=== PATIENT | male | born 1945 | race Caucasian/White ===

== ENCOUNTER → 2023-11-20 14:56 | Day surgery (SDC) | payer MEDICARE, SELFPAY ==
[2023-11-20] VITALS (15 sets, daily range): BP systolic 78–168; BP diastolic 46–81; BMI 20.7
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
[2023-11-20] MEDS: GlucaGen 1 MG IV (08:04)
[2023-11-20 08:34] LABS: % Basophils 0.2 % (0-2); % Immature Granulocytes 0.5 % (0-0.5); % Lymphocytes 7.3 % (20.5-51.1); % Monocytes 4.7 % (1.7-9.3); % Neutrophils 87.3 % (42.2-75.2); Absolute Immature Granulocytes 0.1 10^3/uL (0-0.05); Absolute Lymphocytes 1.2 10^3/uL (1.2-3.4); Absolute Monocytes 0.8 10^3/uL (0.1-0.6); Absolute Neutrophils 14.8 10^3/uL (1.4-6.5); Hematocrit 35.6 % (39.0-52.0); Hemoglobin 11.7 g/dL (13.0-18.0); Mean Corp Hgb Conc. 32.9 g/dL (33.0-37.0); Mean Corpuscular Hgb 29.5 pg (27.0-31.0); Mean Corpuscular Volume 89.7 fL (80.0-94.0); Mean Platelet Volume 11.1 fL (7.4-10.4); Nucleated Red Blood Cells % 0 % (-); Platelet Count 248 10^3/uL (130-400); Red Blood Cell Count 3.97 10^6/uL (4.70-6.10); Red Cell Dist. Width 14.7 % (11.5-14.5); White Blood Cell Count 16.9 10^3/uL (4.8-10.8)
[2023-11-20 08:45] LABS: ALT (SGPT) 16 U/L (0-50); AST (SGOT) 19 U/L (17-59); Albumin 4.4 g/dl (3.5-5.0); Alkaline Phosphatase 126 U/L (38-126); Blood Urea Nitrogen 25 mg/dl (9-20); Calcium 9.4 mg/dl (8.4-10.2); Carbon Dioxide 26 mmol/L (22-30); Chloride 106 mmol/L (98-107); Estimated Creatinine Clearance 30 ml/min; Glucose 117 mg/dl (70-99); Potassium 3.8 mmol/L (3.5-5.1); Sodium 143 mmol/L (135-145); Total Bilirubin 0.4 mg/dl (0.2-1.3); Total Protein 7.5 g/dl (6.3-8.2); eGFR 47.36
--- NOTE | 2023-11-20 09:02 | CON.GI ---
Addendum entered and electronically signed by Pablo Do MD 11/20/23 09:45:
I saw and examined the patient.
The [employer] or PA's note was reviewed and I agree with the note.
Comment: 78 yo male ate steak on Monday that did not pass. He has poor dentition. No prior food impaction. Hx traumatic brain injury and seizure d/oEG
REC:
EGD to remove food impaction
Original Note:
Consultation
-
Date/Time Consultation Requested: 11/20/23 0840
Date/Time Consultation Performed: 11/20/23 0900
Requesting Provider: KELLY Delgado
Performing Provider: Dr. Do/YVROSE Suarez
Reason for Consultation: food impaction
Medical History
Chief Complaint / HPI
Chief Complaint: food impaction
History of Present Illness:
78-year-old male with past medical history of traumatic brain injury, ataxia, hypertension, seizures with craniotomy and right-sided head plate presents to the emergency room with food bolus that occurred on Monday and present to the emergency
room this morning. Asked to evaluate for the same. The patient states that he was eating 2 pieces of steak on Monday which she states was rare. He states that the first piece went down without difficulty. However the second piece became lodged
in his esophagus. He has been unable to tolerate secretions ever since. He states that the size of the piece of steak was about the size of his thumb. He has no teeth. The patient denies any history of dysphagia or food impactions prior to this.
The patient takes aspirin but has been unable to take any of his medications since that time. The patient denies any fevers, chills, nausea, melena, hematochezia, odynophagia, early satiety or unintentional weight loss. The patient is currently
spitting secretions into a basin. He denies any abdominal pain. He denies any respiratory distress.
Past Medical History
Past Medical History: Other (Traumatic brain injury, ataxia, hypertension, seizures)
Past Surgical History: Other (Craniotomy with head plate, right hip fracture 2018, right femur fracture,)
Social History
Tobacco: Non-Smoker
Alcohol: None
Drug: None
Personal:
Living: With Family
Family History
Family History: Other (No family history gastrointestinal malignancy or inflammatory bowel disease)
Allergies / Home Medications
Allergy/AdvReac Type Severity Reaction Status Date / Time
No Known Allergies Allergy Verified 10/29/22 15:56
Medication Instructions Recorded
cholecalciferol (vitamin D3) 50 50 mcg PO DAILY Supplement 10/29/22
mcg (2,000 unit) capsule (Vitamin
D3)
levetiracetam 1,000 mg tablet 1,000 mg PO QPM Seizures 10/29/22
levetiracetam 1,000 mg tablet 500 mg PO DAILY Seizures 10/29/22
phenobarbital 32.4 mg tablet 68.8 mg PO DAILY Seizures 10/29/22
acetaminophen 500 mg tablet 1,000 mg PO Q6HPRN PRN fever, mild 11/01/22
to mod pain #100 tabs
aspirin 81 mg chewable tablet 81 mg PO DAILY #100 tabs 11/01/22
Review of Systems
-
All other systems: A 12 pt ROS was Negative except as stated above in HPI
Vital Signs
Temp Pulse Resp BP Pulse Ox
99.2 F 99 28 138/81 93
11/20/23 07:37 11/20/23 08:30 11/20/23 08:30 11/20/23 08:00 11/20/23 08:30
Physical Exam
Exam
General: Other (Patient sitting upright spitting clear secretions into basin)
HEENT: Anicteric
Respiratory: Clear
Cardiac: Regular Rhythm
GI: Soft, Non Tender, Non Distended and Normal Bowel Sounds
Skin: Warm and Dry
Neuro: AO x 3
Results
WBC 16.9 10^3/uL (4.8-10.8) H 11/20/23 08:06
Hgb 11.7 g/dL (13.0-18.0) L 11/20/23 08:06
Hct 35.6 % (39.0-52.0) L 11/20/23 08:06
MCV 89.7 fL (80.0-94.0) 11/20/23 08:06
Plt Count 248 10^3/uL (130-400) 11/20/23 08:06
Absolute Neuts (auto) 14.8 10^3/uL (1.4-6.5) H 11/20/23 08:06
Sodium 143 mmol/L (135-145) 11/20/23 08:06
Potassium 3.8 mmol/L (3.5-5.1) 11/20/23 08:06
Chloride 106 mmol/L (98-107) 11/20/23 08:06
Carbon Dioxide 26 mmol/L (22-30) 11/20/23 08:06
BUN 25 mg/dl (9-20) H 11/20/23 08:06
Creatinine 1.5 mg/dL (0.7-1.3) H 11/20/23 08:06
Calcium 9.4 mg/dl (8.4-10.2) 11/20/23 08:06
Total Bilirubin 0.4 mg/dl (0.2-1.3) 11/20/23 08:06
AST 19 U/L (17-59) 11/20/23 08:06
ALT 16 U/L (0-50) 11/20/23 08:06
Alkaline Phosphatase 126 U/L (38-126) 11/20/23 08:06
Diagnostic Image Results:
None
Prior GI Procedures:
EGD: None
Colonoscopy: Patient states he had colonoscopy approximately 1 year ago in [place]. He states he has a history of polyps.
Assessment / Plan
-
78-year-old male with past medical history of traumatic brain injury, ataxia, hypertension, seizures with craniotomy and right-sided head plate presents to the emergency room with food bolus that occurred on Monday and present to the emergency
room this morning. Patient with food bolus associated with eating steak on Monday. Spitting up secretions at this time unable to tolerate. Glucagon did not pass food bolus.
Impression:
Food bolus
Plan:
-EGD today
-Discussed with patient probable need for intubation giving the fact that it is a food bolus as well as spitting up secretions patient aware.
-Further recommendations post EGD.
-
-
Thank you for consultation and allowing me to participate in the patient's care. Please call the stone driller helper GI physician during the after hours with any questions or concerns.
[2023-11-20] MEDS: KEPPRA 1000 MG IV (09:17)
--- NOTE | 2023-11-20 09:43 | CM ---
Addendum entered by Ilda Dinero RN 11/20/23 14:36:
JODIE updated GI lab that patient will need an ambulance ride home as cannot burr picker.
Original Note:
JODIE spoke with patient's who confirmed the phone number as [phone] (cell) Patient's stated that she is unable to pick him up from the hospital. She further stated her children are unwilling to assist with transportation. Patient
will be available to supervise patient once he is returned home. JODIE updated ED PA and advised that patient will need assistance with transportation home.
== END | disposition home or self-care (01) ==
LOC: EMR 07:32 → SDS 14:56
PROVIDERS: Physician Assistant; EMERGENCY PHYSICIAN Emergency Medicine
DX: T18.128A Food in esophagus causing other injury, initial encounter (principal); W44.F3XA Food entering into or through a natural orifice, initial encounter; Q39.9 Congenital malformation of esophagus, unspecified; K22.89 Other specified disease of esophagus; K20.80 Other esophagitis without bleeding
CPT/HCPCS: 43247; 43239; 88305; 80053; 85025; 96374; 96375; 99285; J1610

== ENCOUNTER 2023-11-23 18:27 | Inpatient (IN) | payer MEDICARE, SELFPAY ==
[2023-11-23] VITALS (7 sets, daily range): BP systolic 113–147; BP diastolic 58–70; BMI 20.8; BMI 19.9
[2023-11-23 14:56] LABS: % Basophils 0.4 % (0-2); % Eosinophils 1.6 % (0-6); % Immature Granulocytes 0.3 % (0-0.5); % Monocytes 6.5 % (1.7-9.3); % Neutrophils 79.2 % (42.2-75.2); Absolute Eosinophils 0.2 10^3/uL (0-0.7); Absolute Lymphocytes 1.2 10^3/uL (1.2-3.4); Absolute Monocytes 0.7 10^3/uL (0.1-0.6); Absolute Neutrophils 7.9 10^3/uL (1.4-6.5); Hematocrit 31.6 % (39.0-52.0); Hemoglobin 10.4 g/dL (13.0-18.0); Mean Corp Hgb Conc. 32.9 g/dL (33.0-37.0); Mean Corpuscular Hgb 29.9 pg (27.0-31.0); Mean Corpuscular Volume 90.8 fL (80.0-94.0); Mean Platelet Volume 10.9 fL (7.4-10.4); Nucleated Red Blood Cells % 0 % (-); Platelet Count 221 10^3/uL (130-400); Red Blood Cell Count 3.48 10^6/uL (4.70-6.10); Red Cell Dist. Width 14.6 % (11.5-14.5)
[2023-11-23 15:04] LABS: ALT (SGPT) 14 U/L (0-50); AST (SGOT) 16 U/L (17-59); Albumin 3.8 g/dl (3.5-5.0); Alkaline Phosphatase 113 U/L (38-126); Blood Urea Nitrogen 13 mg/dl (9-20); Calcium 8.4 mg/dl (8.4-10.2); Carbon Dioxide 22 mmol/L (22-30); Chloride 108 mmol/L (98-107); Estimated Creatinine Clearance 38 ml/min; Glucose 114 mg/dl (70-99); Potassium 4.3 mmol/L (3.5-5.1); Sodium 136 mmol/L (135-145); Total Bilirubin 0.3 mg/dl (0.2-1.3); Total Protein 6.6 g/dl (6.3-8.2); eGFR > 60.00
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
--- NOTE | 2023-11-23 16:33 | CM ---
Alert awake confused patient who lives with his Suzette and grandson Walt who lives in a 2 story home with 2 step to enter and bed and bathroom on first floor. He is assisted in all activities of daily living.Spoke with Walt he requested
[facility] SNF. Will need auth.
[facility] /[facility] SNF history
Pharmacy [facility]
PCP DR Kellogg
PLAN To SNF after located and auth
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
[2023-11-23] MEDS: LUMINAL 64.7999999999999972 MG PO (20:49)
[2023-11-23] MEDS: COLACE 100 MG PO (20:49)
[2023-11-23] MEDS: KEPPRA 500 MG PO (20:50)
[2023-11-23] MEDS: HEPARIN 5000 UNITS SC (20:50)
[2023-11-24 03:42] LABS: Urine Albumin Trace (Neg - Trace); Urine Bilirubin Negative (Negative); Urine Character Slightly Cloudy (Clear); Urine Color Yellow; Urine Glucose Negative (Negative); Urine Ketone Negative (Negative); Urine Leukocyte Trace (Negative); Urine Nitrite Negative (Negative); Urine Occult Blood Negative (Negative); Urine Urobilinogen Negative (Neg - 1+); Urine pH 6.5 (5.0-9.0)
[2023-11-24 05:15] LABS: Urine Bacteria Many (Negative); Urine Red Blood Cell 0-2 /HPF (0-2); Urine Squamous Cell >30 /LPF (Few); Urine White Cell 26-30 /HPF (0-5)
[2023-11-24 07:30] VITALS: BP 129/67
[2023-11-24] MEDS: KEPPRA 500 MG PO ×2 (07:37→20:36)
[2023-11-24] MEDS: COLACE 100 MG PO ×2 (07:37→20:30)
[2023-11-24] MEDS: HEPARIN 5000 UNITS SC ×2 (07:38→20:30)
[2023-11-24 09:23] VITALS: BP 116/59; PULSE 79; O2SAT 95
[2023-11-24 09:39] LABS: % Basophils 0.5 % (0-2); % Eosinophils 2.7 % (0-6); % Immature Granulocytes 0.5 % (0-0.5); % Lymphocytes 29.9 % (20.5-51.1); % Monocytes 8.1 % (1.7-9.3); % Neutrophils 58.3 % (42.2-75.2); Absolute Eosinophils 0.2 10^3/uL (0-0.7); Absolute Lymphocytes 2.2 10^3/uL (1.2-3.4); Absolute Monocytes 0.6 10^3/uL (0.1-0.6); Absolute Neutrophils 4.3 10^3/uL (1.4-6.5); Hematocrit 32.6 % (39.0-52.0); Hemoglobin 10.3 g/dL (13.0-18.0); Mean Corp Hgb Conc. 31.6 g/dL (33.0-37.0); Mean Corpuscular Hgb 29.5 pg (27.0-31.0); Mean Corpuscular Volume 93.4 fL (80.0-94.0); Mean Platelet Volume 11.2 fL (7.4-10.4); Nucleated Red Blood Cells % 0 % (-); Platelet Count 222 10^3/uL (130-400); Red Blood Cell Count 3.49 10^6/uL (4.70-6.10); Red Cell Dist. Width 14.7 % (11.5-14.5); White Blood Cell Count 7.4 10^3/uL (4.8-10.8)
[2023-11-24 10:21] LABS: ALT (SGPT) 12 U/L (0-50); AST (SGOT) 14 U/L (17-59); Albumin 3.6 g/dl (3.5-5.0); Alkaline Phosphatase 116 U/L (38-126); Blood Urea Nitrogen 15 mg/dl (9-20); Calcium 8.4 mg/dl (8.4-10.2); Carbon Dioxide 25 mmol/L (22-30); Chloride 106 mmol/L (98-107); Creatine Phosphokinase 37 U/L (55-170); Estimated Creatinine Clearance 36 ml/min; Glucose 79 mg/dl (70-99); Magnesium 1.9 mg/dl (1.6-2.3); Potassium 3.9 mmol/L (3.5-5.1); Sodium 138 mmol/L (135-145); Total Bilirubin 0.5 mg/dl (0.2-1.3); Total Protein 6.3 g/dl (6.3-8.2); eGFR > 60.00
[2023-11-24 10:43] LABS: TSH 0.75 uIU/ml (0.47-4.68)
[2023-11-24 11:02] LABS: Vitamin B12 894 pg/ml (239-931)
--- NOTE | 2023-11-24 14:45 | PTCARENOTE ---
Patient transferred in to room 425. AAOx3, forgetful. Bed alarm placed for patient safety. Patient oriented to room and call bel system. Will monitor.
--- NOTE | 2023-11-24 14:54 | CM ---
Patient seen bedside, reports he wants to go home and does not want to go to SNF. Patient reports he lives with his and grandson. Patient reports he has had [facility] in the past and would like to return home with services. CM will continue to
follow for discharge planning needs.
Plan; return home with [facility] vs SNF
[2023-11-24 15:04] VITALS: BP 133/65
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
[2023-11-24 16:18] LABS: Urine Albumin Negative (Neg - Trace); Urine Bilirubin Negative (Negative); Urine Character Slightly Cloudy (Clear); Urine Color Yellow; Urine Glucose Negative (Negative); Urine Ketone Negative (Negative); Urine Leukocyte 2+ (Negative); Urine Nitrite Negative (Negative); Urine Occult Blood Negative (Negative); Urine Urobilinogen Negative (Neg - 1+); Urine pH 6.5 (5.0-9.0)
[2023-11-24 16:26] LABS: Urine Red Blood Cell 0-2 /HPF (0-2)
[2023-11-24 16:27] LABS: Urine Bacteria Many (Negative); Urine White Cell 21-25 /HPF (0-5)
--- NOTE | 2023-11-24 17:30 | W.PN.UPDATE ---
Update Note
Progress Note Update
Full consult dictated. 78 yo male with complaints of left hip pain after sustaining a fall. History of multiple falls in the past. History of right hip hemiarthroplasty and left THR. Radiographs revealed a fracture in the intertrochanteric region
of the left hip with fixation of the stem intact distal to the fracture. PE: Reveals tenderness with ROM of the left hip. Well healed incision. Calf soft. NVI distally. Radiographs and CT scan reviewed. Recommend 50% WB on left lower
extremity. Followup in the office in 4 weeks for repeat radiographs. Will attempt to have this heal without surgical intervention. Please call if further ortho issues.
[2023-11-24] MEDS: LUMINAL 64.7999999999999972 MG PO (18:10)
[2023-11-24 23:00] VITALS: BP 134/64
[2023-11-25 07:00] VITALS: BP 132/56
[2023-11-25 07:33] LABS: Hematocrit 28.4 % (39.0-52.0); Hemoglobin 9.5 g/dL (13.0-18.0); Mean Corp Hgb Conc. 33.5 g/dL (33.0-37.0); Mean Corpuscular Hgb 29.5 pg (27.0-31.0); Mean Corpuscular Volume 88.2 fL (80.0-94.0); Mean Platelet Volume 11.1 fL (7.4-10.4); Platelet Count 209 10^3/uL (130-400); Red Blood Cell Count 3.22 10^6/uL (4.70-6.10); Red Cell Dist. Width 14.6 % (11.5-14.5); White Blood Cell Count 7.9 10^3/uL (4.8-10.8)
[2023-11-25 08:04] LABS: Blood Urea Nitrogen 21 mg/dl (9-20); Calcium 8.3 mg/dl (8.4-10.2); Carbon Dioxide 25 mmol/L (22-30); Chloride 106 mmol/L (98-107); Estimated Creatinine Clearance 34 ml/min; Glucose 82 mg/dl (70-99); Potassium 3.7 mmol/L (3.5-5.1); Sodium 136 mmol/L (135-145); eGFR 56.23
[2023-11-25] MEDS: COLACE 100 MG PO ×2 (08:21→20:02)
[2023-11-25] MEDS: HEPARIN 5000 UNITS SC ×2 (08:22→20:03)
[2023-11-25] MEDS: KEPPRA 500 MG PO ×2 (08:22→20:12)
--- NOTE | 2023-11-25 10:49 | CM ---
Spoke with patients sppuse, would like referrals to [facility] and [facility].
Patient will need insurance auth.
Plan: skilled rehab once bed available and auth obtained.
[2023-11-25 10:50] VITALS: BP 113/60; PULSE 82
[2023-11-25 11:36] VITALS: BP 113/60
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
--- NOTE | 2023-11-25 12:18 | PTCARENOTE ---
Assumed care of pt from previous nurse. Pt on/off pleasant and agitated due to TBI, able to be redirected. Pt call gupta is within reach, pt does not ring shelly., bed alarm in place. will cont to monitor.
[2023-11-25 15:00] VITALS: BP 135/71
[2023-11-25] MEDS: LUMINAL 64.7999999999999972 MG PO (17:18)
[2023-11-25 23:32] VITALS: BP 120/53
[2023-11-26 07:00] VITALS: BP 105/64
[2023-11-26 07:51] LABS: Hemoglobin 10.1 g/dL (13.0-18.0); Mean Corp Hgb Conc. 32.6 g/dL (33.0-37.0); Mean Corpuscular Hgb 29.3 pg (27.0-31.0); Mean Corpuscular Volume 89.9 fL (80.0-94.0); Mean Platelet Volume 11.3 fL (7.4-10.4); Platelet Count 221 10^3/uL (130-400); Red Blood Cell Count 3.45 10^6/uL (4.70-6.10); Red Cell Dist. Width 14.9 % (11.5-14.5); White Blood Cell Count 8.7 10^3/uL (4.8-10.8)
[2023-11-26 08:34] LABS: Blood Urea Nitrogen 21 mg/dl (9-20); Calcium 8.7 mg/dl (8.4-10.2); Carbon Dioxide 25 mmol/L (22-30); Chloride 104 mmol/L (98-107); Estimated Creatinine Clearance 36 ml/min; Glucose 88 mg/dl (70-99); Potassium 4.1 mmol/L (3.5-5.1); Sodium 137 mmol/L (135-145); eGFR > 60.00
[2023-11-26] MEDS: HEPARIN 5000 UNITS SC ×2 (09:18→20:46)
[2023-11-26] MEDS: KEPPRA 500 MG PO ×2 (09:18→20:53)
[2023-11-26] MEDS: COLACE 100 MG PO ×2 (09:18→20:53)
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
[2023-11-26 11:10] VITALS: BP 114/52; BP 83/55; BP 96/43; PULSE 81; PULSE 90
[2023-11-26 15:00] VITALS: BP 141/69
[2023-11-26 17:05] VITALS: BP 141/69
[2023-11-26] MEDS: LUMINAL 64.7999999999999972 MG PO (17:58)
[2023-11-26 23:00] VITALS: BP 115/52
[2023-11-27 08:30] VITALS: BP 119/58
[2023-11-27 09:35] LABS: Hematocrit 30.5 % (39.0-52.0); Mean Corp Hgb Conc. 32.8 g/dL (33.0-37.0); Mean Corpuscular Hgb 29.8 pg (27.0-31.0); Mean Corpuscular Volume 90.8 fL (80.0-94.0); Mean Platelet Volume 10.9 fL (7.4-10.4); Platelet Count 243 10^3/uL (130-400); Red Blood Cell Count 3.36 10^6/uL (4.70-6.10); Red Cell Dist. Width 15.1 % (11.5-14.5); White Blood Cell Count 8.9 10^3/uL (4.8-10.8)
[2023-11-27 10:10] LABS: Blood Urea Nitrogen 26 mg/dl (9-20); Calcium 9.1 mg/dl (8.4-10.2); Carbon Dioxide 27 mmol/L (22-30); Chloride 105 mmol/L (98-107); Estimated Creatinine Clearance 34 ml/min; Glucose 90 mg/dl (70-99); Sodium 138 mmol/L (135-145); eGFR 56.23
[2023-11-27] MEDS: KEPPRA 500 MG PO ×2 (10:34→20:14)
[2023-11-27] MEDS: COLACE 100 MG PO ×2 (10:34→20:13)
[2023-11-27] MEDS: HEPARIN 5000 UNITS SC ×2 (10:34→20:13)
[2023-11-27 11:46] VITALS: BP 115/62; PULSE 86; O2SAT 100
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
--- NOTE | 2023-11-27 15:56 | CM ---
Patient seen at bedside with physician. Patient indicated that she would like patient to go to SNF at [facility]. CM left for admissions at [facility]. CM will continue to follow for discharge planning needs.
Plan; [facility] when bed available; tentatively tomorrow.
[2023-11-27 16:12] VITALS: BP 119/56
[2023-11-27] MEDS: LUMINAL 64.7999999999999972 MG PO (17:25)
[2023-11-27 23:00] VITALS: BP 138/60
[2023-11-28 07:15] VITALS: BP 113/65
[2023-11-28] MEDS: KEPPRA 500 MG PO ×2 (09:52→20:10)
[2023-11-28] MEDS: COLACE 100 MG PO ×2 (09:52→20:10)
[2023-11-28] MEDS: HEPARIN 5000 UNITS SC ×2 (09:52→20:11)
[2023-11-28 15:00] VITALS: BP 138/62
--- NOTE | 2023-11-28 16:59 | CM ---
Auth submitted to [employer] and awaiting response. Patient accepted for [facility] when auth received.
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
[2023-11-28] MEDS: LUMINAL 64.7999999999999972 MG PO (17:14)
[2023-11-28 22:51] VITALS: BP 118/54
--- NOTE | 2023-11-29 03:38 | DOWNTIME ---
There was a [employer] Downtime on 11/29/2023 from 0100 to 11/29/2023 at 0322. Downtime documentation of patient's care, including medication administrations, has been reconciled in the electronic record per guidelines. Refer to the
patient's paper chart under the miscellaneous tab to see printed paper medication records and downtime forms.
[2023-11-29 07:02] LABS: Hematocrit 30.7 % (39.0-52.0); Mean Corp Hgb Conc. 32.6 g/dL (33.0-37.0); Mean Corpuscular Hgb 29.5 pg (27.0-31.0); Mean Corpuscular Volume 90.6 fL (80.0-94.0); Mean Platelet Volume 10.9 fL (7.4-10.4); Platelet Count 260 10^3/uL (130-400); Red Blood Cell Count 3.39 10^6/uL (4.70-6.10); Red Cell Dist. Width 15.2 % (11.5-14.5); White Blood Cell Count 8.7 10^3/uL (4.8-10.8)
[2023-11-29 07:40] LABS: Blood Urea Nitrogen 35 mg/dl (9-20); Calcium 9.2 mg/dl (8.4-10.2); Carbon Dioxide 26 mmol/L (22-30); Chloride 102 mmol/L (98-107); Estimated Creatinine Clearance 31 ml/min; Glucose 90 mg/dl (70-99); Magnesium 2.2 mg/dl (1.6-2.3); Potassium 4.5 mmol/L (3.5-5.1); Sodium 137 mmol/L (135-145); eGFR 51.45
[2023-11-29] MEDS: COLACE 100 MG PO (08:01)
[2023-11-29] MEDS: KEPPRA 500 MG PO (08:01)
[2023-11-29] MEDS: HEPARIN 5000 UNITS SC (08:02)
[2023-11-29 08:12] VITALS: BP 114/57
--- NOTE | 2023-11-29 09:44 | CM ---
Patient accepted by [facility] and auth approved. CM called to patient , she indicated that she would like Adrian to sign form. Patient with questions about transfer, CM will update physician and requested update if possible. Auth number is
[id number] 11/28-12/10 next review date [phone]. CM updated Angela at [facility] Please call report to [phone]/fax [phone]. CM will complete the transportation forms and review IMM with patient. CM will continue to follow for discharge
planning needs.
Plan;SNF/ [facility] today.
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
[2023-11-29] MEDS: FLUZONE HIGH-DOSE QUAD 2023-24 0.699999999999999956 ML IM (13:51)
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
== END 2023-11-29 16:00 | DRG 561 ==
LOC: 4 WEST ACU 18:27
PROVIDERS: Hospitalist; Physician Assistant; ADMITTING PHYSICIAN Internal Medicine; ATTENDING PHYSICIAN Internal Medicine; CONSULT PHYSICIAN Orthopaedic Surgery; EMERGENCY PHYSICIAN Emergency Medicine; FAMILY PHYSICIAN Physician Assistant
DX: M97.02XA Periprosthetic fracture around internal prosthetic left hip joint, initial encounter (principal); F17.210 Nicotine dependence, cigarettes, uncomplicated; I71.40 Abdominal aortic aneurysm, without rupture, unspecified
CPT/HCPCS: 73502; 73700; 76770; 80048; 80053; 81003; 81015; 82550; 82607; 83735; 84443; 85025; 85027; 87070; 87086; 90662; 97110; 97116; 97167; 97530; 97535; 99285; G0008

== ENCOUNTER → 2023-12-12 10:53 | Outpatient (REF) | payer MEDICARE, SELFPAY ==
[2023-12-12 12:05] LABS: % Basophils 0.4 % (0-2); % Eosinophils 0.8 % (0-6); % Immature Granulocytes 0.4 % (0-0.5); % Lymphocytes 21.8 % (20.5-51.1); % Monocytes 8.4 % (1.7-9.3); % Neutrophils 68.2 % (42.2-75.2); Absolute Eosinophils 0.1 10^3/uL (0-0.7); Absolute Lymphocytes 1.7 10^3/uL (1.2-3.4); Absolute Monocytes 0.7 10^3/uL (0.1-0.6); Absolute Neutrophils 5.4 10^3/uL (1.4-6.5); Hemoglobin 9.1 g/dL (13.0-18.0); Mean Corp Hgb Conc. 31.4 g/dL (33.0-37.0); Mean Corpuscular Hgb 28.9 pg (27.0-31.0); Mean Corpuscular Volume 92.1 fL (80.0-94.0); Mean Platelet Volume 11.2 fL (7.4-10.4); Nucleated Red Blood Cells % 0 % (-); Platelet Count 216 10^3/uL (130-400); Red Blood Cell Count 3.15 10^6/uL (4.70-6.10)
[2023-12-12 12:20] LABS: Blood Urea Nitrogen 38 mg/dl (9-20); Calcium 8.3 mg/dl (8.4-10.2); Carbon Dioxide 22 mmol/L (22-30); Chloride 108 mmol/L (98-107); Glucose 86 mg/dl (70-99); Potassium 3.9 mmol/L (3.5-5.1); Sodium 136 mmol/L (135-145); eGFR 47.36
== END ==
LOC: OLABP 10:53
PROVIDERS: ATTENDING PHYSICIAN Family Medicine
DX: G40.909 Epilepsy, unspecified, not intractable, without status epilepticus (principal); D64.9 Anemia, unspecified; I10 Essential (primary) hypertension; I71.40 Abdominal aortic aneurysm, without rupture, unspecified
CPT/HCPCS: 36415; 80048; 85025

== ENCOUNTER 2024-05-03 19:09 | Inpatient (IN) | payer MEDICARE, SELFPAY ==
[2024-05-03] VITALS (8 sets, daily range): BP systolic 98–148; BP diastolic 49–81; BMI 22.1; BMI 20.9
[2024-05-03 17:29] LABS: % Basophils 0.2 % (0-2); % Eosinophils 0.3 % (0-6); % Immature Granulocytes 0.4 % (0-0.5); % Lymphocytes 4.3 % (20.5-51.1); % Monocytes 5.1 % (1.7-9.3); % Neutrophils 89.7 % (42.2-75.2); Absolute Immature Granulocytes 0.1 10^3/uL (0-0.05); Absolute Lymphocytes 0.6 10^3/uL (1.2-3.4); Absolute Monocytes 0.7 10^3/uL (0.1-0.6); Absolute Neutrophils 11.8 10^3/uL (1.4-6.5); Hematocrit 33.7 % (39.0-52.0); Hemoglobin 11.2 g/dL (13.0-18.0); Mean Corp Hgb Conc. 33.2 g/dL (33.0-37.0); Mean Corpuscular Hgb 30.9 pg (27.0-31.0); Mean Corpuscular Volume 93.1 fL (80.0-94.0); Mean Platelet Volume 10.2 fL (7.4-10.4); Nucleated Red Blood Cells % 0 % (-); Platelet Count 193 10^3/uL (130-400); Red Blood Cell Count 3.62 10^6/uL (4.70-6.10); Red Cell Dist. Width 12.9 % (11.5-14.5); White Blood Cell Count 13.1 10^3/uL (4.8-10.8)
--- NOTE | 2024-05-03 17:45 | ED.GENMED ---
History of Present Illness
General
Chief Complaint: Fall
Source: patient
Exam Limitations: none
Time Seen by Provider: 05/03/24 15:27
Nursing documentation reviewed up to this point in time: agreed with
History of Present Illness
History of Present Illness:
Patient is a 78-year-old male presenting to the emergency department via EMS that fell after he claims he had a mechanical fall while walking backwards with his walker claims and he mainly hit his right hip but did not hit his head adamantly denies
any neck pain or any additional symptoms other than right-sided hip discomfort. Had bilateral hip replacement in the past. Patient is not on blood thinners. Patient does live at a private residence with an elderly spouse
Past History
Past History
ED Past Medical History: HTN, Seizures, Other (Ataxia, Traumatic brain injury, Left hip dislocation), Other (phenytoin toxicity 2017, 2019) and Other (right humeral fracture, vitamin D deficiency)
ED Past Surgical History: Orthopedic (Left hip replacement, right partial hip replacement, right femur fracture) and Other (brain surgery, craniotomy with right-sided head plate)
Social History
Tobacco: Smoker
Alcohol: None
Drug: None
Personal:
Living: with family
Employment: Not employed
Family History
Family History: Other (reviewed and Noncontributory)
Review of Systems
Review of Systems
Allergies reviewed?: Yes
All Other Systems: ROS reviewed and negative except as documented in HPI and ROS
Phy Exam
Physical Exam
Physical Exam:
GENERAL: Alert , in no apparent distress
EYE: pupils equal and reactive
NECK: Supple, no significant adenopathy.
ENT: o/p clr, mmm.
CARDIAC: Regular rate and rhythm .
LUNGS: Clear breath sounds bilaterally, no acute respiratory distress, no wheezes/rales/rhonchi
ABDOMEN: Soft, without focal tenderness, no r/g, no cvat
NEUROLOGICAL: Alert and oriented, no focal neuro deficits
SKIN: Warm and dry, skin intact.
MUSCULOSKELETAL: No overlying skin changes to the right hip there is tenderness palpation to the right lateral hip region. Able to range at the hip patient preferably keeping his right leg at knee flexion and hip flexion. No signs of trauma to the
head or neck. Small cut to the right elbow but superficial no edema, well perfused.
PSYCH: Normal and appropriate interaction.
Course
Orders/Labs/Results
Orders:
Orders
05/03/24 Dinner
Regular
At Your Request: Full Participation
05/03/24 15:30
Hip, Right 2-3 Views [CR Hip - RT w/wo Pel 2-3 Vw*] Urgent
Comment:
Reason For Exam: right hip pain after fall
Include a pelvis x-ray?: Yes
05/03/24 16:31
CT Pelvis W/o Iv Contrast Urgent
Comment:
Reason For Exam: right hip pain afterfall, cannot walk
Pt Eval And Treat Urgent
Activity Level: Ambulate
05/03/24 17:00
CT Head W/o Iv Contrast Urgent
Comment:
Reason For Exam: fall
05/03/24 17:20
CBC/With Diff [Complete Blood Count/With Diff] Urgent
CMP [Comprehensive Metabolic Panel] Urgent
05/03/24 18:07
Admit/Transfer Patient As Directed
Co-Sign Provider:
Level of Care: Inpatient admission
Assign to:: Telemetry
Physician / Group: conchita
Diagnosis: fall
Reason for Telemetry: Arrhythmia
Date to Stop Telemetry: 05/06/24
Time to Stop Telemetry: 11:00
Reason for Hospitalization: fall
Expected length of stay greater than two midnights?: Yes
ELOS- Estimated Length of Stay in days: 2
I certify the patient meets the requirements for IP care: Yes
PRN Pain Medication Management As Directed
May give lesser potent ordered pain med per pt: Yes
preference::
Protocol:: Medication orders for pain may be administered in a
manner that supports deferring to patient preference
when the pt is:
- Requesting an ordered lesser potent pain medication.
Least to most potent pain medications are defined
as: acetaminophen < NSAID < tramadol < opioids
(morphine, oxycodone, hydromorphone).
- Requesting a lesser dose of the same medication IF
ORDERED.
- Requesting a less intrusive route of administration
if both routes are prescribed by the provider (PO <
IV).
05/03/24 18:08
Code Status As Directed
Resuscitation Status: Full Code
05/03/24 18:10
CR Chest Portable - 1 View Urgent
Comment:
Reason For Exam: cough,
Reason Study Needs to be Portable: Unable to Transport
05/03/24 18:12
COVID-19 Antigen Urgent
Source: Nasal Swab
Urinalysis Reflex To Culture Urgent
Date Specimen was Collected: 05/03/24
Time Specimen was Collected: 18:11
Urine Microscopic Reflex Cult Urgent
Urine Culture Urgent
JOVANNA Source: U
Specimen Description:
Date Specimen was Collected: 05/03/24
Time Specimen was Collected: 18:11
0.9% Sodium Chloride 500 ml [Nss] 500 ml IV BOLUS
05/03/24 18:31
Lactate Level [Lactic Acid] Urgent
05/03/24 19:01
EKG [Electrocardiogram (*1)] Routine
Reason for Study: Bradycardia / Tachycardia
05/03/24 19:36
0.9% Sodium Chloride 1000 ml [Nss] 1,000 ml IV 80 mls/hr
Acetaminophen [Tylenol] 650 mg PO Q4HPRN PRN
05/03/24 19:36
Activity As Directed
Activity Level: As Tolerated
Pneumatic Compression Sleeves As Directed
Type: Knee high
Vital Signs As Directed
Frequency: Per unit guidelines
Ot Eval And Treat Routine
DX Deep Vein Thrombosis Video Routine
05/04/24 06:53
Complete Blood Count/With Diff IN AM
Comprehensive Metabolic Panel IN AM
05/04/24 08:00
Nicotine [Nicoderm Transdermal] 14 mg TRANSDERM DAILY
05/06/24 11:00
DC Protocol for Telemetry ONCE
Abnormal Lab Results
05/03/24 05/03/24
17:20 18:12
WBC 13.1 H 10^3/uL
(4.8-10.8)
RBC 3.62 L 10^6/uL
(4.70-6.10)
Hgb 11.2 L g/dL
(13.0-18.0)
Hct 33.7 L %
(39.0-52.0)
Abs Immat Gran (auto) 0.1 H 10^3/uL
(0-0.05)
Absolute Neuts (auto) 11.8 H 10^3/uL
(1.4-6.5)
Absolute Lymphs (auto) 0.6 L 10^3/uL
(1.2-3.4)
Absolute Monos (auto) 0.7 H 10^3/uL
(0.1-0.6)
Neutrophils % 89.7 H %
(42.2-75.2)
Lymphocytes % 4.3 L %
(20.5-51.1)
BUN 29 H mg/dl
(9-20)
Glucose 156 H mg/dl
(70-99)
Ur Occult Blood Reflex Trace A
(Negative)
Urine Nitrite (Reflex) Positive A
(Negative)
Leukocyte Esterase Rfl 2+ A
(Negative)
Urine WBC (Reflex) 16-20 A /HPF
(0-5)
Urine Bacteria (Reflex) Moderate A
(Negative)
05/03/24 17:20
05/03/24 17:20
Vital Signs
Initial and Last Documented VS:
Initial Vital Signs
Temp Pulse Resp BP Pulse Ox
97.8 F 107 20 148/65 93
05/03/24 13:50 05/03/24 13:50 05/03/24 13:50 05/03/24 13:50 05/03/24 13:50
Last Documented Vital Signs
Temp Pulse Resp BP Pulse Ox
97.8 F 95 20 116/53 93
05/05/24 15:03 05/05/24 15:03 05/05/24 15:03 05/05/24 15:03 05/05/24 15:03
MDM/Problems Addressed
MDM/Problems Addressed:
78-year-old male presenting to the emergency department today with concerns of right-sided hip discomfort after ground-level fall after walking backwards with a walker hit his right hip directly denies any head trauma and neck injury no numbness or
weakness. Small scrape to the right elbow which was wrapped here. Otherwise x-ray here without signs of acute fracture patient does not replaced hip. PT was salted and assessed the patient who was unable to ambulate without significant
assistance. It appears unsafe to discharge the patient home in this condition concerning he lives with an elderly . Additional CT scan ordered to look for occult pubic fracture but otherwise will need admission for potential placement. Basic
labs sent as well.
*Critical Care Note
Total Time (30-74mins, 75-104mins- exclusive of procedures): Not Applicable
ED Attending Note
-
Portions of this chart may have been created with voice recognition software.� Occasional wrong word or��sound alike� substitutions may have occurred due to the inherent limitations of voice recognition software.
Discharge Plan
Departure
Patient Disposition: Admit
Date of Disposition: 05/03/24
Time of Disposition: 17:51
Admit to: Med/Surg
Admit to doctor: Marti
Presentation/result/management discussed w/ accepting MD/DO: Hospitalist
Patient with high blood pressure during this ER visit?: No
Condition: Good
Covid-19: Not Applicable
Discharge Problem:
Acute pain of right hip, Ambulatory dysfunction
Interventions
Interventions:
*Risk Screen - Suicide Last Done: 05/03/24 23:02
*General Assessment Last Done: 05/03/24 13:50
*Neglect/Abuse Screening Last Done: 05/03/24 13:50
ED- Fall Risk Assessment Last Done: 05/03/24 13:58
*ED COVID-19 Vaccine History Last Done: 05/03/24 23:02
*Nursing Disposition Last Done: 05/03/24 19:45
ED-Musculoskeletal Assessment Last Done: 05/03/24 13:58
ED- Neurological Assessment Last Done: 05/03/24 13:58
ED-Skin Assessment Last Done: 05/03/24 13:58
Discharge Date and Time
Discharge Date/Time: 05/03/24 19:46
[2024-05-03 17:49] LABS: ALT (SGPT) 18 U/L (0-50); AST (SGOT) 25 U/L (17-59); Alkaline Phosphatase 91 U/L (38-126); Blood Urea Nitrogen 29 mg/dl (9-20); Calcium 8.8 mg/dl (8.4-10.2); Carbon Dioxide 26 mmol/L (22-30); Chloride 104 mmol/L (98-107); Estimated Creatinine Clearance 38 ml/min; Glucose 156 mg/dl (70-99); Potassium 4.6 mmol/L (3.5-5.1); Sodium 141 mmol/L (135-145); Total Bilirubin 0.5 mg/dl (0.2-1.3); Total Protein 6.7 g/dl (6.3-8.2); eGFR 56.23
--- NOTE | 2024-05-03 18:04 | PHANOTE ---
Med Rec Note:
Pt stated he did not know his medications, stated his takes care of them for him. Tried to call pt's @ 1800, no answer. Home med list compiled from Dr Benitez and [facility]W. Left unconfirmed due to Dr Benitez showing last fills for medications in
December.
--- NOTE | 2024-05-03 18:13 | HPS.HSE ---
Family Physician
-
Family Physician: NOT KNOW UNKNOWN - PT DOES
Chief Complaint
-
fall
History of Present Illness
78-year-old male past medical history of left periprosthetic femur fracture, ambulatory dysfunction, abdominal aortic aneurysm, CKD 2A, traumatic brain injury status post plate placement, seizure history, presenting with fall after walking backwards
with his walker. He claims he hit his right hip did not hit his head denies head or neck pain. He denies any dizziness.
He states he has been having intermittent diarrhea for the past 6-month but started having diarrhea since yesterday. He denies any nausea vomiting or abdominal pain. He also developed a cough since yesterday. He denies any shortness of breath or
chest pain. He denies any urinary symptoms. He denies any fevers or chills.
He smokes a pack of cigarettes a day. He denies alcohol use.
Medical History
Past Medical History
Past Medical History: Reports Other (left periprosthetic femur fracture, ambulatory dysfunction, abdominal aortic aneurysm, CKD 2A, traumatic brain injury status post plate placement, seizure history,)
Past Surgical History: Reports Other ( Orthopedic (Left hip replacement, right partial hip replacement, right femur fracture) and Other (brain surgery, craniotomy with right-sided head plate))
Social History
Tobacco: Smoker
Alcohol: None
Drug: None
Family History
Family History: Not pertinent
Allergies / Home Medications
Allergies reflects when Allergies were last updated in [facility].
Home Medications with original date entered in [facility]
Allergy/Medication List:
Allergies
Allergy/AdvReac Type Severity Reaction Status Date / Time
No Known Allergies Allergy Verified 10/29/22 15:56
Home Medications
phenobarbital 32.4 mg tablet 64.8 mg PO QPM Seizures 10/29/22
levetiracetam 500 mg tablet (Keppra) 500 mg PO QPM Seizures 11/20/23
levetiracetam 500 mg tablet 1,000 mg PO DAILY 05/03/24
Review of Systems
-
History Source: Patient
A 12 point ROS was completed and negative except as noted: Yes
Constitutional: Reports No Symptoms
EENT: Reports No Symptoms
Respiratory: Reports See HPI
Cardiac: Reports No Symptoms
Abdomen/GI: Reports See HPI
: Reports No Symptoms
Musculoskeletal: Reports No Symptoms
Skin: Reports No Symptoms
Neurological: Reports No Symptoms
Endocrine: Reports No Symptoms
Hematologic/Lymphatic: Reports No Symptoms
Psych: Reports No Symptoms
Physical Exam
Vital Signs
Vital Signs
Temp Pulse Resp BP Pulse Ox
97.8 F 103 28 144/76 93
05/03/24 13:50 05/03/24 15:15 05/03/24 15:15 05/03/24 15:00 05/03/24 15:15
Physical Exam
General: Well Developed, Well Nourished and No Apparent Distress
HEENT: NormoCephalic, Moist mucous membranes and Atraumatic
Respiratory: Clear
Cardiac: S1/S2 and Regular Rhythm; No Murmur or Rub
GI: Soft, Non Tender, Non Distended and Normal Bowel Sounds; No Organomegaly
Rectal: Deferred by Provider
Musculoskeletal: No Clubbing, No Cyanosis and No Edema
Skin: No Rash
Neuro: Nonfocal/grossly intact
Laboratory Results
-
05/03/24 17:20
05/03/24 17:20
Laboratory Results
Total Bilirubin 0.5 mg/dl (0.2-1.3) 05/03/24 17:20
AST 25 U/L (17-59) 05/03/24 17:20
ALT 18 U/L (0-50) 05/03/24 17:20
Alkaline Phosphatase 91 U/L (38-126) 05/03/24 17:20
Data Reviewed
-
Lab Data: Labs Reviewed by me
Old Records: Reviewed
Impression/Plan
-
IMPRESSION:
PLAN:
# Fall/right hip pain secondary to possible hypovolemia from acute gastroenteritis versus pneumonia
# Chronic ambulatory dysfunction
-Blood pressure is 90 systolic, heart rate in the 110s, diarrhea smell apparent on examination
-Check stool culture, C. difficile, norovirus
-Check urinalysis
-Check lactic
-IV fluids
-Check chest x-ray
-Check COVID
-Hip x-ray no acute abnormality
-CT head/pelvis pending to assess for occult fracture
-PT/OT
History of bilateral hip replacements
Abdominal aortic aneurysm
CKD 2
-Renal function at baseline
History of traumatic brain injury with plate placement
History of seizures
-Continue Keppra, phenobarbital
Smoker
-Nicotine patch
Full code
DVT prophylaxis�SCDs
Regular diet
[2024-05-03 18:26] LABS: Urine Albumin Trace (Neg - Trace); Urine Bilirubin Negative (Negative); Urine Character Slightly Cloudy (Clear); Urine Color Yellow; Urine Glucose Negative (Negative); Urine Ketone Negative (Negative); Urine Leukocyte 2+ (Negative); Urine Nitrite Positive (Negative); Urine Occult Blood Trace (Negative); Urine Urobilinogen Negative (Neg - 1+)
[2024-05-03 18:29] LABS: COVID-19 Antigen Negative (Negative)
[2024-05-03] MEDS: NSS 500 IV (18:31)
[2024-05-03 18:40] LABS: Urine Triple Phosphate Crystal Present
[2024-05-03 18:41] LABS: Urine Bacteria Moderate (Negative); Urine White Cell 16-20 /HPF (0-5)
[2024-05-03 18:42] LABS: Urine Squamous Cell 0-2 /LPF (Few); Urine Urothelial Cell 0-2 /LPF (FEW)
[2024-05-03 18:54] LABS: Lactic Acid 1.7 mmol/L (0.7-2.0)
[2024-05-03 20:01] LABS: Urine Red Blood Cell 0-2 /HPF (0-2)
--- NOTE | 2024-05-03 20:30 | PTCARENOTE ---
Called [employer] to report diarrhea according to the hospitalist note. Pt on the floor. Admission made aware of the note about diarrhea and need to rule out norovirus, C-diff and stool studies. Pt is to be transferred to room 424 in 4W. Pt was pulled
over to his bed up on admission to . Pt is oriented X2, confused to the time. Pt offers no complain of pain, SOB, or diarrhea. Pt on S.Tachycardia on telemonitor. VSS (T=98.7, WN=815, RR=18, SE=376/49, SpO2=94% on RA). Pt placed on bed alarm for
safety and transferred to room 424, NAKIA Martínez to see the pt.
[2024-05-03] MEDS: NSS 1000 IV (22:59)
[2024-05-04] VITALS (7 sets, daily range): BP systolic 105–120; BP diastolic 53–75; PULSE 87; O2SAT 90
[2024-05-04 07:26] LABS: % Basophils 0.4 % (0-2); % Eosinophils 2.1 % (0-6); % Immature Granulocytes 1.6 % (0-0.5); % Monocytes 6.1 % (1.7-9.3); % Neutrophils 75.8 % (42.2-75.2); Absolute Eosinophils 0.2 10^3/uL (0-0.7); Absolute Immature Granulocytes 0.2 10^3/uL (0-0.05); Absolute Lymphocytes 1.4 10^3/uL (1.2-3.4); Absolute Monocytes 0.6 10^3/uL (0.1-0.6); Absolute Neutrophils 7.7 10^3/uL (1.4-6.5); Hematocrit 31.7 % (39.0-52.0); Hemoglobin 10.7 g/dL (13.0-18.0); Mean Corp Hgb Conc. 33.8 g/dL (33.0-37.0); Mean Corpuscular Volume 91.9 fL (80.0-94.0); Nucleated Red Blood Cells % 0 % (-); Platelet Count 166 10^3/uL (130-400); Red Blood Cell Count 3.45 10^6/uL (4.70-6.10); Red Cell Dist. Width 13.1 % (11.5-14.5); White Blood Cell Count 10.1 10^3/uL (4.8-10.8)
[2024-05-04 07:37] LABS: ALT (SGPT) 14 U/L (0-50); AST (SGOT) 20 U/L (17-59); Albumin 3.4 g/dl (3.5-5.0); Alkaline Phosphatase 81 U/L (38-126); Blood Urea Nitrogen 27 mg/dl (9-20); Calcium 8.4 mg/dl (8.4-10.2); Carbon Dioxide 24 mmol/L (22-30); Chloride 108 mmol/L (98-107); Estimated Creatinine Clearance 36 ml/min; Glucose 93 mg/dl (70-99); Potassium 4.1 mmol/L (3.5-5.1); Sodium 141 mmol/L (135-145); Total Bilirubin 0.6 mg/dl (0.2-1.3); eGFR 56.23
[2024-05-04] MEDS: NICODERM TRANSDERMAL 14 MG TRANSDERM (08:16)
[2024-05-04] MEDS: KEPPRA 1000 MG PO (08:17)
[2024-05-04] MEDS: NSS 1000 IV (10:05)
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
[2024-05-04] MEDS: KEPPRA 500 MG PO (17:24)
[2024-05-04] MEDS: LOVENOX 40 MG SC (17:24)
[2024-05-04] MEDS: LUMINAL 64.8 MG PO (17:24)
[2024-05-05] MEDS: NSS 1000 IV (02:03)
[2024-05-05 03:24] VITALS: BP 124/62
[2024-05-05 07:08] VITALS: BP 106/56
[2024-05-05 08:22] LABS: Hemoglobin 10.1 g/dL (13.0-18.0); Mean Corp Hgb Conc. 34.8 g/dL (33.0-37.0); Mean Corpuscular Hgb 31.5 pg (27.0-31.0); Mean Corpuscular Volume 90.3 fL (80.0-94.0); Mean Platelet Volume 11.2 fL (7.4-10.4); Platelet Count 145 10^3/uL (130-400); Red Blood Cell Count 3.21 10^6/uL (4.70-6.10); Red Cell Dist. Width 13.1 % (11.5-14.5); White Blood Cell Count 11.9 10^3/uL (4.8-10.8)
[2024-05-05 08:35] LABS: Blood Urea Nitrogen 25 mg/dl (9-20); Carbon Dioxide 20 mmol/L (22-30); Chloride 111 mmol/L (98-107); Estimated Creatinine Clearance 36 ml/min; Glucose 90 mg/dl (70-99); Potassium 3.9 mmol/L (3.5-5.1); Sodium 141 mmol/L (135-145); eGFR 56.23
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
[2024-05-05] MEDS: NICODERM TRANSDERMAL 14 MG TRANSDERM (08:45)
[2024-05-05] MEDS: KEPPRA 1000 MG PO (08:46)
--- NOTE | 2024-05-05 11:29 | CM ---
CM following re: discharge planning.
Reviewed pt's chart, met with pt and spoke to pt's spouse over the phone.
Pt is a 78 year old male, admitted with primary dx of fall.
Pt reports he lives with spouse 2SH, 2 steps to enter, has supportive son. pt reports he ambulates with a walker, known to [facility] and was before at [facility].
PT and OT evaluations noted - SNF level of care recommended.
Both pt and his spouse are aware, expressed their agreement. A list of SNFs provided to the pt and his spouse. Following SNFs preferred: [facility] #1 preference. Back up plan - [facility].
A referral to above SNFs made. Awaiting for determination.
D/c plan: preferred SNF: [facility] or [facility]
CM will follow to assist pt with discharge to a preferred SNF.
[2024-05-05 11:50] VITALS: BP 92/54
[2024-05-05 15:03] VITALS: BP 116/53
[2024-05-05] MEDS: LUMINAL 64.8 MG PO (17:20)
[2024-05-05] MEDS: KEPPRA 500 MG PO (17:20)
[2024-05-05] MEDS: LOVENOX 40 MG SC (17:20)
[2024-05-05 19:21] VITALS: BP 117/72
[2024-05-05 23:09] VITALS: BP 140/68
[2024-05-06 03:20] VITALS: BP 139/66
[2024-05-06 07:35] VITALS: BP 132/64
[2024-05-06] MEDS: KEPPRA 1000 MG PO (08:24)
[2024-05-06] MEDS: NICODERM TRANSDERMAL 14 MG TRANSDERM (08:24)
[2024-05-06 08:38] LABS: Hematocrit 28.7 % (39.0-52.0); Hemoglobin 9.8 g/dL (13.0-18.0); Mean Corp Hgb Conc. 34.1 g/dL (33.0-37.0); Mean Corpuscular Hgb 30.3 pg (27.0-31.0); Mean Corpuscular Volume 88.9 fL (80.0-94.0); Mean Platelet Volume 11.2 fL (7.4-10.4); Platelet Count 151 10^3/uL (130-400); Red Blood Cell Count 3.23 10^6/uL (4.70-6.10); White Blood Cell Count 10.8 10^3/uL (4.8-10.8)
[2024-05-06 08:50] LABS: Blood Urea Nitrogen 24 mg/dl (9-20); Calcium 8.4 mg/dl (8.4-10.2); Carbon Dioxide 19 mmol/L (22-30); Chloride 109 mmol/L (98-107); Estimated Creatinine Clearance 36 ml/min; Glucose 90 mg/dl (70-99); Potassium 3.9 mmol/L (3.5-5.1); Sodium 141 mmol/L (135-145); eGFR 56.23
[2024-05-06 11:20] VITALS: BP 135/69
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
[2024-05-06 15:10] VITALS: BP 120/68
[2024-05-06] MEDS: KEPPRA 500 MG PO (17:12)
[2024-05-06] MEDS: LOVENOX 40 MG SC (17:12)
[2024-05-06] MEDS: LUMINAL 64.8 MG PO (17:12)
[2024-05-06 19:40] VITALS: BP 137/65
[2024-05-06 23:22] VITALS: BP 139/70
[2024-05-07 03:26] VITALS: BP 105/51
[2024-05-07] MEDS: NICODERM TRANSDERMAL 14 MG TRANSDERM (08:07)
[2024-05-07] MEDS: KEPPRA 1000 MG PO (08:07)
[2024-05-07 08:27] VITALS: BP 127/64
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
[2024-05-07 08:51] LABS: Hematocrit 28.2 % (39.0-52.0); Hemoglobin 9.8 g/dL (13.0-18.0); Mean Corp Hgb Conc. 34.8 g/dL (33.0-37.0); Mean Corpuscular Hgb 30.5 pg (27.0-31.0); Mean Corpuscular Volume 87.9 fL (80.0-94.0); Mean Platelet Volume 10.8 fL (7.4-10.4); Platelet Count 176 10^3/uL (130-400); Red Blood Cell Count 3.21 10^6/uL (4.70-6.10); Red Cell Dist. Width 12.9 % (11.5-14.5); White Blood Cell Count 9.6 10^3/uL (4.8-10.8)
[2024-05-07 09:06] LABS: Blood Urea Nitrogen 22 mg/dl (9-20); Calcium 8.6 mg/dl (8.4-10.2); Carbon Dioxide 22 mmol/L (22-30); Chloride 108 mmol/L (98-107); Estimated Creatinine Clearance 38 ml/min; Glucose 91 mg/dl (70-99); Sodium 141 mmol/L (135-145); eGFR > 60.00
[2024-05-07 11:26] VITALS: BP 123/70; PULSE 87; O2SAT 94
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
[2024-05-07 12:18] VITALS: BP 116/62
--- NOTE | 2024-05-07 16:05 | CM ---
Addendum entered by Fiona Moore 05/07/24 16:23:
[facility] skilled rehab in [facility]
Reference # [id number]
Approved start date 05/08/23, end date 05/20/24.
Addendum entered by Fiona Moore 05/07/24 16:10:
[facility] NPI# [id number]
Dr Patel NPI# [id number]
Original Note:
Patient seen bedside.
PT/OT recommending acute vs skilled.
PMR consultation completed- recommending skilled rehab.
Spoke with [facility], insurance [employer], patient would be responsible for 40% after deductible met.
Spouse would like [facility].
Will initiate [employer] Auth.
Plan: skilled rehab once insurance auth received.
[2024-05-07 16:52] VITALS: BP 144/79
[2024-05-07] MEDS: LOVENOX 40 MG SC (17:15)
[2024-05-07] MEDS: LUMINAL 64.8 MG PO (17:16)
[2024-05-07] MEDS: KEPPRA 500 MG PO (17:18)
[2024-05-07 23:05] VITALS: BP 126/65
[2024-05-08 07:30] VITALS: BP 138/61
[2024-05-08] MEDS: KEPPRA 1000 MG PO (07:50)
[2024-05-08] MEDS: NICODERM TRANSDERMAL 14 MG TRANSDERM (07:51)
[2024-05-08 08:49] VITALS: BP 101/67; PULSE 90; O2SAT 96
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
--- NOTE | 2024-05-08 10:39 | CM ---
Addendum entered by Fiona Moore 05/08/24 15:06:
Spoke with spouse and she is aware of transfer today, requested call from MD.
TT to MD.
Addendum entered by Fiona Moore 05/08/24 12:50:
IMM reviewed with patient.
Added to chart.
Addendum entered by Fiona Moore 05/08/24 12:37:
Left VM for spouse re d/c today.
Original Note:
Patient for transfer to [facility] today.
Ambulance transport forms on chart.
Plan: [facility]
Report#[id number]
[2024-05-08 13:42] VITALS: BP 123/57
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
== END 2024-05-08 14:45 | DRG 556 ==
LOC: 4 WEST ACU 19:09
PROVIDERS: Hospitalist; Physician Assistant; Student in an Organized Health Care Education/Training Program; ADMITTING PHYSICIAN Hospitalist; ATTENDING PHYSICIAN Internal Medicine; CONSULT PHYSICIAN Physical Medicine & Rehabilitation; EMERGENCY PHYSICIAN Emergency Medicine
DX: R26.2 Difficulty in walking, not elsewhere classified (principal); Z11.52 Encounter for screening for COVID-19; F17.210 Nicotine dependence, cigarettes, uncomplicated; N18.31 Chronic kidney disease, stage 3a; I71.40 Abdominal aortic aneurysm, without rupture, unspecified; E86.1 Hypovolemia; R19.7 Diarrhea, unspecified
CPT/HCPCS: 70450; 71045; 72192; 73502; 80048; 80053; 81003; 81015; 83605; 85025; 85027; 87086; 87811; 93005; 97116; 97167; 97530; 97535; 99285

== ENCOUNTER 2025-06-25 23:21 | Inpatient (IN) | payer MEDICARE, SELFPAY ==
[2025-06-25] VITALS (7 sets, daily range): BP systolic 107–173; BP diastolic 49–88
--- NOTE | 2025-06-25 18:33 | ED.GENMED ---
History of Present Illness
General
Chief Complaint: Fall
Source: patient
Exam Limitations: none
Time Seen by Provider: 06/25/25 18:27
History of Present Illness
History of Present Illness:
79-year-old male presents via EMS after a fall he sustained at home. Lives with his . Typically uses a walker he got stuck with a walker and fell. He states he landed on his tailbone. Notes lower back pain. No head strike. No thinners. He
does note a generalized weakness but no other complaints at this time
Past History
Past History
ED Past Medical History: HTN, Seizures, Other (Ataxia, Traumatic brain injury, Left hip dislocation), Other (phenytoin toxicity 2017, 2019) and Other (right humeral fracture, vitamin D deficiency)
ED Past Surgical History: Orthopedic (Left hip replacement, right partial hip replacement, right femur fracture) and Other (brain surgery, craniotomy with right-sided head plate)
Social History
Tobacco: Smoker
Alcohol: None
Drug: None
Personal:
Living: with family
Employment: Not employed
Family History
Family History: Other (reviewed and Noncontributory)
Phy Exam
Physical Exam
Physical Exam:
General: Unkempt male no acute respiratory distress soaked in foul-smelling urine
HEENT normocephalic no evidence of scalp abrasion or hematoma
Heart: Regular rate and rhythm
Lungs: CTA bilaterally
Abdomen is soft and nontender
Musculoskeletal exam: The patient is diffusely tender about the lumbar spine no deformities to the legs
Neurologic exam: Alert answering questions good muscle tone no unilateral deficit
Course
Orders/Labs/Results
Orders:
Orders
06/25/25 18:34
CR Lumbar Spine 2 Or 3 Views Urgent
Comment:
Reason For Exam: fall
Sacrum/Coccyx 2 View CR [CR Sacrum/coccyx Min 2 View] Urgent
Comment:
Reason For Exam: fall
06/25/25 21:00
Acetaminophen [Tylenol] 650 mg PO NOW STA
06/25/25 21:21
Complete Blood Count/With Diff Urgent
06/25/25 21:27
Comprehensive Metabolic Panel Urgent
06/25/25 21:30
CBC/With Diff [Complete Blood Count/With Diff] Urgent
06/25/25 22:00
Urinalysis Reflex To Culture Urgent
Date Specimen was Collected: 06/25/25
Time Specimen was Collected: 21:42
Urine Microscopic Reflex Cult Urgent
Urine Culture Urgent
JOVANNA Source: U
Specimen Description:
Date Specimen was Collected: 06/25/25
Time Specimen was Collected: 21:42
06/25/25 22:24
0.9% Sodium Chloride 1000 ml [Nss] 1,000 ml IV BOLUS
CefTRIAXone [Rocephin] 1,000 mg IV NOW STA
Abnormal Lab Results
06/25/25 06/25/25 06/25/25
21:27 21:30 22:00
WBC 11.1 H 10^3/uL
(4.8-10.8)
RBC 3.33 L 10^6/uL
(4.70-6.10)
Hgb 10.5 L g/dL
(13.0-18.0)
Hct 31.5 L %
(39.0-52.0)
MCV 94.6 H fL
(80.0-94.0)
MCH 31.5 H pg
(27.0-31.0)
MPV 10.9 H fL
(7.4-10.4)
Absolute Neuts (auto) 8.9 H 10^3/uL
(1.4-6.5)
Absolute Monos (auto) 0.8 H 10^3/uL
(0.1-0.6)
Neutrophils % 80.4 H %
(42.2-75.2)
Lymphocytes % 10.8 L %
(20.5-51.1)
BUN 26 H mg/dl
(9-20)
Creatinine 1.6 H mg/dL
(0.7-1.3)
Glucose 118 H mg/dl
(70-99)
AST 16 L U/L
(17-59)
Ur Occult Blood Reflex 3+ A
(Negative)
Leukocyte Esterase Rfl 3+ A
(Negative)
Urine RBC 3-6 A /HPF
(0-2)
Urine WBC (Reflex) 30-40 A /HPF
(0-5)
Urine Bacteria (Reflex) Many A
(Negative)
Urine Albumin (Reflex) 2+ A
(Neg - Trace)
06/25/25 21:30
06/25/25 21:27
Vital Signs
Initial and Last Documented VS:
Initial Vital Signs
Temp Pulse Resp BP Pulse Ox
98.7 F 81 20 107/49 97
06/25/25 18:39 06/25/25 18:39 06/25/25 18:39 06/25/25 18:39 06/25/25 18:39
Last Documented Vital Signs
Temp Pulse Resp BP Pulse Ox
98.7 F 83 14 129/60 97
06/25/25 18:39 06/25/25 19:15 06/25/25 19:15 06/25/25 19:15 06/25/25 18:39
MDM/Problems Addressed
Differential Diagnosis Includes:
Weakness, back pain and fall. Will obtain x-rays of the lumbar spine and coccyx. Will get labs and check urine given the quite foul-smelling urine
*Pulse Oximetry
Patient hypoxic: no
*Critical Care Note
Total Time (30-74mins, 75-104mins- exclusive of procedures): Not Applicable
Update Note
Update Note:
X-rays demonstrate new L2 compression fracture urinalysis consistent with UTI he has acute kidney injury as well with a creatinine of 1.6. We attempted to stand him up here however he was too weak and too much pain to go home safely. Will admit to
hospital for further hydration treatment of his UTI
ED Attending Note
-
Portions of this chart may have been created with voice recognition software.� Occasional wrong word or��sound alike� substitutions may have occurred due to the inherent limitations of voice recognition software.
Discharge Plan
Departure
Patient Disposition: Admit
Date of Disposition: 06/25/25
Time of Disposition: 22:30
Presentation/result/management discussed w/ accepting MD/DO: Hospitalist
Discharge Problem:
OTTONIEL (acute kidney injury), Acute UTI, Compression fracture
Prescriptions:
No Action
phenobarbital 32.4 mg Tablet
64.8 mg PO QPM
Patient Comments:
05/03/2024: last filled 01/02/24, 60 tabs for 30 days from [facility]#[id number]
levetiracetam [Keppra] 500 mg Tablet
500 mg PO QPM
levetiracetam 500 mg tablet
1,000 mg PO DAILY
nicotine 14 mg/24 hr Patch 24 Hour
14 mg transdermal DAILY Qty: 28 0RF
acetaminophen 325 mg Tablet
650 mg PO Q4HPRN PRN (Reason: mild pain/ELDER/temp> 100.4F) Qty: 30 0RF
Referrals:
UNKNOWN - PT DOES,NOT KNOW [Family Provider]
Interventions
Interventions:
*Risk Screen - Suicide Last Done: 06/25/25 18:39
*General Assessment Last Done: 06/25/25 18:39
*ED COVID-19 Vaccine History Last Done: 06/25/25 18:39
*ED Influenza Vaccine History Last Done: 06/25/25 18:39
ED-Musculoskeletal Assessment Last Done: 06/25/25 19:37
ED- Neurological Assessment Last Done: 06/25/25 19:37
ED-Skin Assessment Last Done: 06/25/25 19:37
Discharge Date and Time
Print Language: YORUBA
[2025-06-25] MEDS: TYLENOL 650 MG PO (21:25)
[2025-06-25 21:56] LABS: Hematocrit 31.5 % (39.0-52.0); Hemoglobin 10.5 g/dL (13.0-18.0); Mean Corp Hgb Conc. 33.3 g/dL (33.0-37.0); Mean Corpuscular Volume 94.6 fL (80.0-94.0); Nucleated Red Blood Cells % 0 % (-); Platelet Count 178 10^3/uL (130-400); Red Cell Dist. Width 13.0 % (11.5-14.5)
[2025-06-25 22:12] LABS: Urine Character Clear (Clear)
[2025-06-25 22:18] LABS: Urine White Cell 30-40 /HPF (0-5)
[2025-06-25 22:19] LABS: ALT (SGPT) 12 U/L (0-50); AST (SGOT) 16 U/L (17-59); Albumin 3.5 g/dl (3.5-5.0); Alkaline Phosphatase 73 U/L (38-126); Blood Urea Nitrogen 26 mg/dl (9-20); Calcium 8.4 mg/dl (8.4-10.2); Carbon Dioxide 27 mmol/L (22-30); Chloride 106 mmol/L (98-107); Glucose 118 mg/dl (70-99); Potassium 3.7 mmol/L (3.5-5.1); Sodium 135 mmol/L (135-145); Total Protein 6.3 g/dl (6.3-8.2); eGFR 43.56
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
[2025-06-25] MEDS: ROCEPHIN 1000 MG IV (23:16)
[2025-06-25] MEDS: NSS 1000 IV (23:16)
[2025-06-26] VITALS (8 sets, daily range): BP systolic 109–156; BP diastolic 52–96; BMI 21.3
[2025-06-26] MEDS: NSS 1000 IV ×2 (01:20→12:21)
[2025-06-26 06:15] LABS: Hematocrit 32.0 % (39.0-52.0); Hemoglobin 10.1 g/dL (13.0-18.0); Mean Corp Hgb Conc. 31.6 g/dL (33.0-37.0); Mean Corpuscular Volume 96.4 fL (80.0-94.0); Nucleated Red Blood Cells % 0 % (-); Platelet Count 174 10^3/uL (130-400); Red Cell Dist. Width 13.1 % (11.5-14.5)
[2025-06-26 06:40] LABS: ALT (SGPT) 11 U/L (0-50); AST (SGOT) 17 U/L (17-59); Albumin 3.2 g/dl (3.5-5.0); Alkaline Phosphatase 57 U/L (38-126); Blood Urea Nitrogen 23 mg/dl (9-20); Calcium 7.9 mg/dl (8.4-10.2); Carbon Dioxide 24 mmol/L (22-30); Chloride 112 mmol/L (98-107); Glucose 94 mg/dl (70-99); Potassium 4.1 mmol/L (3.5-5.1); Sodium 142 mmol/L (135-145); Total Protein 5.9 g/dl (6.3-8.2); eGFR 51.13
[2025-06-26] MEDS: LIDOCAINE 4% PATCH 1 PATCH TOPICAL (08:13)
[2025-06-26] MEDS: HEPARIN 5000 UNITS SC ×2 (08:13→20:22)
--- NOTE | 2025-06-26 10:02 | EDCM ---
CM reviewed chart and met with pt bedside in ED. Lives with his in 2 story home, 2 MONI
Independent in ADLs and personal care, ambulates with RW.
Confirms prescription coverage.
Hx [facility], hx [facility] and [facility] in past.
Per cell phone number in chart is not correct, her cell is [phone]
PCP: Gia Lara [facility]
Pharmacy: [facility]
I spoke with his to get name of PCP. She would like him to go to SNF for STR, informed her we are waiting for PT/OT recommendations.
CM will continue to follow for all discharge planning needs.
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
[2025-06-26] MEDS: TYLENOL 650 MG PO ×2 (12:21→23:11)
--- NOTE | 2025-06-26 12:48 | PTCARENOTE ---
Pt is alert and pleasant. Lying in bed watching TV. Bladder scan showed 484. Able to void in urinal after 250 mL. Denies pain at rest, but severe low back pain w/ movement - tylenol given. Report sent to floor - will transfer to 2136.
[2025-06-26] MEDS: STERILE WATER FOR INJECTION 10 ML IV (21:04)
[2025-06-26] MEDS: ROCEPHIN 1000 MG IV (21:04)
[2025-06-27] MEDS: NSS 1000 IV ×2 (00:48→11:42)
[2025-06-27] MEDS: ROXICODONE 5 MG PO (01:53)
[2025-06-27] MEDS: KEPPRA 500 MG PO ×2 (01:54→18:38)
[2025-06-27] MEDS: LUMINAL 64.8 MG PO ×2 (01:54→18:37)
[2025-06-27] MEDS: LIDOCAINE URO-JET 2% 1 SYRINGE TOPICAL (02:40)
--- NOTE | 2025-06-27 03:25 | PTCARENOTE ---
Per Bladder Scan & Straight Cath Protocol patient bladder scanned for 414mL at 2340. Straight cath attempted by this RN without success-pt tolerated well. Additional attempt made also w/o success, pt endorsed pain and discomfort during procedure.
Provider notified-new orders added; See MAR. Urojet applied-following attempt successful for 350 mL. Patient now resting comfortably in bed, denies pain, abd fullness or discomfort. IVF maintained @ 85 ml/hr. Pt has no further concerns at this time.
[2025-06-27 06:23] LABS: Hematocrit 26.9 % (39.0-52.0); Hemoglobin 8.9 g/dL (13.0-18.0); Mean Corp Hgb Conc. 33.1 g/dL (33.0-37.0); Mean Corpuscular Volume 91.8 fL (80.0-94.0); Nucleated Red Blood Cells % 0 % (-); Platelet Count 180 10^3/uL (130-400); Red Cell Dist. Width 13.1 % (11.5-14.5)
[2025-06-27 06:51] LABS: Blood Urea Nitrogen 17 mg/dl (9-20); Calcium 8.0 mg/dl (8.4-10.2); Carbon Dioxide 21 mmol/L (22-30); Chloride 114 mmol/L (98-107); Estimated Creatinine Clearance 42 ml/min; Glucose 83 mg/dl (70-99); Potassium 3.7 mmol/L (3.5-5.1); Sodium 137 mmol/L (135-145); eGFR > 60.00
[2025-06-27 07:52] VITALS: BP 142/55
[2025-06-27] MEDS: TYLENOL 650 MG PO (09:06)
[2025-06-27] MEDS: KEPPRA 1000 MG PO (09:06)
[2025-06-27] MEDS: HEPARIN 5000 UNITS SC ×2 (09:07→20:28)
[2025-06-27] MEDS: LIDOCAINE 4% PATCH 1 PATCH TOPICAL (09:07)
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
--- NOTE | 2025-06-27 12:05 | PN.CDI ---
CDI
- -
CDI:
Physician Documentation Request
Admit Date: 06/25/25 23:21
Dear Doctor Kaia,
Clinical Indicators:
Patient admitted with ambulatory dysfunction/fall with L2 compression fracture.
06/25 H & P, 'He tripped while you are using his walker. He landed on his butt.'
06/25 X [facility]AY Report, 'SEVERE OSTEOPOROSIS with OSTEOPOROTIC INSUFFICIENCY FRACTURES of all the lumbar and lower thoracic vertebral bodies (T10-L5) - including a new fracture of the superior endplate of L2.'
Please clarify the etiology of the L2 compression fracture:
Multifactorial, due to fall and osteoporosis
Due to fall only
Other,please specify
Use of terms such as suspected, likely, concern for, or probable (associated with a specific diagnosis that is being evaluated, monitored, or treated as if it exists) are acceptable and can be coded in the inpatient setting, when documented at the
time of discharge.
Thank you,
LATONYA Nice RN
CDI Specialist
available via tiger text
Please use your independent medical judgment in providing your response.
--- NOTE | 2025-06-27 13:45 | CM ---
patient seen at bedside
PT/OT ordered
PT eval-await
called - prefer [facility] SNF, Mess[facility] referrals placed
will need auth once bed secured
PLAN: Anticipate SNF, pending bed availability
[2025-06-27 13:59] VITALS: BP 120/64; PULSE 75
[2025-06-27] MEDS: FLOMAX 0.4 MG PO (14:01)
[2025-06-27] MEDS: SENOKOT 8.6 MG PO ×2 (14:01→20:28)
[2025-06-27] MEDS: MIRALAX 17 GRAMS PO (14:02)
[2025-06-27 15:20] VITALS: BP 127/68
--- NOTE | 2025-06-27 20:00 | PTCARENOTE ---
Late entry, 06/27/25 @ 1999 Lidocaine was patch removed
[2025-06-27] MEDS: DILAUDID 0.25 MG IV (22:39)
[2025-06-27 22:59] VITALS: BP 135/62
[2025-06-28] MEDS: ROXICODONE 5 MG PO ×3 (01:21→20:06)
[2025-06-28 07:12] VITALS: BP 124/64
[2025-06-28 07:42] LABS: Hematocrit 28.4 % (39.0-52.0); Hemoglobin 9.4 g/dL (13.0-18.0); Mean Corp Hgb Conc. 33.1 g/dL (33.0-37.0); Mean Corpuscular Volume 91.0 fL (80.0-94.0); Nucleated Red Blood Cells % 0 % (-); Platelet Count 193 10^3/uL (130-400); Red Cell Dist. Width 12.9 % (11.5-14.5)
[2025-06-28] MEDS: KEPPRA 1000 MG PO (08:18)
[2025-06-28] MEDS: LIDOCAINE 4% PATCH 1 PATCH TOPICAL (08:18)
[2025-06-28] MEDS: MIRALAX 17 GRAMS PO (08:18)
[2025-06-28] MEDS: FLOMAX 0.4 MG PO (08:18)
[2025-06-28] MEDS: HEPARIN 5000 UNITS SC ×2 (08:19→20:05)
[2025-06-28] MEDS: SENOKOT 8.6 MG PO ×2 (08:19→20:06)
[2025-06-28] MEDS: TYLENOL 650 MG PO (08:25)
[2025-06-28 08:56] LABS: Blood Urea Nitrogen 14 mg/dl (9-20); Calcium 8.3 mg/dl (8.4-10.2); Carbon Dioxide 22 mmol/L (22-30); Chloride 111 mmol/L (98-107); Estimated Creatinine Clearance 42 ml/min; Glucose 93 mg/dl (70-99); Potassium 3.7 mmol/L (3.5-5.1); Sodium 136 mmol/L (135-145); eGFR > 60.00
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
[2025-06-28 11:56] VITALS: BP 117/63; PULSE 85
[2025-06-28 12:03] VITALS: BP 117/63; PULSE 85
[2025-06-28 15:39] VITALS: BP 120/60
[2025-06-28] MEDS: KEPPRA 500 MG PO (17:18)
[2025-06-28] MEDS: LUMINAL 64.8 MG PO (17:18)
[2025-06-28] MEDS: REMOVE LIDOCAINE PATCH 1 PATCH REMOVE (22:44)
[2025-06-28 23:37] VITALS: BP 139/64
[2025-06-29 08:15] VITALS: BP 123/67
[2025-06-29] MEDS: SENOKOT 8.6 MG PO ×2 (10:17→21:52)
[2025-06-29] MEDS: HEPARIN 5000 UNITS SC ×2 (10:17→21:52)
[2025-06-29] MEDS: MIRALAX 17 GRAMS PO (10:17)
[2025-06-29] MEDS: FLOMAX 0.4 MG PO (10:18)
[2025-06-29] MEDS: LIDOCAINE 4% PATCH 1 PATCH TOPICAL (10:18)
[2025-06-29] MEDS: KEPPRA 1000 MG PO (10:26)
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
[2025-06-29 15:43] VITALS: BP 126/69
[2025-06-29] MEDS: KEPPRA 500 MG PO (17:31)
[2025-06-29] MEDS: LUMINAL 64.8 MG PO (17:43)
[2025-06-29] MEDS: REMOVE LIDOCAINE PATCH 1 PATCH REMOVE (21:51)
[2025-06-29 23:00] VITALS: BP 97/63
[2025-06-30 07:45] VITALS: BP 138/63
[2025-06-30] MEDS: LIDOCAINE 4% PATCH 1 PATCH TOPICAL (09:31)
[2025-06-30] MEDS: MIRALAX 17 GRAMS PO (09:32)
[2025-06-30] MEDS: HEPARIN 5000 UNITS SC ×2 (09:32→20:45)
[2025-06-30] MEDS: FLOMAX 0.4 MG PO (09:33)
[2025-06-30] MEDS: NICODERM TRANSDERMAL 14 MG TRANSDERM (09:33)
[2025-06-30] MEDS: KEPPRA 1000 MG PO (09:33)
[2025-06-30] MEDS: SENOKOT 8.6 MG PO ×2 (09:34→20:46)
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
[2025-06-30] MEDS: ROXICODONE 5 MG PO (12:13)
[2025-06-30 15:38] VITALS: BP 109/68
--- NOTE | 2025-06-30 16:18 | CM ---
CM reviewed pt with attending- will plan for dc tomorrow to SNF
Call with spouse perpt request- [facility] has offered and she is in agreement
SNF auth initiated on [employer] and clinicals faxed
Pending auth#- [id number]
Discharge Disposition- [facility] pending [employer] auth
[2025-06-30] MEDS: KEPPRA 500 MG PO (17:31)
[2025-06-30] MEDS: LUMINAL 64.8 MG PO (17:31)
[2025-06-30] MEDS: DILAUDID 0.25 MG IV (20:26)
[2025-06-30] MEDS: REMOVE LIDOCAINE PATCH 1 PATCH REMOVE (20:46)
[2025-06-30 23:23] VITALS: BP 143/68
[2025-07-01 07:31] LABS: Hematocrit 32.5 % (39.0-52.0); Hemoglobin 10.8 g/dL (13.0-18.0); Mean Corp Hgb Conc. 33.2 g/dL (33.0-37.0); Mean Corpuscular Volume 94.2 fL (80.0-94.0); Platelet Count 271 10^3/uL (130-400); Red Cell Dist. Width 13.1 % (11.5-14.5)
[2025-07-01 07:37] VITALS: BP 130/71
[2025-07-01 07:40] LABS: Blood Urea Nitrogen 17 mg/dl (9-20); Calcium 9.1 mg/dl (8.4-10.2); Carbon Dioxide 29 mmol/L (22-30); Chloride 104 mmol/L (98-107); Estimated Creatinine Clearance 39 ml/min; Glucose 89 mg/dl (70-99); Potassium 4.3 mmol/L (3.5-5.1); Sodium 135 mmol/L (135-145); eGFR > 60.00
[2025-07-01] MEDS: LIDOCAINE 4% PATCH 1 PATCH TOPICAL (08:49)
[2025-07-01] MEDS: FLOMAX 0.4 MG PO (08:49)
[2025-07-01] MEDS: KEPPRA 1000 MG PO (08:49)
[2025-07-01] MEDS: HEPARIN 5000 UNITS SC (08:49)
[2025-07-01] MEDS: MIRALAX 17 GRAMS PO (08:50)
[2025-07-01] MEDS: NICODERM TRANSDERMAL 14 MG TRANSDERM (08:50)
[2025-07-01] MEDS: SENOKOT 8.6 MG PO (08:50)
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
--- NOTE | 2025-07-01 10:40 | W.DCSUMMARY ---
Discharge Summary
Discharge Data
Date of Admission: 06/25/25
Date of Discharge: 07/01/25
Total time spent discharging patient (in min): 40
-
Pending Results: No
Hospital Course
Principal Diagnosis:
Fall with L2 compression fracture / Osteoporotic insufficiency fractures of the lumbar lower thoracic vertebra T10-L5.
OTTONIEL, resolved
Acute urinary retention, likely multifactorial due to decreased mobility, BPH, and constipation.
Chronic Diagnoses:�
Chronic anemia. Hemoglobin stable at 10.8 on day of discharge
Seizure disorder, continue Keppra and phenobarbital
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
History of traumatic brain injury status post plate placement
History abdominal aortic aneurysm
Chronic kidney disease
Tobacco use disorder
History of bilateral hip replacement
Consultations:�
None
Procedures:�
None
Clinical course:�
This is a 79 year old male with past medical history as stated above, who presented with fall at home while using his walker.
Problem 1:
Fall / L2 compression fracture / Osteoporotic insufficiency fractures of the lumbar lower thoracic vertebra T10-L5.
He can continue with Tylenol, Lidoderm patch and oxycodone as needed for pain control.
He can continue bowel regimen with MiraLAX and Senokot while on opiate. He was discharged to SNF per PT OT recommendation
He was discharged to SNF per PT OT recommendation.
Problem 2:
OTTONIEL.
Serum creatinine improved from 1.6 to 1.2 on the day of discharge.
Problem 3:
Acute urinary retention, likely multifactorial due to decreased mobility, BPH, and constipation.
He was started with Flomax while in the hospital which he can continue going forward.
Menjivar catheter was placed on admission and removed the day prior to discharge.
The patient appeared to have passed voiding trial, however he has been informed to continue bladder scan at SNF.
As for the rest of his medical problems, they were stable during his hospital stay.
Discharge Plan
-
Patient Disposition: Custodial/SNF
Discharge Diagnosis/Procedures: Fall with L2 compression fracture;
Osteoporotic insufficiency fractures of the lumbar lower thoracic vertebra T10-L5;
Improved kidney injury;
Acute urinary retention likely multifactorial due to decreased mobility, BPH, and constipation (passed voiding trial prior to discharge)
Condition: Fair
Diet: As tolerated
Activity: As tolerated
Driving Restrictions: As prior to admission
Activity Restrictions/Additional Instructions:
Continue bladder scan at rehab (to assess for urinary retention)
Referrals:
UNKNOWN - PT DOES,NOT KNOW [Family Provider] - in less than 1 week
Additional Discharge Medication Instructions: You were started with standing doses of bowel regimen. Hold them if you start to experience diarrhea
Continue Flomax to help with urinary retention
Prescriptions:
New
tamsulosin 0.4 mg Capsule
0.4 mg PO DAILY Qty: 30 0RF
polyethylene glycol 3350 17 gram Powder In Packet
17 g PO DAILY Qty: 30 0RF
Rx Instructions:
hold for diarrhea
sennosides [Starr-ricki] 8.6 mg Tablet
8.6 mg PO BID Qty: 60 0RF
Rx Instructions:
hold for diarrhea
lidocaine 4 % Adhesive Patch,Medicated
1 patch topical DAILY Qty: 30 0RF
Rx Instructions:
lower back
oxycodone 5 mg Tablet
5 mg PO Q4HPRN PRN (Reason: moderate pain) Qty: 5 0RF
Continued
phenobarbital 32.4 mg Tablet
64.8 mg PO QPM
Patient Comments:
05/03/2024: last filled 01/02/24, 60 tabs for 30 days from [facility]#[id number]
levetiracetam [Keppra] 500 mg Tablet
500 mg PO QPM
levetiracetam 500 mg tablet
1,000 mg PO DAILY
nicotine 14 mg/24 hr Patch 24 Hour
14 mg transdermal DAILY Qty: 28 0RF
acetaminophen 325 mg Tablet
650 mg PO Q4HPRN PRN (Reason: mild pain/ELDER/temp> 100.4F) Qty: 30 0RF
Discharge Orders:
Discharge Patient (As Directed); Ordered 07/01/25
Ordered By: Christy Viveros
Discharge Date and Time
Print Language: ALBANIAN
[2025-07-01] MEDS: FLUZONE HIGH-DOSE 2025-26 0.5 ML IM (10:42)
--- NOTE | 2025-07-01 11:29 | CM ---
Addendum entered by Opal [place] 07/01/25 11:33:
1530 pickup- SNF aware
Original Note:
CM reviewed pt with attending and pt remains ready for dc
[employer] auth approval received
Bedside visit with pt- he remains in agreement plan to [facility]
Call to spouse with update-IMM verbally reviewed with spouse
Copy left with pt's belongings
Spouse complimentary of care received at [facility]
Transport forms completed and on chart- to arrange for BLS
SNF auth# [id number] days 07/01-07/07
Discharge Disposition- [facility] via BLS
Phone- [phone] 2nd floor Fax- [phone]
--- NOTE | 2025-07-01 12:08 | PTCARENOTE ---
attempted to give report to josé luis cavanaugh. no answer. will try later.
[2025-07-01] MEDS: ROXICODONE 5 MG PO (13:13)
--- NOTE | 2025-07-01 13:47 | PTCARENOTE ---
report given to pal YEE
[2025-07-01 15:56] VITALS: BP 126/58
== END 2025-07-01 16:04 | DRG 543 ==
LOC: 2 NORTH 23:21
PROVIDERS: Hospitalist; Physician Assistant; ADMITTING PHYSICIAN Hospitalist; ATTENDING PHYSICIAN Internal Medicine; EMERGENCY PHYSICIAN Emergency Medicine
PROC: 3E02340 Introduction of Influenza Vaccine into Muscle, Percutaneous Approach (ICD-10-PCS; 2025-07-01)
DX: M80.08XA Age-related osteoporosis with current pathological fracture, vertebra(e), initial encounter for fracture (principal); N17.9 Acute kidney failure, unspecified; F17.210 Nicotine dependence, cigarettes, uncomplicated; N18.2 Chronic kidney disease, stage 2 (mild); I12.9 Hypertensive chronic kidney disease with stage 1 through stage 4 chronic kidney disease, or unspecified chronic kidney disease; D64.9 Anemia, unspecified; I71.40 Abdominal aortic aneurysm, without rupture, unspecified; G40.909 Epilepsy, unspecified, not intractable, without status epilepticus; Z66 Do not resuscitate; Z23 Encounter for immunization
CPT/HCPCS: 72100; 72220; 80048; 80053; 81003; 81015; 85025; 85027; 87070; 87086; 90662; 97116; 97163; 97167; 97530; 97535; 99406; G0008

== ENCOUNTER → 2025-07-04 09:17 | Outpatient (REF) | payer MEDICARE, SELFPAY ==
[2025-07-04 11:50] LABS: Hematocrit 33.2 % (39.0-52.0); Hemoglobin 10.4 g/dL (13.0-18.0); Mean Corp Hgb Conc. 31.3 g/dL (33.0-37.0); Mean Corpuscular Volume 96.2 fL (80.0-94.0); Platelet Count 266 10^3/uL (130-400); Red Cell Dist. Width 13.9 % (11.5-14.5)
[2025-07-04 12:12] LABS: Blood Urea Nitrogen 25 mg/dl (9-20); Calcium 8.7 mg/dl (8.4-10.2); Carbon Dioxide 27 mmol/L (22-30); Chloride 103 mmol/L (98-107); Glucose 101 mg/dl (70-99); Potassium 4.3 mmol/L (3.5-5.1); Sodium 138 mmol/L (135-145); eGFR 47.06
== END ==
LOC: OLABP 09:17
PROVIDERS: ATTENDING PHYSICIAN Family Medicine
DX: S32.020D Wedge compression fracture of second lumbar vertebra, subsequent encounter for fracture with routine healing (principal); G40.909 Epilepsy, unspecified, not intractable, without status epilepticus; I10 Essential (primary) hypertension
CPT/HCPCS: 36415; 80048; 85027

== ENCOUNTER → 2025-07-07 11:03 | Outpatient (REF) | payer MEDICARE, SELFPAY ==
[2025-07-07 12:03] LABS: Hematocrit 34.8 % (39.0-52.0); Hemoglobin 11.0 g/dL (13.0-18.0); Mean Corp Hgb Conc. 31.6 g/dL (33.0-37.0); Mean Corpuscular Volume 95.3 fL (80.0-94.0); Nucleated Red Blood Cells % 0 % (-); Platelet Count 234 10^3/uL (130-400); Red Cell Dist. Width 14.1 % (11.5-14.5)
[2025-07-07 12:05] LABS: ALT (SGPT) 20 U/L (0-50); AST (SGOT) 18 U/L (17-59); Albumin 3.9 g/dl (3.5-5.0); Alkaline Phosphatase 126 U/L (38-126); Blood Urea Nitrogen 35 mg/dl (9-20); Calcium 8.3 mg/dl (8.4-10.2); Carbon Dioxide 27 mmol/L (22-30); Chloride 101 mmol/L (98-107); Glucose 97 mg/dl (70-99); Potassium 4.8 mmol/L (3.5-5.1); Sodium 133 mmol/L (135-145); Total Protein 6.8 g/dl (6.3-8.2); eGFR 55.88
[2025-07-08 15:53] LABS: Urine Character Clear (Clear)
[2025-07-08 16:12] LABS: Urine Squamous Cell 0-2 /LPF (Few)
[2025-07-08 16:13] LABS: Urine Red Blood Cell 21-25 /HPF (0-2)
== END ==
LOC: OLABP 11:03
PROVIDERS: ATTENDING PHYSICIAN Family Medicine
DX: I10 Essential (primary) hypertension (principal); G40.909 Epilepsy, unspecified, not intractable, without status epilepticus; S32.020D Wedge compression fracture of second lumbar vertebra, subsequent encounter for fracture with routine healing
CPT/HCPCS: 36415; 80053; 81003; 81015; 85025; 87086; 87147

== ENCOUNTER → 2025-07-08 08:56 | Outpatient (REF) | payer MEDICARE, SELFPAY | LOC: RST 08:56 | PROVIDERS: ATTENDING PHYSICIAN Family Medicine | DX: R13.10 Dysphagia, unspecified (principal) | CPT/HCPCS: 74230; 92611 ==

== ENCOUNTER 2025-07-08 19:01 | Inpatient (IN) | payer MEDICARE, SELFPAY ==
[2025-07-08] VITALS (25 sets, daily range): BP systolic 98–144; BP diastolic 20–113; BMI 22.0; BMI 20.6
--- NOTE | 2025-07-08 16:13 | ED.GENMED ---
History of Present Illness
<Aleks Esparza PA-C - Last Filed: 07/08/25 23:26>
General
Chief Complaint: Swallowing Problem
Source: patient, records and ambulance crew
Time Seen by Provider: 07/08/25 16:05
History of Present Illness
History of Present Illness:
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
paralysis, previous TBI, AAA presenting to the ER from [facility] for evaluation after he had a failed swallowing study earlier today and reportedly needs a feeding tube. [facility] will not accept patient back to the facility until feeding
tube is placed. Patient is without any current concerns. He is denying any pain, shortness of breath, nausea or vomiting, fevers or infectious symptoms or any other concerns.
Past History
<Aleks Esparza PA-C - Last Filed: 07/08/25 23:26>
Past History
ED Past Medical History: HTN, Renal failure, Seizures, Other (Ataxia, Traumatic brain injury, Left hip dislocation), Other (phenytoin toxicity 2017, 2019) and Other (right humeral fracture, vitamin D deficiency)
ED Past Surgical History: Orthopedic (Left hip replacement, right partial hip replacement, right femur fracture) and Other (brain surgery, craniotomy with right-sided head plate)
Social History
Tobacco: Former smoker
Alcohol: None
Drug: None
Personal:
Living: with family
Employment: Not employed
Family History
Family History: Other (reviewed and Noncontributory)
Review of Systems
<Aleks Esparza PA-C - Last Filed: 07/08/25 23:26>
Review of Systems
All Other Systems: ROS reviewed and negative except as documented in HPI and ROS
Phy Exam
<Aleks Esparza PA-C - Last Filed: 07/08/25 23:26>
Physical Exam
Physical Exam:
GENERAL: Alert , in no apparent distress, appears older than stated age he is
HEAD: Normocephalic atraumatic
EYE: conjunctiva clear, right eye proptosis
NECK: Supple
ENT: o/p clr, dry mucous membranes
CARDIAC: Regular rate and rhythm
LUNGS: Clear breath sounds bilaterally, no acute respiratory distress, no wheezes/rales/rhonchi
NEUROLOGICAL: Alert and oriented x 3, dysarthric which patient states is normal
SKIN: Warm and dry, skin intact.
MUSCULOSKELETAL: well perfused.
PSYCH: Normal and appropriate interaction.
Scores
<Aleks Esparza PA-C - Last Filed: 07/08/25 23:26>
Heart Failure Risk
Heart Failure Risk Score: Not Applicable
Heart Score for Chest Pain Patients
STEMI patient?: Not applicable
Withdrawal Assessment of Alcohol
Withdrawal Assessment Completed?: Not applicable
Course
<DOMINICK Graves Last Filed: 07/08/25 23:26>
Orders/Labs/Results
Orders:
Orders
07/08/25 Dinner
NPO
Allow oral meds: Yes
Allow clear liquids: Sips of Clears
07/08/25 15:39
Chest [CR Chest - 2 Views ] Urgent
Comment:
Reason For Exam: failed video swallow today
07/08/25 16:13
Electrocardiogram (*1) Urgent
Reason for Study: PreOp
EKG- Treatment ONCE
07/08/25 16:25
0.9% Sodium Chloride 500 ml [Nss] 500 ml IV BOLUS
07/08/25 17:20
Type+Screen Urgent
Complete Blood Count/With Diff Urgent
Comprehensive Metabolic Panel Urgent
PTT Urgent
Prothrombin Time Urgent
07/08/25 18:34
Admit/Transfer Patient As Directed
Co-Sign Provider:
Level of Care: Inpatient admission
Assign to:: Medical/Surgical
Physician / Group: conchita
Diagnosis: dyspahgia
Reason for Hospitalization: dysphagia
Expected length of stay greater than two midnights?: Yes
ELOS- Estimated Length of Stay in days: 2
I certify the patient meets the requirements for IP care: Yes
07/08/25 18:35
Code Status As Directed
Resuscitation Status: Full Code
PRN Pain Medication Management As Directed
May give lesser potent ordered pain med per pt: Yes
preference::
Protocol:: Medication orders for pain may be administered in a
manner that supports deferring to patient preference
when the pt is:
- Requesting an ordered lesser potent pain medication.
Least to most potent pain medications are defined
as: acetaminophen < NSAID < tramadol < opioids
(morphine, oxycodone, hydromorphone).
- Requesting a lesser dose of the same medication IF
ORDERED.
- Requesting a less intrusive route of administration
if both routes are prescribed by the provider (PO <
IV).
07/08/25 21:07
Acetaminophen [Tylenol] 650 mg PO Q4HPRN PRN mild pain/ELDER/temp> 100.4F
Oxycodone [Roxicodone] 5 mg PO Q4HPRN PRN moderate pain
07/08/25 21:07
Activity As Directed
Activity Level: As Tolerated
Pneumatic Compression Sleeves As Directed
Type: Knee high
Vital Signs As Directed
Frequency: Per unit guidelines
Speech Therapy Eval & Treat Routine
DX Deep Vein Thrombosis Video Routine
07/09/25 06:00
Complete Blood Count/With Diff IN AM
Comprehensive Metabolic Panel IN AM
07/09/25 08:00
Levetiracetam [Keppra] 1,000 mg PO DAILY
Nicotine [Nicoderm Transdermal] 14 mg TRANSDERM DAILY
Tamsulosin [Flomax] 0.4 mg PO DAILY
07/09/25 18:00
Levetiracetam [Keppra] 500 mg PO QPM
Phenobarbital [Luminal] 64.8 mg PO QPM
Abnormal Lab Results
07/08/25
17:20
RBC 3.43 L 10^6/uL
(4.70-6.10)
Hgb 10.8 L g/dL
(13.0-18.0)
Hct 32.3 L %
(39.0-52.0)
MCV 94.2 H fL
(80.0-94.0)
MCH 31.5 H pg
(27.0-31.0)
MPV 10.5 H fL
(7.4-10.4)
Abs Immat Gran (auto) 0.1 H 10^3/uL
(0-0.05)
Absolute Neuts (auto) 7.9 H 10^3/uL
(1.4-6.5)
Absolute Monos (auto) 0.8 H 10^3/uL
(0.1-0.6)
Immature Gran % 0.6 H %
(0-0.5)
Neutrophils % 75.7 H %
(42.2-75.2)
Lymphocytes % 15.8 L %
(20.5-51.1)
BUN 35 H mg/dl
(9-20)
Glucose 115 H mg/dl
(70-99)
Calcium 8.2 L mg/dl
(8.4-10.2)
Total Bilirubin < 0.1 L mg/dl
(0.2-1.3)
07/08/25 17:20
07/08/25 17:20
Vital Signs
Initial and Last Documented VS:
Initial Vital Signs
Pulse Resp
87 11
07/08/25 15:26 07/08/25 15:26
Last Documented Vital Signs
Temp Pulse Resp BP Pulse Ox
98.1 F 85 18 129/67 94
07/08/25 21:09 07/08/25 21:09 07/08/25 21:09 07/08/25 21:09 07/08/25 21:09
<Hiro Alejandre, DO - Last Filed: 07/08/25 17:24>
Orders/Labs/Results
Orders:
Orders
07/08/25 Dinner
NPO
Allow oral meds: Yes
Allow clear liquids: Sips of Clears
07/08/25 15:39
Chest [CR Chest - 2 Views ] Urgent
Comment:
Reason For Exam: failed video swallow today
07/08/25 16:13
Electrocardiogram (*1) Urgent
Reason for Study: PreOp
EKG- Treatment ONCE
07/08/25 16:25
0.9% Sodium Chloride 500 ml [Nss] 500 ml IV BOLUS
07/08/25 17:20
Type+Screen Urgent
Complete Blood Count/With Diff Urgent
Comprehensive Metabolic Panel Urgent
PTT Urgent
Prothrombin Time Urgent
07/08/25 18:34
Admit/Transfer Patient As Directed
Co-Sign Provider:
Level of Care: Inpatient admission
Assign to:: Medical/Surgical
Physician / Group: conchita
Diagnosis: dyspahgia
Reason for Hospitalization: dysphagia
Expected length of stay greater than two midnights?: Yes
ELOS- Estimated Length of Stay in days: 2
I certify the patient meets the requirements for IP care: Yes
07/08/25 18:35
Code Status As Directed
Resuscitation Status: Full Code
PRN Pain Medication Management As Directed
May give lesser potent ordered pain med per pt: Yes
preference::
Protocol:: Medication orders for pain may be administered in a
manner that supports deferring to patient preference
when the pt is:
- Requesting an ordered lesser potent pain medication.
Least to most potent pain medications are defined
as: acetaminophen < NSAID < tramadol < opioids
(morphine, oxycodone, hydromorphone).
- Requesting a lesser dose of the same medication IF
ORDERED.
- Requesting a less intrusive route of administration
if both routes are prescribed by the provider (PO <
IV).
07/08/25 21:07
Acetaminophen [Tylenol] 650 mg PO Q4HPRN PRN mild pain/ELDER/temp> 100.4F
Oxycodone [Roxicodone] 5 mg PO Q4HPRN PRN moderate pain
07/08/25 21:07
Activity As Directed
Activity Level: As Tolerated
Pneumatic Compression Sleeves As Directed
Type: Knee high
Vital Signs As Directed
Frequency: Per unit guidelines
Speech Therapy Eval & Treat Routine
DX Deep Vein Thrombosis Video Routine
07/09/25 06:00
Complete Blood Count/With Diff IN AM
Comprehensive Metabolic Panel IN AM
07/09/25 08:00
Levetiracetam [Keppra] 1,000 mg PO DAILY
Nicotine [Nicoderm Transdermal] 14 mg TRANSDERM DAILY
Tamsulosin [Flomax] 0.4 mg PO DAILY
07/09/25 18:00
Levetiracetam [Keppra] 500 mg PO QPM
Phenobarbital [Luminal] 64.8 mg PO QPM
Abnormal Lab Results
07/08/25
17:20
RBC 3.43 L 10^6/uL
(4.70-6.10)
Hgb 10.8 L g/dL
(13.0-18.0)
Hct 32.3 L %
(39.0-52.0)
MCV 94.2 H fL
(80.0-94.0)
MCH 31.5 H pg
(27.0-31.0)
MPV 10.5 H fL
(7.4-10.4)
Abs Immat Gran (auto) 0.1 H 10^3/uL
(0-0.05)
Absolute Neuts (auto) 7.9 H 10^3/uL
(1.4-6.5)
Absolute Monos (auto) 0.8 H 10^3/uL
(0.1-0.6)
Immature Gran % 0.6 H %
(0-0.5)
Neutrophils % 75.7 H %
(42.2-75.2)
Lymphocytes % 15.8 L %
(20.5-51.1)
BUN 35 H mg/dl
(9-20)
Glucose 115 H mg/dl
(70-99)
Calcium 8.2 L mg/dl
(8.4-10.2)
Total Bilirubin < 0.1 L mg/dl
(0.2-1.3)
07/08/25 17:20
07/08/25 17:20
Vital Signs
Initial and Last Documented VS:
Initial Vital Signs
Pulse Resp
87 11
07/08/25 15:26 07/08/25 15:26
Last Documented Vital Signs
Temp Pulse Resp BP Pulse Ox
98.1 F 85 18 129/67 94
07/08/25 21:09 07/08/25 21:09 07/08/25 21:09 07/08/25 21:09 07/08/25 21:09
<Aleks Esparza PA-C - Last Filed: 07/08/25 23:26>
MDM/Problems Addressed
Differential Diagnosis Includes:
Dehydration
OTTONIEL
Electrolyte Imbalance
Malignancy
CVA
Dysphagia
MDM/Problems Addressed:
79-year-old male presenting to the ER for evaluation after he had a failed swallowing study earlier today with [facility] requesting patient have a feeding tube placed prior to him being able to come back to their facility. Patient is in no acute
distress and without any specific concerns at this time. Will check labs and preoperative studies. Will discuss with hospitalist team with plan to consult with GI as well as either general surgery or IR for PEG tube placement
Chronic conditions affecting care: Neurological disorder
<Aleks Esparza PA-C - Last Filed: 07/08/25 23:26>
*Radiology
Radiology exam reviewed: radiology read reviewed
*Pulse Oximetry
SaO2: 95
Oxygen Mode of Delivery: Room air
Patient hypoxic: no
*Critical Care Note
Total Time (30-74mins, 75-104mins- exclusive of procedures): Not Applicable
Data Reviewed
Review of Other/Old Records Reveals: Labs, Records and Discharge Summary
Source: patient, records and physician
<Aleks Esparza PA-C - Last Filed: 07/08/25 23:26>
Patient Management
Discussion with other providers: Hospitalist
Escalation/DeEscalation of care consider admission/obs:
Hospitalist team is aware and accepts for continued evaluation and treatment
ED Attending Note
<DOMINICK Graves Last Filed: 07/08/25 23:26>
-
Portions of this chart may have been created with voice recognition software.� Occasional wrong word or��sound alike� substitutions may have occurred due to the inherent limitations of voice recognition software.
<Hiro Alejandre, DO - Last Filed: 07/08/25 17:24>
ED Attending Note
Patient seen and examined by attending physician: Yes
I performed the substantive portion of visit, reviewed & personally made and approve the management plan that is documented in note by myself or SHAKA.: Yes
ED Attending Note:
I evaluated patient at bedside. The patient appears dehydrated markedly dry oral mucosa, sunken eyes, IV fluids were given.
Discharge Plan
Departure
Patient Disposition: Admit
Date of Disposition: 07/08/25
Time of Disposition: 18:08
Presentation/result/management discussed w/ accepting MD/DO: Hospitalist
Discharge Problem:
Dysphagia
Interventions
Interventions:
*Risk Screen - Suicide Last Done: 07/08/25 15:36
*General Assessment Last Done: 07/08/25 15:27
*Neglect/Abuse Screening Last Done: 07/08/25 15:27
*ED- Fall Risk Assessment Last Done: 07/08/25 20:50
*ED COVID-19 Vaccine History Last Done: 07/08/25 15:36
*ED Influenza Vaccine History Last Done: 07/08/25 15:36
*Nursing Disposition Last Done: 07/08/25 20:50
ED-EENT Assessment Last Done: 07/08/25 19:41
AC-Ftpgas-Rxxhnrdfmn Assessment Last Done: 07/08/25 18:59
ED- Pulmonary Assessment Last Done: 07/08/25 18:59
ED- Neurological Assessment Last Done: 07/08/25 18:59
ED Swallowing Screen Last Done: 07/08/25 19:05
Discharge Date and Time
Discharge Date/Time: 07/08/25 20:53
[2025-07-08] MEDS: NSS 500 IV (17:17)
[2025-07-08 17:30] LABS: Hematocrit 32.3 % (39.0-52.0); Hemoglobin 10.8 g/dL (13.0-18.0); Mean Corp Hgb Conc. 33.4 g/dL (33.0-37.0); Mean Corpuscular Volume 94.2 fL (80.0-94.0); Nucleated Red Blood Cells % 0 % (-); Platelet Count 258 10^3/uL (130-400); Red Cell Dist. Width 13.5 % (11.5-14.5)
[2025-07-08 17:39] LABS: INR 1.01; PT 13.6 Sec (11.4-14.6)
[2025-07-08 17:40] LABS: APTT 34.0 Sec (23.4-35.0)
[2025-07-08 17:43] LABS: ALT (SGPT) 18 U/L (0-50); AST (SGOT) 17 U/L (17-59); Albumin 3.7 g/dl (3.5-5.0); Alkaline Phosphatase 122 U/L (38-126); Blood Urea Nitrogen 35 mg/dl (9-20); Calcium 8.2 mg/dl (8.4-10.2); Carbon Dioxide 25 mmol/L (22-30); Chloride 103 mmol/L (98-107); Estimated Creatinine Clearance 37 ml/min; Glucose 115 mg/dl (70-99); Potassium 4.4 mmol/L (3.5-5.1); Sodium 137 mmol/L (135-145); Total Protein 6.5 g/dl (6.3-8.2); eGFR 55.88
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
--- NOTE | 2025-07-08 21:10 | PTCARENOTE ---
Pt arrived from ED via stretcher, Pt pulled onto bed, pt attempted to get oob and stated 'I feel so weak. I haven't been out of bed in a few days.' green draining clear, yellow urine. Pt aaox3, forgetful. oriented to room. call gupta within reach.
[2025-07-08] MEDS: PHENOBARBITAL 65 MG IV (23:00)
[2025-07-08] MEDS: KEPPRA 500 MG IV (23:01)
[2025-07-09 08:00] VITALS: BP 116/60
[2025-07-09 08:06] LABS: Hematocrit 32.7 % (39.0-52.0); Hemoglobin 10.5 g/dL (13.0-18.0); Mean Corp Hgb Conc. 32.1 g/dL (33.0-37.0); Mean Corpuscular Volume 95.3 fL (80.0-94.0); Nucleated Red Blood Cells % 0 % (-); Platelet Count 271 10^3/uL (130-400); Red Cell Dist. Width 13.7 % (11.5-14.5)
[2025-07-09 08:58] LABS: ALT (SGPT) 18 U/L (0-50); AST (SGOT) 17 U/L (17-59); Albumin 3.7 g/dl (3.5-5.0); Alkaline Phosphatase 128 U/L (38-126); Blood Urea Nitrogen 29 mg/dl (9-20); Calcium 8.5 mg/dl (8.4-10.2); Carbon Dioxide 25 mmol/L (22-30); Chloride 106 mmol/L (98-107); Estimated Creatinine Clearance 37 ml/min; Glucose 94 mg/dl (70-99); Potassium 4.3 mmol/L (3.5-5.1); Sodium 139 mmol/L (135-145); Total Protein 6.6 g/dl (6.3-8.2); eGFR > 60.00
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
[2025-07-09] MEDS: NICODERM TRANSDERMAL 14 MG TRANSDERM (09:24)
[2025-07-09] MEDS: FLOMAX PO (09:24)
--- NOTE | 2025-07-09 09:45 | PTOTSP ---
ST Consult
Received and appreciate FACILITIES OPERATOR consultation.
Pt had an OP Video Fluoroscopic Swallow Study yesterday (07/09/2025) here at [facility].
Pt was recommended for NPO and GOC. Please see VFSS report below with summary and recommendations in bold at the bottom of this note.
Please keep pt STRICT NPO with strict aspiration precautions (HOB upright as often as possible, oral care QID with suctioning as needed) pending GOC discussion with pt and pt's family/POA/NOK.
FACILITIES OPERATOR will continue to follow pending further GOC discussions.

Video Swallow Examination - Speech Therapy
Patient Name: ZIA GARCIA
Medical Diagnosis: R13.10 Dysphagia, unspecified
Rehab Diagnosis: R13.12 Dysphagia, oropharyngeal phase
Referred by: Lucia Pugh
Date of Evaluation: 07/08/2025

Onset Date: 07/08/2025
History of Present Illness
History of current complaint: Patient is a 79-year-old male from [facility] who presented for a video swallow study. Patient was accompanied
by a BATCH OPERATOR who reported his diet as regular and thin liquids. Patient denied any
difficulty swallowing prior to admission and could not recall reason for test.
Patient may be an unreliable historian given his PMH.
Previous Interventions: speech therapy (Clinical swallow evaluations during
acute hospitalizations at [facility] 08/2020 and
10/2022.) and EGD 11/2023 with food removed from esophagus, tortuous esophagus,
and concern for eosinophilic esophagitis
Current Diet: the patient reports they are currently consuming regular textured
solids and thin liquids.
Pertinent Medical History: stroke, brain injury, COPD and seizures
Medications: Unavailable
Precautions: aspiration, cognitive, fall, standard and reflux
Allergies: no known food allergies. and no known drug allergies.
Oral Motor Skills: oral motor skills are reduced and may interfere with overall
swallowing ability (Decreased lingual, labial and mandibular range of motion.
Edentulous without dentures. Noted xerostomia.)
Voice: weak and dysarthric
Dentition : edentulous
Cognition: cognitive deficits are suspected and may interfere with overall
swallow performance and safety.
Respiratory Status: patient arrived to study in no apparent respiratory
distress and receiving no supplemental oxygen.
Assessment
Posture/View: lateral view while seated upright and AP view while seated
Consistencies Administered: thin liquid 5m, thin liquid single sip, nectar
thick liquid 5ml, nectar thick liquid single sip, honey thick liquid 5ml and
pudding
LIP CLOSURE:
Impairment Score
Pudding 2 = Escape from interlabial space or
lateral juncture; no extension beyond
vermilion border.
TONGUE CONTROL DURING BOLUS HOLD:
Presentation Method Impairment Score
[place] Thick Liquid 5 ml teaspoon 2 = Posterior escape of
less than half of bolus.
BOLUS TRANSPORT - LINGUAL MOTION:
Impairment Score
All consistencies tested 2 = Slowed tongue motion
ORAL RESIDUE:
Impairment Score Location of Residue
All consistencies tested 2 = Residue collection on multiple locations
oral structures.
INITIATION OF PHARYNGEAL SWALLOW:
Impairment Score
Thin Liquid 5ml 1 = Bolus head in vallecula
Thin Liquid Single Sip 3 = Bolus head in pyriforms.
[place] Thick Liquid 5ml 3 = Bolus head in pyriforms.
[place] Thick Liquid Single Sip 1 = Bolus head in vallecula
Honey Thick Liquid 5ml 1 = Bolus head in vallecula
Pudding 1 = Bolus head in vallecula
SOFT PALATE ELEVATION:
Impairment Score
All consistencies tested. 1 = Trace column of contrast or air
between soft palate and pharyngeal
wall.
LARYNGEAL ELEVATION:
Severity Score
All consistencies tested. 1 = Partial superior movement of
thyroid cartilage/partial
approximation of arytenoids to
epiglottic petiole.
ANTERIOR HYOID EXCURSION:
Severity Score
All consistencies tested 0 = Complete anterior movement
EPIGLOTTIC MOVEMENT:
Severity Score
All consistencies tested. 1 = Partial inversion
LARYNGEAL VESTIBULAR CLOSURE:
Severity Score
All consistencies tested. 1 = Incomplete; Narrow column
air/contrast in laryngeal vestibule.
PHARYNGEAL STRIPPING WAVE:
Severity Score
All consistencies tested. 1 = Diminished
PHARYNGOESOPHAGEAL SEGMENT OPENING:
Severity Score
All consistencies tested. 1 = Partial distension/partial
duration; partial obstruction of flow.
TONGUE BASE RETRACTION:
Severity Score
All consistencies tested. 2 = Narrow column of contrast or air
between tongue base and posterior
pharyngeal wall.
PHARYNGEAL RESIDUE:
Severity Score Location of Residue
All consistencies tested. 2 = Collection of residue diffuse >3 areas
within or on pharyngeal
structures.
ORAL PHASE: Premature spillage of liquids observed to the level of the
valleculae with mildly thick liquids via tsp. Lingual movements were slowed
with most consistencies. Lingual palatal stripping was reduced and there was at
least mild diffuse oral residue as a result that pooled to the pharynx post
swallow with liquids.
PHARYNGEAL PHASE: Episodes of penetration/aspiration observed throughout the
study (see below) - with thin liquids due to delayed laryngeal elevation and
incomplete laryngeal vestibule closure and with thicker consistencies due to
poor pharyngeal clearance resulting in pharyngeal residue and eventual
penetration aspiration. Cough/swallow sequences could clear contrast from
trachea to larynx with most trials but penetration of residue occurred with
cued dry swallows.
A chin tuck was trialed with thin and mildly thick liquids to assist with oral
containment and allow greater time to initiate airway closure. Posterior oral
containment improved with chin tuck. Visualization of larynx/trachea was poor
throughout study due to raised shoulders and penetration/aspiration could not
be assessed with thin cup chin tuck trial due to this. With mildly thick
liquids via cup, chin tuck was ineffective and resulted in deep laryngeal
penetration.
Pharyngeal residue was present due to decreased tongue based retraction,
pharyngeal stripping wave, and PES opening. Residue was diffuse and
mild-moderate with thin and mildly thick liquids, moderate and greatest in
valleculae with moderately thick liquids and moderate and greatest in pyriforms
with puree. A head rotation right was ineffective with puree and resulted in
greater pharyngeal residue in the valleculae and eventual silent aspiration of
retention. Cued dry swallows reduced but did not clear pharyngeal residue.
Penetration/Aspiration:
Thin Tsp 1: PAS 1 no laryngeal penetration/aspiration
Thin Tsp 2: PAS 7 Aspiration with an ineffective cough response
Thin Tsp Chin Tuck: Unable to visualize
Thin Cup: PAS 5 deep laryngeal penetration; patient with cough response and
airway partially obscured by raised shoulders - cannot r/o aspiration.
Mildly Thick Tsp: Aspiration of residual from prior thin trials without a cough
(PAS 8) and mildly thick
Mildly Thick Cup: PAS 3 upper penetration during the swallow and eventual trace
aspiration without a cough (PAS 8)
Mildly Thick Cup Chin Tuck: PAS 5 deep laryngeal penetration
Moderately Tsp: PAS 8 eventual silent aspiration of residual
Puree: PAS 8 eventual silent aspiration of residual
Puree Head Rotation Right: PAS 8 eventual silent aspiration of residual
Esophageal Clearance in Upright Position: 2 = Esophageal retention with
retrograde flow below pharyngoesophageal segment.
Summary
Patient presents with signs concerning for mild oral, severe pharyngeal
dysphagia, and concern for esophageal dysphagia. Patient's dysphagia may be due
to chronic factors (i.e., TBI, CVA, known history of tortuous esophagus with
food debris in esophagus) but appears to have worsened compared to last known
baseline based on clinical swallowing evaluations during acute care admissions
(2022). Further work up as to etiology of worsened dysphagia warranted.
Goals of care discussions are also warranted regarding nutrition/hydration
given aspiration of all consistencies. Patient reported no known complications
from aspiration such as repeated pneumonias or unintentional weight loss but
appeared to be an unreliable historian and could not provide PMH. Further
discussion with physician warranted.
Recommend:
1. NPO and discussion of non-oral means of nutrition/hydration vs continuation
of an oral diet understanding aspiration risks/complications (i.e., IDDSI 4
Puree, Thin liquids given esophageal dysphagia and edentulous status w/o
dentures) after education
2. FACILITIES OPERATOR f/u at rehab pending goals of care discussions for education,
instruction in pharyngeal swallowing exercises, instruction in airway
protection mechanisms
3. Compensations if opting for oral diet: small single sips/bites, slow rate,
intermittent cough/swallow, oral care 3-5x daily to reduce risk for
complications from aspiration
Recommendations
Patient/Family Communication: results and recommendation were discussed with
patient and accompanying adult who verbalized understanding.
Treating Therapist Signature
Ricarda Galvez, MS [facility]-FACILITIES OPERATOR
Date Report Signed 07/08/2025
cc:
Referring Physician: Lucia Pugh
Primary Care Physician: Lucia Pugh
--- NOTE | 2025-07-09 13:35 | CM ---
Chart reviewed
Patient was in [facility] for STR prior to admission
Needs assistance with ADLs
Admitted for aspiration ?Per AIX SYSTEM ADMINISTRATOR he is NPO
Was living with prior to admission in 06/2025 [facility] independently
Left message with
Will continue to follow up for any dcp needs
[facility] stated that he would need TF placement prior to transfer back to them
[2025-07-09 15:57] VITALS: BP 133/62
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
--- NOTE | 2025-07-09 16:57 | W.PN.GI.CBS2 ---
Today's Communication / Plan
-
EGD/peg tomorrow
Assessment / Plan
-
79yoM PMH L2 compression fracture, BPH, chronic anemia, seizure disorder, CVA, TBI, AAA, CKD, tobacco use, hip replacements living at [facility] presenting with reported dysphagia.
AFVSS. CBC CMP WNL; Hg 10.5 MCV 95.3. Pt is poor historian reporting no GI symptoms including no trouble swallowing or dysphagia. Per chart, [facility] was insistent on pt receiving feeding tube due to severity of dysphagia. Pt is currently NPO.
Speech evaluation determined pt has severe pharyngeal dysphagia and concerns for esophageal dysphagia with worsening from last evaluation 1.5 years ago. Pt has neurologic history that may be compounding dysphagia such as seizure disorder, TBI, and
CVA hx.
Pt had EGD 11/2023 demonstrating concern for eosinophilic esophagitis. Severity of swallowing has gotten increasingly worse.
#dysphagia
- Preferred study would be esophagram but too high risk of aspiration. Speech recommends strict NPO.
- Consider EGD for evidence of dysphagia or obstruction to further evaluate need for PEG/surgical G tube is esophagus is too narrow based on prior EGD concern for Eosinophilic esophagitis. Continued discussions with surgery and Gi attendings.
- Attempted to reach spouse. Will call back later to try again
#chronic normocytic anemia; stable
- no evidence of acute GI bleed
PENDING ATTENDING RECOMMENDATIONS
Subjective
Subjective
Date of Service: July 09, 2025
[phone] other number for eugenia . also spoke with granddaughter. they consent to PEG/feeding tube after risks explained. I did explain that if not endoscopically able would do surgical tube.
Objective
Data Reviewed
Laboratory Data:
Laboratory Results
07/09/25 07:26
07/09/25 07:26
Laboratory Results
PT 13.6 Sec (11.4-14.6) 07/08/25 17:20
INR 1.01 07/08/25 17:20
APTT 34.0 Sec (23.4-35.0) 07/08/25 17:20
Total Bilirubin 0.3 mg/dl (0.2-1.3) 07/09/25 07:26
AST 17 U/L (17-59) 07/09/25 07:26
ALT 18 U/L (0-50) 07/09/25 07:26
Alkaline Phosphatase 128 U/L (38-126) H 07/09/25 07:26
Vital Signs and I&O:
Vital Signs
Temp Pulse Resp BP Pulse Ox
98.4 F 81 20 133/62 95
07/09/25 15:57 07/09/25 15:57 07/09/25 15:57 07/09/25 15:57 07/09/25 15:57
I&O
07/08/25 07/09/25 07/10/25
06:59 06:59 06:59
Output Total 700 / 700
Balance -700 / -700
[2025-07-09] MEDS: KEPPRA 500 MG IV (18:34)
[2025-07-09] MEDS: D5/0.45%NACL 1000 IV (18:35)
[2025-07-09] MEDS: PHENOBARBITAL 64.8 MG IV (21:10)
[2025-07-09 23:29] VITALS: BP 146/61
[2025-07-10] VITALS (9 sets, daily range): BP systolic 102–166; BP diastolic 49–86; BMI 20.6; BMI 21.4
[2025-07-10] MEDS: FLOMAX PO (08:43)
[2025-07-10] MEDS: KEPPRA 1000 MG IV (08:43)
--- NOTE | 2025-07-10 10:30 | PTCARENOTE ---
Received from PACU s/p PEG placement with abd binder intact. PEG assessed, looks clean/dry/intact. AOx3. VSS. Offers no complaints at this time.
[2025-07-10] MEDS: NICODERM TRANSDERMAL 14 MG TRANSDERM (11:32)
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
[2025-07-10] MEDS: D5/0.45%NACL 1000 IV (12:54)
--- NOTE | 2025-07-10 17:16 | CM ---
Chart reviewed. PEG placed today
[2025-07-10] MEDS: PHENOBARBITAL 64.8 MG IV (18:14)
[2025-07-10] MEDS: KEPPRA 500 MG IV (18:21)
--- NOTE | 2025-07-10 18:40 | TRANSFER ---
Patient arrived from [facility] via stretcher, with D51/2 NSS at 60 ml/hr. VSS. Bowel movement on transfer--abdominal binder soiled. New abdominal binder obtained. AAO to self and month. Right facial droop and ptosis noted on assessment. Generalized
weakness with bilateral knee contractures. PEG site clean and dry--no erythema, no drainage. Sacral foam replaced due to bowel incontinence. Strict NPO. All patient needs met. Bed alarm in place. Call gupta and personal belongings within reach.
[2025-07-11 07:31] VITALS: BP 104/64
[2025-07-11] MEDS: FLOMAX 0.4 MG PO (08:17)
[2025-07-11] MEDS: NICODERM TRANSDERMAL 14 MG TRANSDERM (08:17)
[2025-07-11] MEDS: KEPPRA 1000 MG IV (08:17)
--- NOTE | 2025-07-11 09:05 | PTOTSP ---
Speech Language Pathology
Pt seen for clinical bedside swallow evaluation. Oral care completed with use of suction toothbrush. Coating removed from soft palate. No gag response noted. P.O. trials of ice chips provided. Cough intermittently noted. Other P.O. trials
deferred given silent aspiration noted on VSE 07/08. Initiated dysphagia tx.
Recommend:
(1) NPO
(2) Allow sparing ice chips post oral care given supervision per Aspiration Risk Hydration Protocol [facility])
(3) Meds via PEG
(4) PIE FILLING MIXER to continue to follow for dysphagia tx
--- NOTE | 2025-07-11 11:38 | W.PN.GI.CBS2 ---
Addendum entered and electronically signed by Ilda Lopez MD, Resident 07/14/25 11:58:
After careful study and lack of indicators, malnutrition has been ruled out
Addendum entered and electronically signed by Ilda Lopez MD, Resident 07/11/25 13:28:
Malnutrition
Addendum entered and electronically signed by Juanito Galo MD 07/11/25 12:54:
I saw and examined the patient.
The PA's note was reviewed and I agree with the note.
Comment:
S/p PEG yesterday. GI s/o, call w/ questions.
Original Note:
Today's Communication / Plan
-
Plan reviewed with attending
PEG check in 2 weeks outpt.
GI will sign off. Thank you for the involvement on this patient care team.
Assessment / Plan
-
79yoM PMH L2 compression fracture, BPH, chronic anemia, seizure disorder, CVA, TBI, AAA, CKD, tobacco use, hip [facility] presenting with reported dysphagia.
AFVSS. CBC CMP WNL; Hg 10.5 MCV 95.3. Pt is poor historian reporting no GI symptoms including no trouble swallowing or dysphagia. Per chart, prison was insistent on pt receiving feeding tube due to severity of dysphagia. Pt is currently NPO.
Speech evaluation determined pt has severe pharyngeal dysphagia and concerns for esophageal dysphagia with worsening from last evaluation 1.5 years ago. Pt has neurologic history that may be compounding dysphagia such as seizure disorder, TBI, and
CVA hx.
Pt had EGD 11/2023 demonstrating concern for eosinophilic esophagitis. Severity of swallowing has gotten increasingly worse.
AFVSS. PEG in place, site without drainage or erythema; healing well. Plan for PEG check in 2 weeks.
#dysphagia
- PEG placed yesterday, healing well
- Follow up outpt for PEG check
Subjective
Subjective
Date of Service: July 11, 2025
Pt denies abdominal pain. Denies nausea or vomiting.
Objective
Data Reviewed
Laboratory Data:
Laboratory Results
07/09/25 07:26
07/09/25 07:26
Laboratory Results
PT 13.6 Sec (11.4-14.6) 07/08/25 17:20
INR 1.01 07/08/25 17:20
APTT 34.0 Sec (23.4-35.0) 07/08/25 17:20
Total Bilirubin 0.3 mg/dl (0.2-1.3) 07/09/25 07:26
AST 17 U/L (17-59) 07/09/25 07:26
ALT 18 U/L (0-50) 07/09/25 07:26
Alkaline Phosphatase 128 U/L (38-126) H 07/09/25 07:26
Vital Signs and I&O:
Vital Signs
Temp Pulse Resp BP Pulse Ox
98.0 F 72 16 104/64 98
07/11/25 07:31 07/11/25 07:31 07/11/25 07:31 07/11/25 07:31 07/11/25 07:31
I&O
07/10/25 07/11/25 07/12/25
06:59 06:59 06:59
Intake Total 720 / 720
Output Total 1125 / 1125 1000 / 1000
Balance -1125 / -1125 -280 / -280
Physical Exam
Physical Exam
HEENT: Anicteric
Cardiology: Normal Sinus Rhythm
Pulmonary: Clear
GI: Soft, Non Distended, Non Tender and Other (PEG site without drainage or erythema)
Extremities: No Edema
Neuro: Non Focal
--- NOTE | 2025-07-11 12:30 | PN.CDI ---
CDI
- -
CDI:
Physician Documentation Request
Admit Date: 07/08/25 19:01
Dear Doctor Radha/Resident,
Please review the following and provide your response in the progress notes.
Clinical Indicators:
Documentation includes the diagnosis of malnutrition in GI consult. . Other clinical indicators are:
GI consult, ' He was in the hospital recently and was sent to [facility] in [place]. He was sent back because of difficulty with eating. He did have a speech evaluation which shows that he has severe pharyngeal dysphagia. He is strict NPO. ...General:
No Apparent Distress, Comfortable and Other (malnourished)...'
To ensure the quality of the medical record, based on the above information and the recognized standards for malnutrition , could you please verify in your progress notes which of the following responses best reflects the patient's nutritional
status:
(Specify severity) Malnutrition is/was present and is a clinical diagnosis (please provide additional support in the medical record)
Malnutrition is not a Valid diagnosis
Other (please specify)
[place] Criteria (ACP Hospitalist 2017)
2 or more criteria must be present for either
non severe or severe malnutrition
Note that the criteria differs related to the
presence of an acute or chronic illness
Acute Illness Chronic Illness
Energy Intake Non Severe: <75% for >7 days Non Severe: <75% for >1 month
Severe: <50% for >5 days Severe: <75% for >1 month
Weight Loss Non Severe: 1-2% over 1 week Non Severe: 5% over 1 month
5% over 1 month 7.5% over 3 months
7.5% over 3 months 10% over 6 months
1 year N/A 20% over 1 year
Severe: >2% over 1 week Severe: >5% over 1 month
>5% over 1 month >7.5% over 3 months
>7.5% over 3 months >10% over 6 months
1 year N/A >20% over 1 year
Body Fat Non Severe: Mild Decrease Non Severe: Mild Loss
Severe: Moderate Decrease Severe: Severe Loss
Muscle Mass Non Severe: Mild Decrease Non Severe: Mild Loss
Severe: Moderate Decrease Severe: Severe Loss
Fluid Accumulation Non Severe: Mild Accumulation Non Severe: Mild Accumulation
Severe: Moderate to severe Severe: Moderate to severe
accumulation accumulation
Reduced Aircraft Pneudraulics Repairer Strength Non Severe: N/A Non Severe: N/A
Severe: Measurably reduced Severe: Measurably reduced
Use of terms such as suspected, likely, concern for, or probable (associated with a specific diagnosis that is being evaluated, monitored, or treated as if it exists) are acceptable and can be coded in the inpatient setting, when documented at the
time of discharge.
Thank you,
Rosemarie Bernstein RN
CDI Specialist
[place] [employer]
Please use your independent medical judgment in providing your response.
--- NOTE | 2025-07-11 12:42 | W.PN.HOSP.TC ---
Today's Communication/Plan
-
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
Assessment / Plan
Assessment / Plan
79yo M with PMHx of seizure d/o, smoking, BPH, L2 comression Fx, Hx of CVA, TBI, AAA, dysphagia sent from [facility] with progressive dysphagia for PEG tube. Had PEG placed by GI on 07/10/25 and pending uptitration of tube feeding
A/P:
#Dysphagia
PEG and advance diet as per dietitician
GI: PEG check in 2 weeks as outaptient
#Chronic urinary rewtention
on Menjivar
#Chronic anemia
#Seizure D/O
#TBI
#CKD stage 3b
seizure precautions
cont home meds
#Mild alk.phos elevation
reactive
no abd pain
DVT ppx hep
Full code
I have spent at least 39min reviewing chart, test results, communication with consultants and providing direct patient care
Anticipated Discharge: Within 24 hours
Subjective/Interval History
-
Date of Service: July 11, 2025
Objective Data
-
Vital Signs:
Vital Signs
Temp Pulse Resp BP Pulse Ox
98.0 F 72 16 104/64 98
07/11/25 07:31 07/11/25 07:31 07/11/25 07:31 07/11/25 07:31 07/11/25 07:31
I&O
07/10/25 07/11/25 07/12/25
06:59 06:59 06:59
Intake Total 720 / 720
Output Total 1125 / 1125 1000 / 1000
Balance -1125 / -1125 -280 / -280
Review of Systems
-
History Source: Patient
All other systems: Reviewed and negative
Physical Exam
-
General: No Apparent Distress
HEENT: Normocephalic
Respiratory: Clear to Auscultation
Neuro: Awake, Alert and Slurred Speech
Psych: Calm
[2025-07-11 15:07] VITALS: BP 111/66
--- NOTE | 2025-07-11 15:40 | CM ---
Addendum entered by Kay Alexander 07/11/25 15:51:
Patient has been accepted at [facility] over weekend needs Auth
[facility]

Dr Lucia Pugh

Original Note:
Chart reviewed and patient will new peg tube waiting on tube feed orders, plan is for patient to return to [facility], on bedhold, will need Auth for skilled placement at [facility].
Plan; Skilled placement at [facility].
--- NOTE | 2025-07-11 16:17 | TRANSFER ---
Tube feeds initiated at 20 ml/hr. Increase 20 ml/hr at 0015. Patient will be at goal at 0815 tomorrow, 07/12.
[2025-07-11] MEDS: HEPARIN 5000 UNITS SC ×2 (17:43→23:10)
[2025-07-11] MEDS: KEPPRA 500 MG IV (17:44)
[2025-07-11] MEDS: PHENOBARBITAL 64.8 MG IV (17:44)
[2025-07-11 23:00] VITALS: BP 119/67
[2025-07-12 07:54] VITALS: BP 108/59
[2025-07-12] MEDS: FLOMAX PO (09:07)
[2025-07-12] MEDS: HEPARIN 5000 UNITS SC (09:07)
[2025-07-12] MEDS: KEPPRA 1000 MG IV (09:09)
[2025-07-12] MEDS: NICODERM TRANSDERMAL 14 MG TRANSDERM (09:10)
--- NOTE | 2025-07-12 10:43 | W.PN.HOSP.TC ---
Today's Communication/Plan
-
dc
Assessment / Plan
Assessment / Plan
79yo M with PMHx of seizure d/o, smoking, BPH, L2 compression Fx, Hx of CVA, TBI, AAA, dysphagia sent from [facility] with progressive dysphagia for PEG tube. Had PEG placed by GI on 07/10/25 and tolerated uptitration of tube feeding. Recommended Jevity 1.5
50ml/h. Medically stable to be d/c back to facility
A/P:
#Dysphagia
PEG and advance diet as per plant clerk
GI: PEG check in 2 weeks as outpatient
#Chronic urinary retention
on Menjivar
#tortuous pulmonary vasculature
concern for mass on XR, not proven on CT chest
#Chronic anemia
#Seizure D/O
#TBI
#CKD stage 3b
seizure precautions
cont home meds
#Mild alk.phos elevation
reactive
no abd pain
DVT ppx hep
Full code
I have spent at least 39min reviewing chart, test results, communication with consultants and providing direct patient care
Anticipated Discharge: Today
Subjective/Interval History
-
Date of Service: July 12, 2025
Objective Data
-
Vital Signs:
Vital Signs
Temp Pulse Resp BP Pulse Ox
98.2 F 74 18 108/59 96
07/12/25 07:54 07/12/25 07:54 07/12/25 07:54 07/12/25 07:54 07/12/25 07:54
I&O
07/11/25 07/12/25 07/13/25
06:59 06:59 06:59
Intake Total 720 / 720 680 / 680
Output Total 1000 / 1000 1050 / 1050
Balance -280 / -280 -370 / -370
Review of Systems
-
History Source: Patient
All other systems: Reviewed and negative
Physical Exam
-
General: Comfortable
HEENT: Normocephalic
Respiratory: Clear to Auscultation
GI: Soft, Nontender, Nondistended and Peg Tube
Neuro: Awake and Alert
Psych: Calm
--- NOTE | 2025-07-12 10:51 | W.DCSUMMARY ---
Discharge Summary
Discharge Data
Date of Admission: 07/08/25
Date of Discharge: 07/12/25
-
Pending Results: No
Hospital Course
79yo M with PMHx of seizure d/o, smoking, BPH, L2 compression Fx, Hx of CVA, TBI, AAA, dysphagia sent from [facility] with progressive dysphagia for PEG tube. Had PEG placed by GI on 07/10/25 and tolerated uptitration of tube feeding. Recommended Jevity 1.5
50ml/h. Medically stable to be d/c back to facility. GI to check PEG in 2 weeks upon d/c. VascSx for outpatient aortic arc aneurism management
I have spent at least 39min reviewing chart, test results, communication with consultants and providing direct patient care
Patient was managed for:
#Dysphagia
#Chronic urinary retention
#tortuous pulmonary vasculature
#aortic arc aneurism 4.0cm
#Emphysema
#Renal cysts
#Chronic vertebral compression Fx
#Chronic anemia
#Seizure D/O
#TBI
#CKD stage 3b
#BPH
#Mild alk.phos elevation
Discharge Plan
-
Patient Disposition: [facility]NF
Discharge Diagnosis/Procedures: Dysphagia
Condition: Good
Diet: Tube feeding
Activity Restrictions/Additional Instructions:
Presented from nursing facility for dysphagia ongoing by 3weeks requiring PEG tube placement abdominal CT brain no acute intracranial normalities, unable to obtain Brain MRI due to metal plate. Evaluated by gastroenterology was able to place a PEG
tube 07/10/2025. Nutrition evaluated recommended tube feeds along with medsvia Peg Tube. Discharged back to [facility]
IMPRESSION:
No acute intracranial abnormality noted.
Instructions: Dysphagia (DC)
Referrals:
Walt Menjivar III, MD [Active, Vascular Surgery] - in one month
Referral Note: follow up for aortic arc aneurism management
Tenisha Barrett CRNP [Specified Professional Personl, Gastroenterology]
Referral Note: follow up in 2 weeks for peg check
Lucia Pugh DO [Family Provider, General]
Prescriptions:
New
levetiracetam [Keppra] 100 mg/mL solution
1,000 mg feeding tube BID Qty: 200 0RF
levetiracetam [Keppra] 100 mg/mL solution
500 mg feeding tube HS Qty: 200 0RF
Continued
nicotine 14 mg/24 hr Patch 24 Hour
14 mg transdermal DAILY Qty: 28 0RF
tamsulosin 0.4 mg Capsule
0.4 mg PO DAILY Qty: 30 0RF
lidocaine 4 % Adhesive Patch,Medicated
1 patch topical DAILY Qty: 30 0RF
Rx Instructions:
lower back
Changed
sennosides [Starr-ricki] 8.6 mg Tablet
8.6 mg feeding tube BID Qty: 60 0RF
Rx Instructions:
hold for diarrhea
acetaminophen 325 mg Tablet
650 mg feeding tube Q4HPRN PRN (Reason: mild pain/ELDER/temp> 100.4F) Qty: 30 0RF
polyethylene glycol 3350 17 gram Powder In Packet
17 g feeding tube DAILY Qty: 30 0RF
Rx Instructions:
hold for diarrhea
phenobarbital 32.4 mg Tablet
64.8 mg feeding tube QPM Qty: 0 0RF
Patient Comments:
05/03/2024: last filled 01/02/24, 60 tabs for 30 days from [id number]
oxycodone 5 mg Tablet
5 mg feeding tube Q4HPRN PRN (Reason: moderate pain) Qty: 5 0RF
Discontinued
levetiracetam [Keppra] 500 mg Tablet
500 mg PO QPM
levetiracetam 500 mg tablet
1,000 mg PO DAILY
Discharge Orders:
Discharge Patient (As Directed); Ordered 07/12/25
Ordered By: Gabriel Espinal
Discharge Date and Time
Print Language: GUYANESE
[2025-07-12 13:59] VITALS: BP 106/47
--- NOTE | 2025-07-12 14:12 | CM ---
F/U: Hospitalist stated that patient is ready, has new Tube feeds, and the plan is [facility] where he has a bed hold, but need insurance Auth. JODIE Hays Completed [employer] Authorization.
Auth: #[id number]
07/12 to 07/18
Report: [phone]

Auth provided to Angela Santiago, the [employer] via [place] [employer]. JODIE Hays had already spoke to Rashad, the Nursing Electric Meter Inspector about the isolation and Menjivar. Transportation arranged for 16:45, IMM completed. PLAN: SNF to [facility] today.
== END 2025-07-12 14:19 | DRG 392 ==
LOC: 4 WEST ACU 19:01
PROVIDERS: Physician Assistant Medical; ADMITTING PHYSICIAN Hospitalist; ATTENDING PHYSICIAN Internal Medicine; CONSULT PHYSICIAN Internal Medicine; EMERGENCY PHYSICIAN Emergency Medicine; FAMILY PHYSICIAN Family Medicine
PROC: 0DH63UZ Insertion of Feeding Device into Stomach, Percutaneous Approach (ICD-10-PCS; 2025-07-10)
DX: R13.14 Dysphagia, pharyngoesophageal phase (principal); M80.08XA Age-related osteoporosis with current pathological fracture, vertebra(e), initial encounter for fracture; R13.12 Dysphagia, oropharyngeal phase; D64.9 Anemia, unspecified; G40.909 Epilepsy, unspecified, not intractable, without status epilepticus; Z87.820 Personal history of traumatic brain injury; N18.32 Chronic kidney disease, stage 3b; I12.9 Hypertensive chronic kidney disease with stage 1 through stage 4 chronic kidney disease, or unspecified chronic kidney disease; E11.22 Type 2 diabetes mellitus with diabetic chronic kidney disease; F17.210 Nicotine dependence, cigarettes, uncomplicated; N40.1 Benign prostatic hyperplasia with lower urinary tract symptoms; Z79.899 Other long term (current) drug therapy; Z79.891 Long term (current) use of opiate analgesic; Z66 Do not resuscitate; Z96.643 Presence of artificial hip joint, bilateral; J43.9 Emphysema, unspecified; N28.1 Cyst of kidney, acquired; R33.8 Other retention of urine
CPT/HCPCS: 70450; 71046; 71260; 80053; 85025; 85610; 85730; 86850; 86900; 86901; 92526; 92610; 99285; Q9967

== ENCOUNTER → 2025-07-14 12:43 | Outpatient (REF) | payer MEDICARE, SELFPAY ==
[2025-07-14 13:23] LABS: Hematocrit 34.0 % (39.0-52.0); Hemoglobin 10.5 g/dL (13.0-18.0); Mean Corp Hgb Conc. 30.9 g/dL (33.0-37.0); Mean Corpuscular Volume 97.4 fL (80.0-94.0); Nucleated Red Blood Cells % 0 % (-); Platelet Count 240 10^3/uL (130-400); Red Cell Dist. Width 13.5 % (11.5-14.5)
[2025-07-14 13:26] LABS: Blood Urea Nitrogen 28 mg/dl (9-20); Calcium 8.5 mg/dl (8.4-10.2); Carbon Dioxide 28 mmol/L (22-30); Chloride 100 mmol/L (98-107); Glucose 87 mg/dl (70-99); Potassium 4.2 mmol/L (3.5-5.1); Sodium 132 mmol/L (135-145); eGFR > 60.00
== END ==
LOC: OLABP 12:43
PROVIDERS: ATTENDING PHYSICIAN Family Medicine
DX: I10 Essential (primary) hypertension (principal); S32.020D Wedge compression fracture of second lumbar vertebra, subsequent encounter for fracture with routine healing; G40.909 Epilepsy, unspecified, not intractable, without status epilepticus
CPT/HCPCS: 36415; 80048; 85025

== ENCOUNTER → 2025-07-15 16:43 | Outpatient (REF) | payer MEDICARE, SELFPAY ==
[2025-07-15 17:36] LABS: Blood Urea Nitrogen 35 mg/dl (9-20); Calcium 8.6 mg/dl (8.4-10.2); Carbon Dioxide 30 mmol/L (22-30); Chloride 100 mmol/L (98-107); Glucose 81 mg/dl (70-99); Potassium 4.6 mmol/L (3.5-5.1); Sodium 131 mmol/L (135-145); eGFR > 60.00
== END ==
LOC: OLABP 16:43
PROVIDERS: ATTENDING PHYSICIAN Family Medicine
DX: I10 Essential (primary) hypertension (principal); S32.020D Wedge compression fracture of second lumbar vertebra, subsequent encounter for fracture with routine healing; G40.909 Epilepsy, unspecified, not intractable, without status epilepticus
CPT/HCPCS: 36415; 80048

== ENCOUNTER → 2025-07-17 10:58 | Outpatient (REF) | payer MEDICARE, SELFPAY ==
[2025-07-17 11:23] LABS: Blood Urea Nitrogen 40 mg/dl (9-20); Calcium 8.5 mg/dl (8.4-10.2); Carbon Dioxide 30 mmol/L (22-30); Chloride 100 mmol/L (98-107); Glucose 103 mg/dl (70-99); Potassium 4.6 mmol/L (3.5-5.1); Sodium 133 mmol/L (135-145); eGFR 55.88
== END ==
LOC: OLABP 10:58
PROVIDERS: ATTENDING PHYSICIAN Family Medicine
DX: S32.020D Wedge compression fracture of second lumbar vertebra, subsequent encounter for fracture with routine healing (principal); G40.909 Epilepsy, unspecified, not intractable, without status epilepticus; I10 Essential (primary) hypertension
CPT/HCPCS: 36415; 80048

== ENCOUNTER → 2025-07-21 09:39 | Outpatient (REF) | payer MEDICARE, SELFPAY ==
[2025-07-21 11:06] LABS: Blood Urea Nitrogen 57 mg/dl (9-20); Calcium 8.5 mg/dl (8.4-10.2); Carbon Dioxide 27 mmol/L (22-30); Chloride 103 mmol/L (98-107); Glucose 129 mg/dl (70-99); Potassium 4.3 mmol/L (3.5-5.1); Sodium 139 mmol/L (135-145); eGFR 55.88
== END ==
LOC: OLABPG 09:39
PROVIDERS: ATTENDING PHYSICIAN Family Medicine
DX: S32.020D Wedge compression fracture of second lumbar vertebra, subsequent encounter for fracture with routine healing (principal); G40.909 Epilepsy, unspecified, not intractable, without status epilepticus; I10 Essential (primary) hypertension
CPT/HCPCS: 36415; 80048

== ENCOUNTER → 2025-07-25 10:30 | Outpatient (REF) | payer MEDICARE, SELFPAY ==
[2025-07-25 11:32] LABS: Blood Urea Nitrogen 50 mg/dl (9-20); Calcium 8.6 mg/dl (8.4-10.2); Carbon Dioxide 29 mmol/L (22-30); Chloride 106 mmol/L (98-107); Glucose 103 mg/dl (70-99); Potassium 4.4 mmol/L (3.5-5.1); Sodium 141 mmol/L (135-145); eGFR > 60.00
== END ==
LOC: OLABPG 10:30
PROVIDERS: ATTENDING PHYSICIAN Family Medicine
DX: S32.020D Wedge compression fracture of second lumbar vertebra, subsequent encounter for fracture with routine healing (principal); G40.909 Epilepsy, unspecified, not intractable, without status epilepticus; I10 Essential (primary) hypertension
CPT/HCPCS: 36415; 80048

== ENCOUNTER 2025-08-13 16:58 | Inpatient (IN) | payer MEDICARE, SELFPAY ==
[2025-08-13] VITALS (17 sets, daily range): BP systolic 90–148; BP diastolic 41–80; BMI 19.3; BMI 20.3
[2025-08-13 09:38] LABS: Hematocrit 32.8 % (39.0-52.0); Hemoglobin 10.3 g/dL (13.0-18.0); Mean Corp Hgb Conc. 31.4 g/dL (33.0-37.0); Mean Corpuscular Volume 99.7 fL (80.0-94.0); Nucleated Red Blood Cells % 0 % (-); Platelet Count 195 10^3/uL (130-400); Red Cell Dist. Width 14.6 % (11.5-14.5)
[2025-08-13 09:51] LABS: ALT (SGPT) 18 U/L (0-50); AST (SGOT) 20 U/L (17-59); Albumin 3.7 g/dl (3.5-5.0); Alkaline Phosphatase 85 U/L (38-126); Blood Urea Nitrogen 65 mg/dl (9-20); Calcium 8.5 mg/dl (8.4-10.2); Carbon Dioxide 26 mmol/L (22-30); Chloride 112 mmol/L (98-107); Estimated Creatinine Clearance 22 ml/min; Glucose 121 mg/dl (70-99); Magnesium 2.6 mg/dl (1.6-2.3); Potassium 3.7 mmol/L (3.5-5.1); Sodium 149 mmol/L (135-145); Total Protein 6.8 g/dl (6.3-8.2); eGFR 35.22
[2025-08-13] MEDS: NSS 1000 IV ×2 (09:55→20:38)
--- NOTE | 2025-08-13 09:55 | ED.GENMED ---
History of Present Illness
<Stacey Seth PA-C - Last Filed: 08/13/25 15:00>
General
Chief Complaint: Breathing Problem
Time Seen by Provider: 08/13/25 09:30
History of Present Illness
History of Present Illness:
se MDM
Past History
<DOMINICK Ayala Last Filed: 08/13/25 15:00>
Past History
ED Past Medical History: HTN, Renal failure, Seizures, Other (Ataxia, Traumatic brain injury, Left hip dislocation), Other (phenytoin toxicity 2017, 2019) and Other (right humeral fracture, vitamin D deficiency)
ED Past Surgical History: Orthopedic (Left hip replacement, right partial hip replacement, right femur fracture) and Other (brain surgery, craniotomy with right-sided head plate)
Social History
Tobacco: Former smoker
Alcohol: None
Drug: None
Personal:
Living: with family
Employment: Not employed
Family History
Family History: Other (reviewed and Noncontributory)
Phy Exam
<DOMINICK Ayala Last Filed: 08/13/25 15:00>
Physical Exam
Physical Exam:
GENERAL: Alert , tachypneic
EYE: pupils equal and reactive
NECK: Supple
ENT: o/p clr, edentulous, dry mouth
CARDIAC: Tachycardia
LUNGS: Clear breath sounds bilaterally, no acute respiratory distress, no wheezes/rales/rhonchi
ABDOMEN: Soft, without focal tenderness, no r/g, no cvat, normal bowel sounds PEG tube
NEUROLOGICAL: Alert and oriented, no focal neuro deficits
SKIN: Warm and dry, skin intact.
MUSCULOSKELETAL: No edema, well perfused. neg lainey's sign
PSYCH: Normal and appropriate interaction.
Scores
<DOMINICK Ayala Last Filed: 08/13/25 15:00>
Heart Failure Risk
Heart Failure Risk Score: Not Applicable
Sepsis
<Stacey Seth PA-C - Last Filed: 08/13/25 15:00>
Sepsis Screening
Sepsis Assessment: Sepsis
Sepsis Screen
Sepsis Screen: Sepsis
Date: 08/13/25
Time: 14:59
Course
<Stacey Seth PA-C - Last Filed: 08/13/25 15:00>
Orders/Labs/Results
Orders:
Orders
08/13/25 09:09
EKG- Treatment ONCE
08/13/25 09:18
Complete Blood Count/With Diff Urgent
Comprehensive Metabolic Panel Urgent
Magnesium Urgent
Pro-BNP [NT-proBNP] Urgent
Influenza A+B Rapid Molecular Urgent
JOVANNA Source: Nasal Swab
Specimen Description:
08/13/25 09:19
COVID-19 Antigen Urgent
Source: Nasal Swab
08/13/25 09:21
EKG [Electrocardiogram (*1)] Urgent
Reason for Study: Shortness of Breath
08/13/25 09:22
EKG- Treatment ONCE
08/13/25 09:51
CR Chest - 2 Views Urgent
Comment:
Reason For Exam: cough, hypoxia
08/13/25 09:52
0.9% Sodium Chloride 1000 ml [Nss] 1,000 ml IV BOLUS
08/13/25 09:57
Lactic Acid Urgent
Blood Culture Q30M
JOVANNA Source: Blood/Venous
Specimen Description:
08/13/25 10:27
Azithromycin 500 mg/250 ml [Zithromax Infusion] 500 mg in 250 ml IV NOW
CefTRIAXone [Rocephin] 1,000 mg IV NOW STA
08/13/25 10:59
Blood Culture Q30M
JOVANNA Source: Blood/Venous
Specimen Description:
08/13/25 13:37
Lorazepam [Ativan] 0.5 mg IV NOW STA
08/13/25 13:41
Lorazepam [Ativan] 2 mg .ROUTE .STK-MED ONE
Abnormal Lab Results
08/13/25 08/13/25
09:18 09:57
WBC 18.2 H 10^3/uL
(4.8-10.8)
RBC 3.29 L 10^6/uL
(4.70-6.10)
Hgb 10.3 L g/dL
(13.0-18.0)
Hct 32.8 L %
(39.0-52.0)
MCV 99.7 H fL
(80.0-94.0)
MCH 31.3 H pg
(27.0-31.0)
MCHC 31.4 L g/dL
(33.0-37.0)
RDW 14.6 H %
(11.5-14.5)
MPV 12.4 H fL
(7.4-10.4)
Abs Immat Gran (auto) 0.1 H 10^3/uL
(0-0.05)
Absolute Neuts (auto) 16.0 H 10^3/uL
(1.4-6.5)
Absolute Lymphs (auto) 1.1 L 10^3/uL
(1.2-3.4)
Absolute Monos (auto) 0.9 H 10^3/uL
(0.1-0.6)
Neutrophils % 87.8 H %
(42.2-75.2)
Lymphocytes % 6.2 L %
(20.5-51.1)
Sodium 149 H mmol/L
(135-145)
Chloride 112 H mmol/L
(98-107)
BUN 65 H mg/dl
(9-20)
Creatinine 1.9 H mg/dL
(0.7-1.3)
Glucose 121 H mg/dl
(70-99)
Lactic Acid 2.3 H mmol/L
(0.7-2.0)
Magnesium 2.6 H mg/dl
(1.6-2.3)
08/13/25 09:18
08/13/25 09:18
Vital Signs
Initial and Last Documented VS:
Initial Vital Signs
Temp Pulse Resp BP Pulse Ox
37.0 C 105 26 90/58 96
08/13/25 09:06 08/13/25 09:06 08/13/25 09:06 08/13/25 09:06 08/13/25 09:06
Last Documented Vital Signs
Temp Pulse Resp BP Pulse Ox
36.9 C 111 22 105/80 96
08/13/25 13:00 08/13/25 13:00 08/13/25 13:00 08/13/25 13:00 08/13/25 13:00
sandra;Gallo Bobby, - Last Filed: 08/13/25 14:40>
Orders/Labs/Results
Orders:
Orders
08/13/25 09:09
EKG- Treatment ONCE
08/13/25 09:18
Complete Blood Count/With Diff Urgent
Comprehensive Metabolic Panel Urgent
Magnesium Urgent
Pro-BNP [NT-proBNP] Urgent
Influenza A+B Rapid Molecular Urgent
JOVANNA Source: Nasal Swab
Specimen Description:
08/13/25 09:19
COVID-19 Antigen Urgent
Source: Nasal Swab
08/13/25 09:21
EKG [Electrocardiogram (*1)] Urgent
Reason for Study: Shortness of Breath
08/13/25 09:22
EKG- Treatment ONCE
08/13/25 09:51
CR Chest - 2 Views Urgent
Comment:
Reason For Exam: cough, hypoxia
08/13/25 09:52
0.9% Sodium Chloride 1000 ml [Nss] 1,000 ml IV BOLUS
08/13/25 09:57
Lactic Acid Urgent
Blood Culture Q30M
JOVANNA Source: Blood/Venous
Specimen Description:
08/13/25 10:27
Azithromycin 500 mg/250 ml [Zithromax Infusion] 500 mg in 250 ml IV NOW
CefTRIAXone [Rocephin] 1,000 mg IV NOW STA
08/13/25 10:59
Blood Culture Q30M
JOVANNA Source: Blood/Venous
Specimen Description:
08/13/25 13:37
Lorazepam [Ativan] 0.5 mg IV NOW STA
08/13/25 13:41
Lorazepam [Ativan] 2 mg .ROUTE .STK-MED ONE
Abnormal Lab Results
08/13/25 08/13/25
09:18 09:57
WBC 18.2 H 10^3/uL
(4.8-10.8)
RBC 3.29 L 10^6/uL
(4.70-6.10)
Hgb 10.3 L g/dL
(13.0-18.0)
Hct 32.8 L %
(39.0-52.0)
MCV 99.7 H fL
(80.0-94.0)
MCH 31.3 H pg
(27.0-31.0)
MCHC 31.4 L g/dL
(33.0-37.0)
RDW 14.6 H %
(11.5-14.5)
MPV 12.4 H fL
(7.4-10.4)
Abs Immat Gran (auto) 0.1 H 10^3/uL
(0-0.05)
Absolute Neuts (auto) 16.0 H 10^3/uL
(1.4-6.5)
Absolute Lymphs (auto) 1.1 L 10^3/uL
(1.2-3.4)
Absolute Monos (auto) 0.9 H 10^3/uL
(0.1-0.6)
Neutrophils % 87.8 H %
(42.2-75.2)
Lymphocytes % 6.2 L %
(20.5-51.1)
Sodium 149 H mmol/L
(135-145)
Chloride 112 H mmol/L
(98-107)
BUN 65 H mg/dl
(9-20)
Creatinine 1.9 H mg/dL
(0.7-1.3)
Glucose 121 H mg/dl
(70-99)
Lactic Acid 2.3 H mmol/L
(0.7-2.0)
Magnesium 2.6 H mg/dl
(1.6-2.3)
08/13/25 09:18
08/13/25 09:18
Vital Signs
Initial and Last Documented VS:
Initial Vital Signs
Temp Pulse Resp BP Pulse Ox
37.0 C 105 26 90/58 96
08/13/25 09:06 08/13/25 09:06 08/13/25 09:06 08/13/25 09:06 08/13/25 09:06
Last Documented Vital Signs
Temp Pulse Resp BP Pulse Ox
36.9 C 111 22 105/80 96
08/13/25 13:00 08/13/25 13:00 08/13/25 13:00 08/13/25 13:00 08/13/25 13:00
<Stacey Seth PA-C - Last Filed: 08/13/25 15:00>
MDM/Problems Addressed
Differential Diagnosis Includes:
see MDM
MDM/Problems Addressed:
Note:
CHIEF COMPLAINT(S)
Difficulty breathing
HISTORY OF PRESENT ILLNESS
The patient is an 80-year-old male from [facility] presenting with difficulty breathing. he is poor historian
somewhat confused baseline
He describes feeling 'not too good' and experiencing trouble breathing. The onset and duration of symptoms were not specified. No further details about associated symptoms, severity, or aggravating factors were provided during the conversation.
i spoke with RN
says he got diagnosed with pna yesterday started augmentin
normally doesn't wear o2
this morning RN noticed difficulty breathing and hypoxia
no h/o dvt/pe
she put him on o2
no fever known
pt has not had any chest pain, leg swelling
no documented history of CHF
PHYSICAL EXAM
- Respiratory: Difficulty in breathing noted.
- Nursing notes reviewed and vital signs reviewed.
PROBLEM LIST
- Acute: Difficulty breathing
DIFFERENTIAL DIAGNOSIS
The Differential Diagnosis includes, in no particular order and is not limited to:
1. Chronic obstructive pulmonary disease (COPD) exacerbation
2. Congestive heart failure
3. Pneumonia
4. Pulmonary embolism
5. Asthma
6. Acute bronchitis
7. Interstitial lung disease
8. Pleural effusion
9. Anemia
10. Myocardial infarction or cardiac ischemia
80-year-old male from a assisted, some memory loss at baseline and a TBI, former smoker presents for hypoxia and shortness of breath this morning. Patient apparently was coughing and maybe a little short of breath yesterday which prompted the
staff to order a chest x-ray. I spoke with the RN who was not there yesterday but is there today and says that he is on Augmentin since yesterday. Patient woke up this morning and was tachypneic and hypoxic on room air. He does not normally need
oxygen. On exam he was hypoxic to 80%, tachypneic, has crackles in bilateral bases, worse on the left, no significant pitting edema, was awake and alert, oriented to person which seems like his baseline.
His white count is 18
, he has a soft blood pressure, he has an OTTONIEL, a lactate of 2.3. His chest x-ray was independently reviewed by me and shows a left basilar pneumonia. He will be admitted for IV antibiotics and oxygen
he is full code
<Stacey Seth PA-C - Last Filed: 08/13/25 15:00>
*Pulse Oximetry
SaO2: 74
Nasal Cannula flow liters per minute: 4
Patient hypoxic: yes (88)
*Critical Care Note
Total Time (30-74mins, 75-104mins- exclusive of procedures): Not Applicable
ED Attending Note
<Stacey Seth PA-C - Last Filed: 08/13/25 15:00>
-
Portions of this chart may have been created with voice recognition software.� Occasional wrong word or��sound alike� substitutions may have occurred due to the inherent limitations of voice recognition software.
<Gallo Bobby DO - Last Filed: 08/13/25 14:40>
ED Attending Note
Patient seen and examined by attending physician: Yes
I performed the substantive portion of visit, reviewed & personally made and approve the management plan that is documented in note by myself or SHAKA.: Yes
ED Attending Note:
I agree with simone's note.
Pt sent with cough and hypoxia. Pt had cxr yesterday which showed pneumonia. No improvement with 1 day of Augmentin.
General: Awake, confused, appears chronically ill with superimposed moderate increased work of breathing
Vitals: Mildly hypotensive, tachycardic on arrival
Head: Atraumatic
Eyes: Pupils equal, EOMI
Throat: Airway intact, no exudates
Neck: Trachea midline
Lungs: Clear and equal b/l
Heart: Regular rate, no murmurs
Abd: Soft, Nontender, feeding tube in place, no pulsatile mass
Neuro: Nonfocal
Skin: Warm, dry, no rash
Extremities: pulses equal b/l, no edema
Patient presents with pneumonia, sepsis. IV fluids administered. IV antibiotics administered. IV fluids stopped after 1 L as his pressure normalized and he does have a history of heart failure.
Discharge Plan
Departure
Patient Disposition: Admit
Date of Disposition: 08/13/25
Time of Disposition:
Admit to: IMU
Presentation/result/management discussed w/ accepting MD/DO: Hospitalist
Condition: Fair
Covid-19: Not Applicable
Discharge Problem:
Pneumonia, Hypoxia
Prescriptions:
No Action
acetaminophen 325 mg Tablet
650 mg feeding tube Q4HPRN PRN (Reason: mild pain/ELDER/temp> 100.4F) Qty: 30 0RF
ipratropium-albuterol [DuoNeb] 0.5 mg-3 mg(2.5 mg base)/3 mL Solution For Nebulization
3 ml INHALATION R TID
ondansetron HCl [Zofran] 4 mg Tablet
4 mg feeding tube Q6HPRN PRN (Reason: nausea)
dextromethorphan-guaifenesin [Izwfezkvoa-Uejaf-Eutor-Melo] 10-100 mg/5 mL Syrup
20 ml feeding tube Q6H
Rx Instructions:
for 3 days standing order until 08/15/25
dextromethorphan-guaifenesin [Juuttatafp-Usdld-Eatyh-Melo] 10-100 mg/5 mL Syrup
20 ml feeding tube Q4HPRN PRN (Reason: cough)
acetaminophen [Tylenol Extra Strength] 500 mg Tablet
1,000 mg PO BID
pantoprazole [Protonix] 20 mg Tablet,Delayed Release (Dr/Ec)
20 mg PO DAILY
amoxicillin-pot clavulanate [Augmentin] 400-57 mg/5 mL Suspension For Reconstitution
10 ml feeding tube BID
Rx Instructions:
for 5 days starting 08/12/25
magnesium hydroxide [Milk of Magnesia] 400 mg/5 mL Suspension
2,400 mg feeding tube [id number] PRN (Reason: if no bm by 3rd day give day 4)
bisacodyl [Dulcolax (bisacodyl)] 10 mg Suppository
10 mg MS DAILYPRN PRN (Reason: if no bm aftr mom give on day 6)
Fleet Enema 19-7 gram/118 mL Enema
118 ml MS DAILYPRN PRN (Reason: if no bm after dulcolax give on day 6)
lorazepam [Lorazepam Intensol] 2 mg/mL Concentrate
0.5 mg feeding tube BIDPRN PRN (Reason: anxiety)
Visbiome 112.5 billion cell Capsule
1 cap PO BID
diclofenac sodium [Voltaren] 1 % Gel
0 g TOPICAL HS
Lorazepam Gel 2mg/Ml
0.25 ml topical HS
sennosides [Starr-ricki] 8.6 mg tablet
8.6 mg feeding tube BID
lidocaine [AsperFlex (lidocaine)] 4 % adhesive patch,medicated
2 patch topical DAILY
polyethylene glycol 3350 17 gram powder in packet
17 g feeding tube DAILY
tamsulosin 0.4 mg capsule
0.4 mg PO HS
phenobarbital 32.4 mg tablet
64.8 mg feeding tube HS
levetiracetam [Keppra] 100 mg/mL solution
500 mg feeding tube HS
levetiracetam [Keppra] 100 mg/mL solution
1,000 mg feeding tube BID
Referrals:
Lucia Pugh DO [Family Provider, General]
Interventions
Interventions:
*Risk Screen - Suicide Last Done: 08/13/25 09:06
*General Assessment Last Done: 08/13/25 09:06
*Neglect/Abuse Screening Last Done: 08/13/25 09:06
*ED COVID-19 Vaccine History Last Done: 08/13/25 09:06
*ED Influenza Vaccine History Last Done: 08/13/25 09:06
[facility] Fall Risk Assessment Tool Last Done: 08/13/25 09:06
ED- Cardiac Assessment Last Done: 08/13/25 09:06
ED- Pulmonary Assessment Last Done: 08/13/25 09:06
Discharge Date and Time
Print Language: MALAY
[2025-08-13 09:58] LABS: COVID-19 Antigen Negative (Negative)
[2025-08-13] MEDS: ROCEPHIN 1000 MG IV (11:08)
[2025-08-13] MEDS: ZITHROMAX INFUSION 250 IV (11:08)
[2025-08-13] MEDS: ATIVAN 0.5 MG IV (13:43)
--- NOTE | 2025-08-13 16:05 | HPS.HSE ---
Family Physician
-
Family Physician: Lucia Pugh, DO
Chief Complaint
-
Shortness of breath with hypoxia
History of Present Illness
Patient is 8 years old male presents to the emergency room from nursing facility with hypoxia. History was taken from halfway staff and medical records. Patient himself is a poor historian.
Currently patient was not feeling well for the last few days and diagnosed with pneumonia and initiated on Augmentin. Patient with persistent symptoms found to be hypoxic with pulse ox of 80% on room air morning of presentation.
On presentation to the emergency room patient is remains hypoxic, lethargic, found kim hypotensive.
Additional evaluation notable for leukocytosis, mildly elevated lactic acid level and creatinine at 1.9.
Imaging with chest x-ray consistent with left lower lobe infiltrate
Medical History
Past Medical History
Past Medical History: Reports CVA
Additional Past Medical History:
Dysphagia.
Traumatic brain injury.
Chronic bladder outlet obstruction with indwelling Menjivar catheter
Past Surgical History: Reports Other (PEG tube. Neurosurgical intervention)
Social History
Tobacco: Non-smoker
Alcohol: None
Drug: None
Living: Residential
Family History
Family History: Not pertinent
Allergies / Home Medications
Allergies reflects when Allergies were last updated in [employer].
Home Medications with original date entered in [employer]
Allergy/Medication List:
Allergies
Allergy/AdvReac Type Severity Reaction Status Date / Time
No Known Allergies Allergy Verified 07/08/25 15:27
Home Medications
acetaminophen 325 mg tablet 650 mg (2 x 325 mg) feeding tube Q4HPRN PRN mild pain/ELDER/temp> 100.4F #30 tabs 07/10/25
Lactobac no.2-Bifidobac no.1-S. thermo 112.5 billion cell capsule (Visbiome) 1 cap PO BID via peg tube 08/13/25
Lorazepam Gel 2mg/Ml 0.25 ml topical HS Mental Health/Anxiety 08/13/25
acetaminophen 500 mg tablet (Tylenol Extra Strength) 1,000 mg PO BID Anti-Inflammatory 08/13/25
amoxicillin 400 mg-potassium clavulanate 57 mg/5 mL oral suspension 10 ml feeding tube BID 08/13/25
bisacodyl 10 mg rectal suppository (Dulcolax (bisacodyl)) 10 mg CA DAILYPRN PRN if no bm aftr mom give on day 6 08/13/25
dextromethorphan-guaifenesin 10 mg-100 mg/5 mL oral syrup 20 ml feeding tube Q4HPRN PRN cough 08/13/25
dextromethorphan-guaifenesin 10 mg-100 mg/5 mL oral syrup 20 ml feeding tube Q6H 08/13/25
diclofenac sodium 1 % topical gel 0 g topical HS lower back 08/13/25
ipratropium 0.5 mg-albuterol 3 mg (2.5 mg base)/3 mL nebulization soln 3 ml inhalation R TID Lung/Breathing Issues 08/13/25
levetiracetam 100 mg/mL oral solution (Keppra) 1,000 mg feeding tube BID Seizures 08/13/25
levetiracetam 100 mg/mL oral solution (Keppra) 500 mg feeding tube HS Seizures 08/13/25
lidocaine 4 % topical patch (AsperFlex (lidocaine)) 2 patch topical DAILY lower back 08/13/25
lorazepam 2 mg/mL oral concentrate (Lorazepam Intensol) 0.5 mg feeding tube BIDPRN PRN anxiety 08/13/25
magnesium hydroxide 400 mg/5 mL oral suspension (Milk of Magnesia) 2,400 mg feeding tube [id number] PRN if no bm by 3rd day give day 4 08/13/25
ondansetron HCl 4 mg tablet 4 mg feeding tube Q6HPRN PRN nausea 08/13/25
pantoprazole 20 mg tablet,delayed release (Protonix) 20 mg PO DAILY via peg tube 08/13/25
phenobarbital 32.4 mg tablet 64.8 mg feeding tube HS Seizures 08/13/25
polyethylene glycol 3350 17 gram oral powder packet 17 g feeding tube DAILY Constipation 08/13/25
sennosides 8.6 mg tablet (Starr-ricki) 8.6 mg feeding tube BID Constipation 08/13/25
sodium phosphates 19 gram-7 gram/118 mL enema (Fleet Enema) 118 ml CA DAILYPRN PRN if no bm after dulcolax give on day 6 08/13/25
tamsulosin 0.4 mg capsule 0.4 mg PO HS via peg tube 08/13/25
Review of Systems
-
Unable to obtain full review of systems at this time due to: Dementia
Physical Exam
Vital Signs
Vital Signs
Temp Pulse Resp BP Pulse Ox
98.5 F 105 26 101/55 98
08/13/25 13:00 08/13/25 15:38 08/13/25 15:38 08/13/25 15:38 08/13/25 15:38
Physical Exam
General: Well Developed, Well Nourished and No Apparent Distress
HEENT: NormoCephalic, Moist mucous membranes and Atraumatic
Respiratory: Rhonchi; No Wheezes
Cardiac: S1/S2 and Regular Rhythm; No Murmur or Rub
GI: Soft, Non Tender, Non Distended, Normal Bowel Sounds and Peg Tube (Intact site); No Organomegaly
Rectal: Deferred by Provider
Genito-urinary: Menjivar
Musculoskeletal: No Clubbing, No Cyanosis and No Edema
Skin: No Rash
Neuro: Awake, Alert and Other (Right facial droop)
Laboratory Results
-
08/13/25 09:18
08/13/25 09:18
Laboratory Results
Lactic Acid 2.3 mmol/L (0.7-2.0) H 08/13/25 09:57
Total Bilirubin 0.5 mg/dl (0.2-1.3) 08/13/25 09:18
AST 20 U/L (17-59) 08/13/25 09:18
ALT 18 U/L (0-50) 08/13/25 09:18
Alkaline Phosphatase 85 U/L (38-126) 08/13/25 09:18
Impression/Plan
-
IMPRESSION:
Acute hypoxic respiratory failure secondary to left lower lobe pneumonia.
Sepsis present on admission (hypoxia, leukocytosis, lactic acidosis, acute kidney injury, hypotension)
Acute kidney injury
Other conditions
Chronic dysphagia with PEG tube placement 07/10/2025
Chronic anemia. Hemoglobin stable at 10 on day of discharge
Seizure disorder, continue Keppra and phenobarbital
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
History of traumatic brain injury status post plate placement
Thoracic and abdominal aortic aneurysm
Chronic kidney disease stage II
Tobacco use disorder
History of bilateral hip replacement
PLAN:
Acute hypoxic respiratory failure, pulse ox of 80% on room air upon presentation secondary to left lower lobe pneumonia
Left lower lobe pneumonia suspect aspiration.
Sepsis secondary to above present on admission.
Progressive deterioration while on oral enteral antibiotics at nursing facility
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
Broaden antibiotics with vancomycin and cefepime pending cultures
Follow sputum culture
Follow blood culture
Oxygen supplementation
Follow response to isotonic IV fluids
Follow CBC/BMP and serial lactic acid level
Aspiration precautions
Chronic dysphagia with PEG tube placement 07/07/2025
Suspect this is multifactorial and in part secondary to TBI/CVA.
No report of PEG tube malfunction at the facility.
Abdominal examination benign with PEG tube in place and intact site.
Will resume tube feeds slowly Jevity 1.5 at 10 mL an hour with slow advance monitoring tolerance
Continue aspiration precautions
Neurologic history including TBI, status post craniectomy with metal plate, CVA with chronic right paresis
Seizure disorder
Continue preadmission regimen including Keppra and phenobarbital, lorazepam.
BPH with chronic bladder outlet obstruction
Indwelling Menjivar catheter
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
Full code
DVT prophylaxis heparin
--- NOTE | 2025-08-13 16:45 | CM ---
Chart reviewed
He is from [facility]
Recent stay at and tx to SNF on 07/12
Spoke to Vicky at [facility]
He was in SNF
w/c bound
Report: [phone]

DCP is to return back to [facility]
CM will continue to follow up for dcp needs
--- NOTE | 2025-08-13 17:03 | EDRN ---
this RN noticed the pts Sp02 drop to 92% on 4L, this RN titrated 02 up to 6L and Sp02 98%, this RN notified provider Dr. Lauren, will continue to monitor the pt closely
[2025-08-13] MEDS: OFIRMEV 100 IV (17:56)
[2025-08-13] MEDS: DUONEB 3 ML INH (20:31)
[2025-08-13] MEDS: SENOKOT 8.6 MG TUBE (21:09)
[2025-08-13] MEDS: KEPPRA 500 MG TUBE (21:10)
[2025-08-13] MEDS: VISBIOME 1 CAP PO (21:10)
[2025-08-13] MEDS: FLOMAX 0.4 MG TUBE (21:11)
[2025-08-13] MEDS: HEPARIN 5000 UNITS SC (21:11)
[2025-08-13] MEDS: LUMINAL 64.8 MG TUBE (21:11)
[2025-08-13] MEDS: STERILE WATER FOR INJECTION 10 ML IV (21:12)
[2025-08-13] MEDS: MAXIPIME 1000 MG IV (21:12)
[2025-08-13] MEDS: VANCOCIN 530 MG IV (21:15)
--- NOTE | 2025-08-13 21:18 | PHA.VAN.IN ---
Assessment
- Assessment
Renal Function: SCR Appears Elevated from baseline
Concomitant Antimicrobials: CEFEPIME
Plan
- Plan
Initial / Loading Dose: VANCOMYCIN 1500 MG IV ~ 2144
Maintenance Regimen: Dosing by random level.
Monitoring: A random level is scheduled 08/14 at 0600 w. am lab. Pharmacy will follow.
Pharmacokinetics Vancomycin I
- -
Patient Age: 80
Patient Sex: Male
Vancomycin Day #: 1
Indication: Pulmonary/Respiratory
Requesting Provider: Dr Leonidas Watson
Height / Weight:
Height 5 ft 4 in
Actual Weight 53.6 kg
Pertinent Past Medical History: Pt presented w. Shortness of breath with hypoxia.
- Vital Signs / Lab Results
Temp Pulse Resp BP Pulse Ox
100.0 F 92 20 127/77 98
08/13/25 19:53 08/13/25 20:36 08/13/25 20:36 08/13/25 19:53 08/13/25 20:36
Lab Results - Hematology
08/13/25
09:18
WBC 18.2 H
Lab Results - Chemistry
08/13/25
09:18
BUN 65 H
Creatinine 1.9 H
Estimated Creat Clear 22
Albumin 3.7
08/13/25
09:57
Lactic Acid 2.3 H
Microbiology Results
08/13/25 09:18 Influenza Types A & B (VIVIENNE) - Final
Nasal Swab Negative for Influenza A & B, NAAT
Negative results must be combined with clinical observations
and patient history.
Nucleic Acid Amplification test (NAAT)performed on the
[facility] platform.
[2025-08-14] MEDS: ROBITUSSIN DM 10 ML TUBE ×2 (03:32→21:22)
[2025-08-14] MEDS: DUONEB 3 ML INH ×3 (07:40→19:11)
[2025-08-14 07:59] LABS: Hematocrit 30.0 % (39.0-52.0); Hemoglobin 9.4 g/dL (13.0-18.0); Mean Corp Hgb Conc. 31.3 g/dL (33.0-37.0); Mean Corpuscular Volume 100.7 fL (80.0-94.0); Platelet Count 167 10^3/uL (130-400); Red Cell Dist. Width 15.2 % (11.5-14.5)
[2025-08-14 08:14] LABS: Nucleated Red Blood Cells % 0.2 % (-)
[2025-08-14 08:24] VITALS: BP 115/52
[2025-08-14 08:24] LABS: Blood Urea Nitrogen 46 mg/dl (9-20); Calcium 8.1 mg/dl (8.4-10.2); Carbon Dioxide 22 mmol/L (22-30); Chloride 121 mmol/L (98-107); Estimated Creatinine Clearance 30 ml/min; Glucose 94 mg/dl (70-99); Potassium 3.7 mmol/L (3.5-5.1); Sodium 149 mmol/L (135-145); eGFR 46.77
[2025-08-14] MEDS: NSS 1000 IV (08:39)
[2025-08-14] MEDS: HEPARIN 5000 UNITS SC ×2 (08:40→20:29)
--- NOTE | 2025-08-14 08:40 | PHA.VAN.FU ---
Vancomycin Assessment / Plan
- Assessment
Renal Function: SCR Decreasing
WBC's are: Trending Down
Concomitant Antimicrobials: cefepime
- Assessment - Therapeutic Drug Monitoring
Random Level: 16.9 - drawn ~10H after 1500mg loading dose
- Dosing Plan
Dosing by Level: Re-dose today (Vanc 750mg)
- Monitoring Plan
Random Level: 08/15 0600
- Follow Up
Pharmacy will continue to follow.
Vancomycin Follow UP
- -
Patient Age: 80
Patient Sex: Male
Vancomycin Day #: 2
Indication: Pulmonary/Respiratory
Requesting Provider: Dr Lauren
Pertinent Antimicrobial Allergies:
NKDA
Height / Weight:
Height 5 ft 4 in
Actual Weight 53.6 kg
Pertinent Past Medical History: CKD, PEG
- Vital Signs / Lab Results
Temp Pulse Resp BP Pulse Ox
99.0 F 94 20 115/52 99
08/14/25 08:24 08/14/25 08:24 08/14/25 08:24 08/14/25 08:24 08/14/25 08:24
Lab Results - Hematology
08/13/25 08/14/25
09:18 07:27
WBC 18.2 H 13.3 H
Lab Results - Chemistry
08/13/25 08/14/25
09:18 07:27
BUN 65 H 46 H
Creatinine 1.9 H 1.5 H
Estimated Creat Clear 22 30
Albumin 3.7
08/13/25 08/13/25
09:57 23:11
Lactic Acid 2.3 H 1.2
Microbiology Results
08/13/25 09:18 Influenza Types A & B (VIVIENNE) - Final
Nasal Swab Negative for Influenza A & B, NAAT
Negative results must be combined with clinical observations
and patient history.
Nucleic Acid Amplification test (NAAT)performed on the
[employer] platform.
Therapeutic Drug Monitoring
Random Vancomycin 16.9 ug/ml 08/14/25 07:27
[2025-08-14] MEDS: PREVACID 15 MG PO (08:41)
[2025-08-14] MEDS: TYLENOL 1000 MG TUBE ×2 (08:41→20:17)
[2025-08-14] MEDS: KEPPRA 500 MG TUBE ×2 (08:41→20:17)
[2025-08-14] MEDS: VISBIOME 1 CAP PO ×2 (08:41→20:17)
[2025-08-14] MEDS: SENOKOT 8.6 MG TUBE ×2 (08:41→20:17)
[2025-08-14] MEDS: MIRALAX 17 GRAMS TUBE (08:41)
[2025-08-14] MEDS: NICODERM TRANSDERMAL 14 MG TRANSDERM (08:41)
[2025-08-14] MEDS: LIDOCAINE 4% PATCH 2 PATCH TOPICAL (08:42)
[2025-08-14] MEDS: MAXIPIME 1000 MG IV ×2 (10:22→21:20)
[2025-08-14] MEDS: STERILE WATER FOR INJECTION 10 ML IV ×2 (10:22→21:20)
[2025-08-14 11:29] VITALS: BMI 20.3
[2025-08-14] MEDS: VANCOCIN 150 IV (12:07)
--- NOTE | 2025-08-14 13:52 | PN.CDI ---
CDI
- -
CDI:
Physician Documentation Request
Admit Date: 08/13/25 16:[address] Lauren,
Sepsis without organ dysfunction is no longer used within our health system. These cases are now coded as the primary infection, not as sepsis.
[facility] is using an adapted version of the 2016 Third International Consensus Definitions for Sepsis and Septic Shock (Sepsis-3) where sepsis is defined as life threatening organ dysfunction caused by a deregulated host response to infection.
Please reference the official [facility] Sepsis Recognition Tool for further information, which is available on the Intranet under Infection Prevention.
Clinical Indicators Include:
08/13, H+P
#Acute hypoxic respiratory failure secondary to left lower lobe pneumonia.
#...Sepsis present on admission (hypoxia, leukocytosis,
#...lactic acidosis, acute kidney injury, hypotension)
#Acute kidney injury
Based on your medical judgment, please review the documentation pertaining to Sepsis due to Pneumonia and further clarify the clinical indicators and any organ dysfunction associated with the diagnosis, if applicable:
Sepsis due to Pneumonia with organ dysfunction of Acute hypoxic respiratory failure, [place]TT[place]EL, Lactic Acidosis
Sepsis ruled out, Pneumonia only
Other(please specify)
Use of terms such as suspected, likely, concern for, or probable (associated with a specific diagnosis that is being evaluated, monitored, or treated as if it exists) are acceptable and can be coded in the inpatient setting when documented at the
time of discharge.
Please use your independent medical judgement in providing your response.
Thank you,
Annabelle Foreman DIRECTOR EPIDEMIOLOGY CCDS
CDI Specialist
Please contact via tiger text
--- NOTE | 2025-08-14 14:00 | PN.CDI ---
CDI
- -
CDI:
Physician Documentation Request
Admit Date: 08/13/25 16:58
Dear Doctor Leonidas,
Please review the following and provide your response in the progress notes.
Clinical Indicators:
Laboratory Tests
08/13/25 08/14/25
09:18 07:27
Sodium 149 H 149 H
Based on the above and your clinical assessment, please clarify the appropriate diagnosis, if significant, that supports the above abnormalities and additional evaluation, monitoring and/or treatment rendered:
Hypernatremia
Abnormal lab value, clinically insignificant
Other(please specify)
Use of terms such as suspected, likely, concern for, or probable (associated with a specific diagnosis that is being evaluated, monitored, or treated as if it exists) are acceptable and can be coded in the inpatient setting, when documented at the
time of discharge.
Thank you,
Annabelle Foreman RN BSN CCDS
CDI Specialist
Please contact via tiger text
Please use your independent medical judgment in providing your response.
--- NOTE | 2025-08-14 14:02 | PN.CDI ---
CDI
- -
CDI:
Physician Documentation Request
Admit Date: 08/13/25 16:58
Dear Doctor Leonidas,
Please review the following and provide your response in the progress notes.
Clinical Indicators:
H+P, 08/13
#Chronic dysphagia with PEG tube placement 07/10/2025
#Left lower lobe pneumonia suspect aspiration.
#Sepsis secondary to above present on admission.
#...Progressive deterioration while on oral enteral antibiotics at nursing facility
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
#...Broaden antibiotics with vancomycin and cefepime pending cultures
#...Follow sputum culture
#...Follow blood culture
Based on the above and your clinical assessment, please clarify in the Progress Notes further specificity regarding the known, suspected or likely type of pneumonia treated (recognizing the specific organism may not be known)?
Aspiration Pneumonia - indicate substance such as food or vomitus, oils or other solids or liquids
Staph Pneumonia - indicate if MRSA or MSSA
Strep Pneumonia - indicate if strep B, strep pneumoniae or other type
Gram negative Pneumonia - indicate if Pseudomonas, Klebsiella or other
Other type
Use of terms such as suspected, likely, concern for, or probable (associated with a specific diagnosis that is being evaluated, monitored, or treated as if it exists) are acceptable and can be coded in the inpatient setting, when documented at the
time of discharge.
Thank you,
Annabelle Foreman RN BSN CCDS
CDI Specialist
Please contact via tiger text
Please use your independent medical judgment in providing your response.
--- NOTE | 2025-08-14 14:14 | W.PN.HOSP.TC ---
Today's Communication/Plan
-
IV antibiotics
IV fluids
Assessment / Plan
Assessment / Plan
IMPRESSION:
Acute hypoxic respiratory failure secondary to left lower lobe pneumonia.
Sepsis present on admission (hypoxia, leukocytosis, lactic acidosis, acute kidney injury, hypotension)
Acute kidney injury
Other conditions
Chronic dysphagia with PEG tube placement 07/10/2025
Chronic anemia. Hemoglobin stable at 10 on day of discharge
Seizure disorder, continue Keppra and phenobarbital
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
History of traumatic brain injury status post plate placement
Thoracic and abdominal aortic aneurysm
Chronic kidney disease stage II
Tobacco use disorder
History of bilateral hip replacement
PLAN:
Acute hypoxic respiratory failure, pulse ox of 80% on room air upon presentation secondary to left lower lobe pneumonia
Left lower lobe pneumonia suspect aspiration.
Sepsis secondary to above present on admission.
Progressive deterioration while on enteral antibiotics at nursing facility
MRSA screen negative
Initially on vancomycin and cefepime. Narrow antibiotics to cefepime alone pending final culture
Follow sputum culture
Follow blood culture
Oxygen supplementation
Acute kidney injury secondary to sepsis and hypotension
Improving with IV fluid bolus.
Hypotension resolved
Improved lactic acidosis
Remains hypernatremic. Transition to hypotonic fluids. Continue free water repletion via feeding tube. Follow BMP.
Chronic dysphagia with PEG tube placement 07/07/2025
Suspect this is multifactorial and in part secondary to TBI/CVA.
No report of PEG tube malfunction at the facility.
Abdominal examination benign with PEG tube in place and intact site.
Will resume tube feeds slowly Jevity 1.5 at 10 mL an hour with slow advance monitoring tolerance
Continue aspiration precautions
Neurologic history including TBI, status post craniectomy with metal plate, CVA with chronic right paresis
Seizure disorder
Continue preadmission regimen including Keppra and phenobarbital, lorazepam.
BPH with chronic bladder outlet obstruction
Indwelling Menjivar catheter
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
Full code
DVT prophylaxis heparin
Anticipated Discharge: 24 - 48 hours
Subjective/Interval History
-
Date of Service: August 14, 2025
Objective Data
-
Labs:
Laboratory Results
08/14/25
07:27
WBC 13.3 H
Hgb 9.4 L
Hct 30.0 L
Plt Count 167
Sodium 149 H
Potassium 3.7
Chloride 121 H
Carbon Dioxide 22
BUN 46 H
Creatinine 1.5 H
Glucose 94
Calcium 8.1 L
Vital Signs:
Vital Signs
Temp Pulse Resp BP Pulse Ox
99.0 F 80 18 115/52 99
08/14/25 08:24 08/14/25 13:25 08/14/25 13:25 08/14/25 08:24 08/14/25 08:24
I&O
08/13/25 08/14/25 08/15/25
06:59 06:59 06:59
Intake Total 1000 / 1000
Output Total 890 / 890 150 / 150
Balance 110 / 110 -150 / -150
Physical Exam
-
General: Well Developed and No Apparent Distress
HEENT: Normocephalic, Atraumatic and Moist Mucous Membranes
Respiratory: Rhonchi
Cardiac: Regular Rhythm and S1/S2; Negative Murmur, Rub or Gallop
GI: Soft, Nontender, Nondistended, Normal Bowel Sounds and Peg Tube; Negative Organomegaly
Rectal: Deferred by Provider
Genito-urinary: Menjivar
Musculoskeletal: No Clubbing, No Cyanosis and No Edema
Skin: Negative Rash
Neuro: Awake, Alert, Oriented and Other (Right facial droop)
[2025-08-14] MEDS: 0.45%NACL 1000 IV (14:32)
--- NOTE | 2025-08-14 15:19 | PTCARENOTE ---
Patient's tube feed up titrated to 30 ml/hr, thus uptitrating 20 ml per this shift. Goal tube feed rate is 50. Patient should reach goal, if tolerating feeds, by tomorrow, 08/15.
[2025-08-14 16:16] VITALS: BP 102/56
[2025-08-14] MEDS: REMOVE LIDOCAINE PATCH 2 PATCH REMOVE (20:34)
[2025-08-14] MEDS: LUMINAL 64.8 MG TUBE (21:20)
[2025-08-14] MEDS: FLOMAX 0.4 MG TUBE (21:20)
[2025-08-14 23:10] VITALS: BP 88/55
[2025-08-14 23:26] VITALS: BP 83/45
[2025-08-14 23:42] VITALS: BP 110/62
[2025-08-14 23:43] VITALS: BP 114/61
--- NOTE | 2025-08-14 23:55 | PTCARENOTE ---
PCT informed RN of BP 88/55 HR 75 @ 2310. Repeat BP at 2325 was 83/45 HR 75. RR 24, pulse ox 97% on RA. Patient was sleeping at this time.
Patient woke up more and BP did come up. BP was 110/62 manually and 114/61 using automatic BP machine at 2340. Patient was asymptomatic. OIL PIPE INSPECTOR made aware. PRN Midodrine ordered for SPB <95.
[2025-08-15] MEDS: 0.45%NACL 1000 IV ×2 (01:14→14:53)
--- NOTE | 2025-08-15 03:07 | PTCARENOTE ---
Patient's tube feed increased from 30mls/hr to goal rate of 50mls/hr per HCP order.
[2025-08-15 07:00] VITALS: BP 131/74
[2025-08-15] MEDS: DUONEB 3 ML INH ×3 (07:51→19:19)
[2025-08-15] MEDS: NICODERM TRANSDERMAL 14 MG TRANSDERM (08:41)
[2025-08-15] MEDS: KEPPRA 500 MG TUBE ×2 (08:42→19:59)
[2025-08-15] MEDS: LIDOCAINE 4% PATCH 2 PATCH TOPICAL (08:42)
[2025-08-15] MEDS: TYLENOL 1000 MG TUBE ×2 (08:42→19:59)
[2025-08-15] MEDS: MIRALAX 17 GRAMS TUBE (08:42)
[2025-08-15] MEDS: SENOKOT 8.6 MG TUBE ×2 (08:42→19:58)
[2025-08-15] MEDS: VISBIOME PO ×3 (08:42→20:00)
[2025-08-15] MEDS: PREVACID 15 MG PO (08:42)
[2025-08-15] MEDS: HEPARIN 5000 UNITS SC ×2 (08:42→20:00)
[2025-08-15 09:16] LABS: Hematocrit 26.9 % (39.0-52.0); Hemoglobin 8.5 g/dL (13.0-18.0); Mean Corp Hgb Conc. 31.6 g/dL (33.0-37.0); Mean Corpuscular Volume 98.9 fL (80.0-94.0); Nucleated Red Blood Cells % 0 % (-); Platelet Count 153 10^3/uL (130-400); Red Cell Dist. Width 14.9 % (11.5-14.5)
[2025-08-15 09:21] VITALS: BP 108/50; BP 98/52; O2SAT 95
[2025-08-15 09:22] VITALS: BP 108/50; BP 98/52; PULSE 101; PULSE 99; O2SAT 95
[2025-08-15 09:33] LABS: Blood Urea Nitrogen 38 mg/dl (9-20); Calcium 8.0 mg/dl (8.4-10.2); Carbon Dioxide 21 mmol/L (22-30); Chloride 118 mmol/L (98-107); Estimated Creatinine Clearance 32 ml/min; Glucose 103 mg/dl (70-99); Potassium 3.6 mmol/L (3.5-5.1); Sodium 146 mmol/L (135-145); eGFR 50.81
[2025-08-15] MEDS: MAXIPIME 1000 MG IV (10:47)
[2025-08-15] MEDS: STERILE WATER FOR INJECTION 10 ML IV (10:47)
--- NOTE | 2025-08-15 13:44 | W.PN.HOSP.TC ---
Today's Communication/Plan
-
Narrow antibiotics to Unasyn
Continue hypotonic IV fluids
Follow BMP
Continue tube feeds with aspiration precautions
PT assessment recommends return to group home facility once medically stable
Assessment / Plan
Assessment / Plan
IMPRESSION:
Acute hypoxic respiratory failure secondary to left lower lobe pneumonia.
Aspiration pneumonia
Sepsis present on admission (hypoxia, leukocytosis, lactic acidosis, acute kidney injury, hypotension) secondary to aspiration pneumonia
Acute kidney injury
Other conditions
Chronic dysphagia with PEG tube placement 07/10/2025
Chronic anemia. Hemoglobin stable at 10 on day of discharge
Seizure disorder, continue Keppra and phenobarbital
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
History of traumatic brain injury status post plate placement
Thoracic and abdominal aortic aneurysm
Chronic kidney disease stage II
Tobacco use disorder
History of bilateral hip replacement
PLAN:
Acute hypoxic respiratory failure, pulse ox of 80% on room air upon presentation secondary to left lower lobe pneumonia
Left lower lobe pneumonia suspect aspiration.
Sepsis secondary to above present on admission.
Progressive deterioration while on enteral antibiotics at nursing facility
MRSA screen negative
Initially on vancomycin and cefepime. Cultures negative to date. Narrow antibiotics to Unasyn
Attempt to wean off oxygen as tolerates
Acute kidney injury secondary to sepsis and hypotension
Hypernatremia
CKD stage II
Creatinine improved 1.9�1.4 with volume expansion
Hypotension resolved
Improved lactic acidosis
Remains hypernatremic. Transition to hypotonic fluids. Continue free water repletion via feeding tube. Follow BMP.
Chronic anemia with macrocytosis
Hemoglobin globin trending down from 10.5-8.5 secondary to dilution. No evidence for acute blood loss. Monitor further.
Update B12 and iron levels
Chronic dysphagia with PEG tube placement 07/07/2025
Suspect this is multifactorial and in part secondary to TBI/CVA.
No report of PEG tube malfunction at the facility.
Abdominal examination benign with PEG tube in place and intact site.
Will resume tube feeds slowly Jevity 1.5 at 10 mL an hour with slow advance monitoring tolerance
Continue aspiration precautions
Neurologic history including TBI, status post craniectomy with metal plate, CVA with chronic right paresis
Seizure disorder
Continue preadmission regimen including Keppra and phenobarbital, lorazepam.
BPH with chronic bladder outlet obstruction
Indwelling Emnjivar catheter
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
Full code
DVT prophylaxis heparin
Anticipated Discharge: 24 - 48 hours
Subjective/Interval History
-
Date of Service: August 15, 2025
Objective Data
-
Labs:
Laboratory Results
08/15/25
08:07
WBC 10.0
Hgb 8.5 L
Hct 26.9 L
Plt Count 153
Sodium 146 H
Potassium 3.6
Chloride 118 H
Carbon Dioxide 21 L
BUN 38 H
Creatinine 1.4 H
Glucose 103 H
Calcium 8.0 L
Vital Signs:
Vital Signs
Temp Pulse Resp BP Pulse Ox
98.4 F 78 16 131/74 98
08/15/25 07:00 08/15/25 12:54 08/15/25 12:54 08/15/25 07:00 08/15/25 07:00
I&O
08/14/25 08/15/25 08/16/25
06:59 06:59 06:59
Intake Total 1315 / 1315 4840 / 4840
Output Total 575 / 575 925 / 925
Balance 740 / 740 3915 / 3915
Physical Exam
-
General: Well Developed and No Apparent Distress
HEENT: Normocephalic, Atraumatic and Moist Mucous Membranes
Respiratory: Rhonchi
Cardiac: Regular Rhythm and S1/S2; Negative Murmur, Rub or Gallop
GI: Soft, Nontender, Nondistended, Normal Bowel Sounds and Peg Tube; Negative Organomegaly
Rectal: Deferred by Provider
Genito-urinary: Menjivar
Musculoskeletal: No Clubbing, No Cyanosis and No Edema
Skin: Negative Rash
Neuro: Awake, Alert, Oriented and Other (Right facial droop)
[2025-08-15 14:23] LABS: Iron 29 ug/dl (49-181)
[2025-08-15 14:32] LABS: Total Iron Binding Capacity 159 ug/dl (261-462)
[2025-08-15 14:54] LABS: TSH 2.73 uIU/ml (0.47-4.68)
[2025-08-15 15:00] VITALS: BP 123/61
[2025-08-15 15:13] LABS: Vitamin B12 699 pg/ml (239-931)
[2025-08-15] MEDS: UNASYN IV (16:54)
[2025-08-15] MEDS: REMOVE LIDOCAINE PATCH 1 PATCH REMOVE (19:59)
[2025-08-15] MEDS: LUMINAL 64.8 MG TUBE (21:35)
[2025-08-15] MEDS: FLOMAX 0.4 MG TUBE (21:35)
[2025-08-15 23:00] VITALS: BP 102/51
[2025-08-16] MEDS: DUONEB 3 ML INH ×4 (03:20→19:19)
[2025-08-16] MEDS: UNASYN IV ×4 (03:28→22:06)
--- NOTE | 2025-08-16 03:35 | W.PN.UPDATE ---
Update Note
Progress Note Update
This am pt more tachypneic and rhoncherous sounding. 02 96% 2L. Pt keeps scooting himself down in the bed, likely aspirating more. Will have RN pause TF until pt more settled. PT does have ativan prn.
[2025-08-16] MEDS: ATIVAN 0.5 MG TUBE (04:43)
[2025-08-16] MEDS: VISBIOME PO ×2 (08:02→19:52)
[2025-08-16] MEDS: SENOKOT 8.6 MG TUBE (08:03)
[2025-08-16] MEDS: LIDOCAINE 4% PATCH 2 PATCH TOPICAL (08:03)
[2025-08-16] MEDS: TYLENOL 1000 MG TUBE ×2 (08:03→19:50)
[2025-08-16] MEDS: PREVACID 15 MG PO (08:03)
[2025-08-16] MEDS: HEPARIN 5000 UNITS SC ×2 (08:03→19:46)
[2025-08-16] MEDS: KEPPRA 500 MG TUBE (08:03)
[2025-08-16] MEDS: MIRALAX 17 GRAMS TUBE (08:04)
[2025-08-16] MEDS: NICODERM TRANSDERMAL 14 MG TRANSDERM (08:04)
[2025-08-16 08:09] VITALS: BP 106/55
[2025-08-16 08:15] LABS: Hematocrit 26.5 % (39.0-52.0); Hemoglobin 8.3 g/dL (13.0-18.0); Mean Corp Hgb Conc. 31.3 g/dL (33.0-37.0); Mean Corpuscular Volume 96.7 fL (80.0-94.0); Nucleated Red Blood Cells % 0 % (-); Platelet Count 165 10^3/uL (130-400); Red Cell Dist. Width 14.6 % (11.5-14.5)
[2025-08-16] MEDS: 0.45%NACL 1000 IV (08:20)
[2025-08-16 08:43] LABS: Blood Urea Nitrogen 30 mg/dl (9-20); Calcium 7.9 mg/dl (8.4-10.2); Carbon Dioxide 21 mmol/L (22-30); Chloride 116 mmol/L (98-107); Estimated Creatinine Clearance 37 ml/min; Glucose 113 mg/dl (70-99); Potassium 3.4 mmol/L (3.5-5.1); Sodium 143 mmol/L (135-145); eGFR > 60.00
--- NOTE | 2025-08-16 09:00 | PTCARENOTE ---
Upon assessment, patient is short of breath, tachypneic, unable to speak clearly with very garbled/muffled speech. O2 saturation 96 % on 2 liters nasal cannula. Patient does appear more restless and confused. Tube feeds on hold. This RN notified
doctor suggesting a VBG and portable chest x-ray. Per MD, after evaluation, patient looks stable, he has a poor baseline. No new orders placed. MD did speak with pharmacy in regard to patient's dosing of Keppra.
--- NOTE | 2025-08-16 09:33 | W.PN.HOSP.TC ---
Today's Communication/Plan
-
.
Assessment / Plan
Assessment / Plan
Physical Exam
-
General: chronically ill looking. not in Distress
HEENT: Moist Mucous Membranes
Respiratory: no Rhonchi
Cardiac: Regular Rhythm and S1/S2
GI: Soft, Nontender, Nondistended, Normal Bowel Sounds and Peg Tube;
Genito-urinary: Menjivar
Musculoskeletal: No Edema
Skin: Negative Rash
Neuro: Awake, Alert, Oriented and Other (Right facial droop) but lethargic after ativan
Psych: calm
IMPRESSION:
Acute hypoxic respiratory failure secondary to left lower lobe pneumonia.
Aspiration pneumonia
Sepsis present on admission (hypoxia, leukocytosis, lactic acidosis, acute kidney injury, hypotension) secondary to aspiration pneumonia
Acute kidney injury
Other conditions
Chronic dysphagia with PEG tube placement 07/10/2025
Chronic anemia. Hemoglobin stable at 10 on day of discharge
Seizure disorder, continue Keppra and phenobarbital
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
History of traumatic brain injury status post plate placement
Thoracic and abdominal aortic aneurysm
Chronic kidney disease stage II
Tobacco use disorder
History of bilateral hip replacement
PLAN:
Acute hypoxic respiratory failure, pulse ox of 80% on room air upon presentation secondary to left lower lobe pneumonia
Left lower lobe pneumonia suspect aspiration.
Sepsis secondary to above present on admission.
Progressive deterioration while on enteral antibiotics at nursing facility
MRSA screen negative
Initially on vancomycin and cefepime. Cultures negative to date. Narrow antibiotics to Unasyn
Attempt to wean off oxygen as tolerates
Acute kidney injury secondary to sepsis and hypotension
Hypernatremia
CKD stage II
Creatinine improved 1.9�1.4 with volume expansion
Hypotension resolved
Improved lactic acidosis
Remains hypernatremic. Transition to hypotonic fluids. Continue free water repletion via feeding tube. Follow BMP.
Chronic anemia with macrocytosis
Hemoglobin globin trending down from 10.5-8.5 secondary to dilution. No evidence for acute blood loss. Monitor further.
Update B12 and iron levels
Chronic dysphagia with PEG tube placement 07/07/2025
Suspect this is multifactorial and in part secondary to TBI/CVA.
No report of PEG tube malfunction at the facility.
Abdominal examination benign with PEG tube in place and intact site.
Will resume tube feeds slowly Jevity 1.5 at 10 mL an hour with slow advance monitoring tolerance
Continue aspiration precautions
Neurologic history including TBI, status post craniectomy with metal plate, CVA with chronic right paresis
Seizure disorder
Continue preadmission regimen including Keppra and phenobarbital, lorazepam.
BPH with chronic bladder outlet obstruction
Indwelling Menjivar catheter
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
Full code. Patient has been DNR/DNI in previous admissions and living wishes.
DVT prophylaxis heparin
Total time spent to see the patient, examined the patient, reviewed data and lab result, discuss treatment plan with patient, nursing staff around 45 minutes
Anticipated Discharge: > 48 hours
Subjective/Interval History
-
Date of Service: August 16, 2025
was restless over night, was given Ativan
Objective Data
-
Labs:
Laboratory Results
08/16/25
07:39
WBC 10.4
Hgb 8.3 L
Hct 26.5 L
Plt Count 165
Sodium 143
Potassium 3.4 L
Chloride 116 H
Carbon Dioxide 21 L
BUN 30 H
Creatinine 1.2
Glucose 113 H
Calcium 7.9 L
Vital Signs:
Vital Signs
Temp Pulse Resp BP Pulse Ox
98.9 F 106 18 106/55 96
08/16/25 08:09 08/16/25 08:09 08/16/25 08:09 08/16/25 08:09 08/16/25 08:09
I&O
08/15/25 08/16/25 08/17/25
06:59 06:59 06:59
Intake Total 4840 / 4840 3308 / 3308
Output Total 925 / 925 1025 / 1025
Balance 3915 / 3915 2283 / 2283
--- NOTE | 2025-08-16 15:00 | PTCARENOTE ---
Patient with persistent SOB and restlessness; upon assessment, patient presenting with mucoid plug inhibiting airway. Mucoid plug removed by this RN, assisted with suction by Oxana Watson RN. Patient states he feels relief, speech more clear, and
breathing less labored. Will continue with QID suction mouth care and monitoring.
[2025-08-16 15:46] VITALS: BP 131/69
[2025-08-16] MEDS: SENOKOT TUBE (19:49)
[2025-08-16] MEDS: REMOVE LIDOCAINE PATCH 2 PATCH REMOVE (19:50)
[2025-08-16] MEDS: KEPPRA 750 MG TUBE (20:03)
[2025-08-16] MEDS: LUMINAL 64.8 MG TUBE (22:05)
[2025-08-16] MEDS: FLOMAX 0.4 MG TUBE (22:05)
[2025-08-16] MEDS: ATIVAN 0.25 MG TUBE (22:05)
[2025-08-16 23:03] VITALS: BP 101/69
[2025-08-17] VITALS (87 sets, daily range): BP systolic 60–151; BP diastolic 39–79
--- NOTE | 2025-08-17 01:15 | RR ---
Rapid Response called when pt. became restless, , SOB, R.N. suctioning several mucus plugs without relief, pt. desating quickly 70% down to 38%, nonrebreather placed on pt. at 95%, pt. had agonal breathing, had a pulse, placed on monitor ST, pt.
transferred to ICU.
--- NOTE | 2025-08-17 01:53 | W.PN.UPDATE ---
Update Note
Progress Note Update
Rapid response called, patient hypoxic and unresponsive. Patient on non-rebreather, pulsox 75%, respiratory at bedside, began ambu bag, sat raised to 97%. Decision made to move to ICU and intubate. Labs drawn and sent. Called during rapid
response, updated on events, confirmed patient full code status and intubation. in agreement with intubation.
Patient transferred to ICU, intubated. Called to confirm patient was intubated d/t severe respiratory status and transferred to ICU.
[2025-08-17 01:56] LABS: Hematocrit 31.9 % (39.0-52.0); Hemoglobin 10.2 g/dL (13.0-18.0); Mean Corp Hgb Conc. 32.0 g/dL (33.0-37.0); Mean Corpuscular Volume 97.3 fL (80.0-94.0); Platelet Count 258 10^3/uL (130-400); Red Cell Dist. Width 14.6 % (11.5-14.5)
--- NOTE | 2025-08-17 01:56 | W.PN.ANESINT ---
Anesthesia Intubation Note
- Intubation Note
Intubation Note:
Diagnosis: Called to ICU 3359 for Respiratory distress
Blade: glidescope #4
Tube Size: 8.0 ETT hi lo
Depth: 22 cm at right lip
Side Taped:
Drugs Used: propofol 50 mg IV
Grade View: Grade 1 view
EtCO2 Present: +ETCO2 via stat cap
Atraumatic: yes
Attempts: 1
Insertion Start and Stop Time: 4954-4540
SaO2 Pre: 100%
SaO2 Post: 100%
Glidescope Used: yes
Other Airway Adjustments:
Pre-Oxygenated: ambu bag by respiratory on arrival to ICU room
Portable Chest X-Ray: pending
RSI:
Suctioned: suctioned for copious thick secretions, secretions noted to be mostly occluding airway
Bilateral Breath Sounds Confirmed: yes +BBS
Vent Settings: see ICU/respiratory flow sheet.
Left in care of ICU team in stable condition.
Settings per ___Attending Physician
--- NOTE | 2025-08-17 02:00 | W.PN.UPDATE ---
Update Note
Progress Note Update
08/17/2025
0150- Patient transferred to ICU after rapid response for unresponsiveness and hypoxemia. Patient being bagged with ambu bag to maintain oxygen saturation >92%. Patient visibly in distress, reportedly had desaturated with non rebreather to 70% and
was struggling to maintain airway. High risk for aspiration and mucous plugging. Concern for mucous plugging secretions very thick and unable to suction. SURVEILLANCE SPECIALIST called for intubation and patient intubated without event. Patient was suctioned for
very thick copious amount of secretions. Patient's updated by the House EXTERMINATOR HELPERCAT Kulkarni. Chest xray to confirm chest xray ordered, ETT was retracted. Light sedation protocol ordered : propofol gtt and fentanyl gtt/prn. Discussed plan of
care with RN.
[2025-08-17] MEDS: SUBLIMAZE 50 MCG IV ×3 (02:03→16:09)
[2025-08-17] MEDS: DIPRIVAN 100 IV ×3 (02:04→20:08)
[2025-08-17] MEDS: SUBLIMAZE 100 IV ×2 (02:04→18:58)
[2025-08-17 02:08] LABS: ALT (SGPT) 20 U/L (0-50); AST (SGOT) 23 U/L (17-59); Albumin 3.3 g/dl (3.5-5.0); Alkaline Phosphatase 99 U/L (38-126); Blood Urea Nitrogen 26 mg/dl (9-20); Calcium 8.2 mg/dl (8.4-10.2); Carbon Dioxide 22 mmol/L (22-30); Chloride 112 mmol/L (98-107); Estimated Creatinine Clearance 37 ml/min; Glucose 183 mg/dl (70-99); Potassium 3.9 mmol/L (3.5-5.1); Sodium 144 mmol/L (135-145); Total Protein 6.4 g/dl (6.3-8.2); eGFR > 60.00
[2025-08-17 03:08] LABS: Troponin I 0.075 ng/ml
[2025-08-17 03:41] LABS: Magnesium 2.3 mg/dl (1.6-2.3); Triglycerides 115 mg/dl (10-149)
[2025-08-17] MEDS: UNASYN IV ×4 (04:18→22:32)
[2025-08-17 04:20] LABS: INR 1.01; PT 13.4 Sec (11.4-14.6)
[2025-08-17 04:21] LABS: APTT 37.0 Sec (23.4-35.0)
[2025-08-17 05:03] LABS: B.E. -0.8 mmol/L; HCO3 23.4 mmol/L (21-28); O2 Saturation % 100.0 % (94-98); PCO2 36 mmHg (35-48); PO2 165 mmHg (83-108)
[2025-08-17] MEDS: NOVOLOG FLEXPEN-LOW RESISTANCE SC ×4 (05:25→23:38)
[2025-08-17 05:36] LABS: Glucose - Point of Care 117 mg/dl (70-99)
--- NOTE | 2025-08-17 06:13 | PTCARENOTE ---
RR called to 4W, pt with increased secretions and agonal breathing, respiratory bagging pt at bedside 98% pulse ox, transferred to ICU, pt now intubated and sedated, family was notified by ENROLLMENT SERVICES DEAN, labs, EKG and cxr completed per orders.
[2025-08-17] MEDS: PREVACID 15 MG TUBE (07:27)
[2025-08-17] MEDS: KEPPRA 750 MG TUBE ×2 (07:27→20:04)
[2025-08-17] MEDS: LIDOCAINE 4% PATCH 2 PATCH TOPICAL (07:28)
[2025-08-17] MEDS: VISBIOME 1 CAP PO (07:28)
[2025-08-17] MEDS: TYLENOL 1000 MG TUBE ×2 (07:28→20:05)
[2025-08-17] MEDS: MIRALAX 17 GRAMS TUBE (07:28)
[2025-08-17] MEDS: SENOKOT 8.6 MG TUBE ×2 (07:28→22:32)
[2025-08-17] MEDS: DUONEB 3 ML INH ×3 (07:29→19:40)
[2025-08-17] MEDS: HEPARIN 5000 UNITS SC ×2 (07:29→20:04)
[2025-08-17] MEDS: NICODERM TRANSDERMAL 14 MG TRANSDERM (07:29)
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
--- NOTE | 2025-08-17 09:00 | PTCARENOTE ---
Rec'd pt at 0700. Pt sedate on Prop/Fent gtts on vent. Opens eyes to verbal stimuli, restless when awake. Monitor SR/SBR. Levophed gtts titrated to keep MAP>65. Lungs CTA, oral pharyngeal suctioned for moderate amts thick palacios secretions. Pox 98% on
40% fio2. +BS, abd soft/nt. PEG in place, clamped. Menjivar draining yellow urine. Pt turned/repositioned.
--- NOTE | 2025-08-17 10:45 | W.PN.HOSP.TC ---
Today's Communication/Plan
-
.
Assessment / Plan
Assessment / Plan
Physical Exam
-
General: chronically ill looking. Sedated & intubated.
HEENT: ET tube
Respiratory: generally clear, limited, no wheezes.
Cardiac: Regular Rhythm and S1/S2
GI: Soft, Nontender, Nondistended, Normal Bowel Sounds and Peg Tube;
Genito-urinary: Menjivar
Musculoskeletal: No Edema
Skin: Negative Rash
Neuro: Sedated.
Psych: calm
IMPRESSION:
08/17
An event of respiratory arrest, with unresponsiveness and hypoxia
s/p intubation and transferred to ICU
Acute hypoxic respiratory failure/ lactic acidosis,
Currently receiving IV sedatives in ICU including fentanyl & Propofol
Pressure support with Levophed gtt
Lactic acid normal now
CXR showing interstitial edema, Start on Lasix with pressure support
Order echo
trend troponin. Positive troponin c/w non ischemic myocardial injury likely due to hypoxia. Add aspirin
Repeat blood cultures
Culture of respiratory secretions
F/w ICU doctor recommendations
Acute hypoxic respiratory failure secondary to left lower lobe pneumonia.
Aspiration pneumonia
Sepsis present on admission (hypoxia, leukocytosis, lactic acidosis, acute kidney injury, hypotension) secondary to aspiration pneumonia
Acute kidney injury
Other conditions
Chronic dysphagia with PEG tube placement 07/10/2025
Chronic anemia. Hemoglobin stable at 10 on day of discharge
Seizure disorder, continue Keppra and phenobarbital
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
History of traumatic brain injury status post plate placement
Thoracic and abdominal aortic aneurysm
Chronic kidney disease stage II
Tobacco use disorder
History of bilateral hip replacement
PLAN:
Acute hypoxic respiratory failure, pulse ox of 80% on room air upon presentation secondary to left lower lobe pneumonia
Left lower lobe pneumonia suspect aspiration.
Sepsis secondary to above present on admission.
Progressive deterioration while on enteral antibiotics at nursing facility
MRSA screen negative
Initially on vancomycin and cefepime. Cultures negative to date. Narrowed antibiotics to Unasyn
Hypokalemia, resolved
Hypernatremia, resolved.
Acute kidney injury secondary to sepsis and hypotension
Hypernatremia
CKD stage II
Creatinine improved 1.9�1.4 with volume expansion
Hypotension resolved
Improved lactic acidosis
Remains hypernatremic. Transition to hypotonic fluids. Continue free water repletion via feeding tube. Follow BMP.
Chronic anemia with macrocytosis
Hemoglobin globin trending down from 10.5-8.5 secondary to dilution. No evidence for acute blood loss. Monitor further.
Update B12 and iron levels
Chronic dysphagia with PEG tube placement 07/07/2025
Suspect this is multifactorial and in part secondary to TBI/CVA.
No report of PEG tube malfunction at the facility.
Abdominal examination benign with PEG tube in place and intact site.
Will resume tube feeds slowly Jevity 1.5 at 10 mL an hour with slow advance monitoring tolerance
Continue aspiration precautions
Neurologic history including TBI, status post craniectomy with metal plate, CVA with chronic right paresis
Seizure disorder
Continue preadmission regimen including Keppra and phenobarbital, lorazepam.
BPH with chronic bladder outlet obstruction
Indwelling Menjivar catheter
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
Full code. Patient has been DNR/DNI in previous admissions.
DVT prophylaxis heparin, GI prophyalxis with Prevacid.
Total time spent to see the patient, examined the patient, reviewed data and lab result, discuss treatment plan with ICU doctor, nursing staff around 59 minutes
Anticipated Discharge: > 48 hours
Subjective/Interval History
-
Date of Service: August 17, 2025
Events over night noted
He is sedated and intubated now
No fevers
Objective Data
-
Labs:
Laboratory Results
12/08/17/25 08/17/25
01:30 01:36 03:52
WBC 16.6 H
Hgb 10.2 L D
Hct 31.9 L
Plt Count 258 D
PT 13.4
INR 1.01
APTT 37.0 H
HCO3 Cancelled
Sodium 144
Potassium 3.9
Chloride 112 H
Carbon Dioxide 22
BUN 26 H
Creatinine 1.2
Glucose 183 H
Calcium 8.2 L
Total Bilirubin 0.3
AST 23
ALT 20
Alkaline Phosphatase 99
08/17/25
04:45
WBC
Hgb
Hct
Plt Count
PT
INR
APTT
HCO3 23.4
Sodium
Potassium
Chloride
Carbon Dioxide
BUN
Creatinine
Glucose
Calcium
Total Bilirubin
AST
ALT
Alkaline Phosphatase
Vital Signs:
Vital Signs
Temp Pulse Resp BP Pulse Ox
98.4 F 60 14 123/67 98
08/17/25 07:35 08/17/25 10:00 08/17/25 10:00 08/17/25 10:00 08/17/25 10:00
I&O
08/16/25 08/17/25 08/18/25
06:59 06:59 06:59
Intake Total 3308 / 3308 23.0 / 23.0
Output Total 1025 / 1025
Balance 2283 / 2283 23.0 / 23.0
[2025-08-17 11:42] LABS: Glycohemoglobin (HgbA1c) 5.9 % (4.0-5.9)
[2025-08-17 12:03] LABS: Glucose - Point of Care 108 mg/dl (70-99)
[2025-08-17 14:40] LABS: Troponin I 0.117 ng/ml
[2025-08-17 17:23] LABS: Glucose - Point of Care 94 mg/dl (70-99)
[2025-08-17] MEDS: LASIX 40 MG IV (20:03)
[2025-08-17] MEDS: LUMINAL 64.8 MG TUBE (20:06)
[2025-08-17] MEDS: FLOMAX 0.4 MG TUBE (20:06)
[2025-08-17] MEDS: LEVOPHED 250 IV (20:08)
--- NOTE | 2025-08-17 20:25 | PTCARENOTE ---
Patient intubated and sedated at start of shift. Opens eyes at times, does not seem to respond appropriately to commands at this time. NSR to SB on the monitor with PACs noted. Positive pulses, no edema. Lung sounds diminished but clear throughout.
Pox 98-100% on a/c 14/450/40/5, patient tolerating well. TF on hold at this time, tube patent and intact. Patient with chronic green on admission, green catheter changed this shift d/to foul odor. Patient tolerated well. Patient continues on IV gtts
to right a/c; fentanyl, levo, propofol. All IV sites patent. Will continue to monitor patient closely.
[2025-08-17] MEDS: ROBITUSSIN 200 MG TUBE (22:32)
[2025-08-17 23:34] LABS: Glucose - Point of Care 103 mg/dl (70-99)
[2025-08-18] VITALS (40 sets, daily range): BP systolic 92–149; BP diastolic 40–113
--- NOTE | 2025-08-18 00:45 | PTCARENOTE ---
Patient requiring increase in fentanyl and propofol for RASS 2+, positive effects noted. Menjivar catheter draining light yellow urine with some sedimentation noted. 1x dose iv lasix administered earlier this shift as ordered. Patient started on
Robitussin QID via peg. Will continue to monitor patient closely.
[2025-08-18] MEDS: SUBLIMAZE 50 MCG IV (00:46)
[2025-08-18] MEDS: DUONEB 3 ML INH ×4 (02:20→20:13)
[2025-08-18] MEDS: MUCOMYST 20% 2 ML INH ×4 (02:20→20:14)
[2025-08-18 03:22] LABS: Hematocrit 28.6 % (39.0-52.0); Hemoglobin 9.4 g/dL (13.0-18.0); Mean Corp Hgb Conc. 32.9 g/dL (33.0-37.0); Mean Corpuscular Volume 95.3 fL (80.0-94.0); Platelet Count 222 10^3/uL (130-400); Red Cell Dist. Width 14.6 % (11.5-14.5)
[2025-08-18] MEDS: UNASYN IV ×4 (03:25→23:02)
[2025-08-18 03:44] LABS: ALT (SGPT) 34 U/L (0-50); AST (SGOT) 43 U/L (17-59); Albumin 3.0 g/dl (3.5-5.0); Alkaline Phosphatase 75 U/L (38-126); Blood Urea Nitrogen 27 mg/dl (9-20); Calcium 8.0 mg/dl (8.4-10.2); Carbon Dioxide 23 mmol/L (22-30); Chloride 114 mmol/L (98-107); Estimated Creatinine Clearance 41 ml/min; Glucose 101 mg/dl (70-99); Potassium 3.7 mmol/L (3.5-5.1); Sodium 143 mmol/L (135-145); Total Protein 6.1 g/dl (6.3-8.2); eGFR > 60.00
[2025-08-18 04:00] LABS: Troponin I 0.055 ng/ml
[2025-08-18] MEDS: DIPRIVAN 100 IV (04:01)
[2025-08-18 05:17] LABS: B.E. 0.8 mmol/L; HCO3 25.3 mmol/L (21-28); O2 Saturation % 99.1 % (94-98); PCO2 39 mmHg (35-48); PO2 85 mmHg (83-108)
--- NOTE | 2025-08-18 05:17 | PTCARENOTE ---
Assessment unchanged. Patient continues on Levo, Fentanyl and Propofol gtts. Hygiene provided. Will continue to monitor patient closely.
[2025-08-18 05:27] LABS: Glucose - Point of Care 104 mg/dl (70-99)
[2025-08-18] MEDS: NOVOLOG FLEXPEN-LOW RESISTANCE SC ×3 (05:27→17:50)
[2025-08-18] MEDS: SUBLIMAZE 100 IV (07:18)
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
[2025-08-18] MEDS: ROBITUSSIN 200 MG TUBE ×4 (07:19→23:02)
[2025-08-18] MEDS: KEPPRA 750 MG TUBE ×2 (07:19→20:08)
[2025-08-18] MEDS: HEPARIN 5000 UNITS SC ×2 (07:20→20:09)
[2025-08-18] MEDS: VISBIOME 1 CAP TUBE (07:20)
[2025-08-18] MEDS: NICODERM TRANSDERMAL 14 MG TRANSDERM (07:20)
[2025-08-18] MEDS: PREVACID 15 MG TUBE (07:20)
[2025-08-18] MEDS: TYLENOL 1000 MG TUBE ×2 (07:20→20:08)
[2025-08-18] MEDS: MIRALAX 17 GRAMS TUBE (07:21)
--- NOTE | 2025-08-18 08:59 | PTCARENOTE ---
Patient intubated/sedated at beginning of shift. Vent settings 14/450/40/5. Fent gtt off at 0800 for SAT. Prop weaned to 10mcg/min at 0800. Levo gtt off at 0810 , MAP 70. Patient opens eyes, nods appropriately, active ROM in upper extremities.
Patient pulling at gown/tubes/wires. B/L wrist restraints in place. SBT started at 0830. Prop infusion off at 0845. Oral care provided. Patient suctioned, minimal secretions. NSR on monitor, HR 70-80. No edema, weak pedal pulses. Meds given
through PEG tube. No residual noted. Tube feeds remain on hold. 18F green in place, draining clear yellow urine. Green care given. Remains on IV unasyn Q6H.
[2025-08-18 11:30] LABS: Glucose - Point of Care 104 mg/dl (70-99)
--- NOTE | 2025-08-18 12:56 | W.PN.HOSP.TC ---
Today's Communication/Plan
-
Wean off sedation
Wean off norepinephrine
SBT with hope to extubate
Echo
Monitor volume status closely
IV antibiotics for aspiration
Total Critical Care Time_45____ minutes. I was immediately available to the patient and staff. I personally examined, reviewed labs, diagnostic images/reports, interpretations, treatment plans, discussed patient care with other providers and
family or caregivers (if patient is unable to make decisions), entered orders as appropriate and documented the medical record.
Assessment / Plan
Assessment / Plan
IMPRESSION:
Acute hypoxic respiratory failure secondary to left lower lobe pneumonia.
Aspiration pneumonia
Sepsis present on admission (hypoxia, leukocytosis, lactic acidosis, acute kidney injury, hypotension) secondary to aspiration pneumonia
Acute kidney injury
Other conditions
Chronic dysphagia with PEG tube placement 07/10/2025
Chronic anemia. Hemoglobin stable at 10 on day of discharge
Seizure disorder, continue Keppra and phenobarbital
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
History of traumatic brain injury status post plate placement
Thoracic and abdominal aortic aneurysm
Chronic kidney disease stage II
Tobacco use disorder
History of bilateral hip replacement
PLAN:
Acute hypoxic respiratory failure, pulse ox of 80% on room air upon presentation secondary to left lower lobe pneumonia
Left lower lobe pneumonia suspect aspiration.
Sepsis secondary to above present on admission.
Progressive deterioration while on enteral antibiotics at nursing facility
MRSA screen negative
Initially on vancomycin and cefepime. Cultures negative to date. Narrow antibiotics to Unasyn
Had significant improvement while on antibiotics and mucolytics, although with new decompensation and acute respiratory failure on 08/17 requiring transfer to ICU and intubation
VDRF suspect secondary to mucous plugging.
Overall improved while on the vent.
Wean off sedation
Wean off norepinephrine
SBT
Concern for component of CHF contributing to respiratory failure.
Imaging with interstitial pattern.
Elevated pro CHF BNP.
Acute nonischemic troponin elevation.
Echo pending
Status post single dose of Lasix provided on 08/17. Follow response.
Acute kidney injury secondary to sepsis and hypotension
Hypernatremia
CKD stage II
Creatinine improved 1.9�1.1 with volume expansion
Hypotension resolved
Improved lactic acidosis
Remains hypernatremic. Transition to hypotonic fluids. Continue free water repletion via feeding tube. Follow BMP.
Chronic anemia with macrocytosis
Hemoglobin globin trending down from 10.5-8.5 secondary to dilution. No evidence for acute blood loss. Monitor further.
Update B12 and iron levels
Chronic dysphagia with PEG tube placement 07/07/2025
Suspect this is multifactorial and in part secondary to TBI/CVA.
No report of PEG tube malfunction at the facility.
Abdominal examination benign with PEG tube in place and intact site.
Will resume tube feeds slowly Jevity 1.5 at 10 mL an hour with slow advance monitoring tolerance
Continue aspiration precautions
Neurologic history including TBI, status post craniectomy with metal plate, CVA with chronic right paresis
Seizure disorder
Continue preadmission regimen including Keppra and phenobarbital, lorazepam.
BPH with chronic bladder outlet obstruction
Indwelling Menjivar catheter
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
Full code
DVT prophylaxis heparin
Anticipated Discharge: > 48 hours
Subjective/Interval History
-
Date of Service: August 18, 2025
Objective Data
-
Labs:
Laboratory Results
08/18/25 08/18/25
03:00 04:54
WBC 9.9
Hgb 9.4 L
Hct 28.6 L
Plt Count 222
HCO3 25.3
Sodium 143
Potassium 3.7
Chloride 114 H
Carbon Dioxide 23
BUN 27 H
Creatinine 1.1
Glucose 101 H
Calcium 8.0 L
Total Bilirubin 0.4
AST 43
ALT 34
Alkaline Phosphatase 75
Vital Signs:
Vital Signs
Temp Pulse Resp BP Pulse Ox
97.6 F 84 14 122/63 100
08/18/25 11:00 08/18/25 11:00 08/18/25 11:00 08/18/25 11:00 08/18/25 12:00
I&O
08/17/25 08/18/25 08/19/25
06:59 06:59 06:59
Intake Total 1046.2 / 1046.2 120 / 120
Output Total 2475 / 2475 325 / 325
Balance -1428.8 / -1428.8 -205 / -205
Physical Exam
-
General: Well Developed and No Apparent Distress; Negative Respiratory Distress
HEENT: Normocephalic, Atraumatic, Moist Mucous Membranes and Other (Endotracheal tube with clear secretions)
Respiratory: Rhonchi and Decreased Breath Sounds; Negative Wheezes
Cardiac: Regular Rhythm and S1/S2; Negative Murmur, Rub or Gallop
GI: Soft, Nontender, Nondistended, Normal Bowel Sounds and Peg Tube; Negative Organomegaly
Rectal: Deferred by Provider
Musculoskeletal: No Clubbing, No Cyanosis and No Edema
Skin: Negative Rash
Neuro: Awake, Alert and Oriented
--- NOTE | 2025-08-18 13:00 | PTCARENOTE ---
Pt extubated to 5LNC at 12:55. VSS. Care ongoing.
[2025-08-18] MEDS: KCL 270 MEQ IV (15:13)
--- NOTE | 2025-08-18 15:15 | PTCARENOTE ---
Tube feeds resumed @15:15. Jevity 1.5 @50ml/hr, 25ml/hr flush.
--- NOTE | 2025-08-18 16:24 | CM ---
F/U: This CM started working with this patient today. Patient still has to wean off sedation, wean off norepinephrine, SBT with hope to extubate, echo, and IV Abx, thus not ready. Patient is a bed hold at [facility]- return referral made on 08/15.
PLAN: Return to [facility].
[2025-08-18 17:50] LABS: Glucose - Point of Care 80 mg/dl (70-99)
[2025-08-18] MEDS: SENOKOT 8.6 MG TUBE (23:00)
[2025-08-18] MEDS: LUMINAL 64.8 MG TUBE (23:00)
[2025-08-18] MEDS: FLOMAX 0.4 MG TUBE (23:02)
[2025-08-19] VITALS (9 sets, daily range): BP systolic 111–155; BP diastolic 57–76; PULSE 93; O2SAT 94
[2025-08-19] MEDS: MUCOMYST 20% 2 ML INH ×3 (00:59→20:21)
[2025-08-19] MEDS: DUONEB 3 ML INH ×5 (00:59→23:42)
[2025-08-19 01:02] LABS: Glucose - Point of Care 72 mg/dl (70-99)
[2025-08-19] MEDS: NOVOLOG FLEXPEN-LOW RESISTANCE SC ×4 (01:07→17:44)
--- NOTE | 2025-08-19 01:18 | PTCARENOTE ---
Pt agitated--yelling and cursing at staff--during incontinence care. Following incontinence care, pt continues to be restless and agitated and attempting to get out of bed. PRN ativan given via PEG. Safe environment maintained, call gupta within
reach.
[2025-08-19] MEDS: ATIVAN 0.25 MG TUBE ×2 (01:24→23:33)
[2025-08-19 04:18] LABS: Hematocrit 27.0 % (39.0-52.0); Hemoglobin 8.6 g/dL (13.0-18.0); Mean Corp Hgb Conc. 31.9 g/dL (33.0-37.0); Mean Corpuscular Volume 96.8 fL (80.0-94.0); Nucleated Red Blood Cells % 0 % (-); Platelet Count 210 10^3/uL (130-400); Red Cell Dist. Width 14.7 % (11.5-14.5)
[2025-08-19 04:38] LABS: Blood Urea Nitrogen 24 mg/dl (9-20); Calcium 8.0 mg/dl (8.4-10.2); Carbon Dioxide 25 mmol/L (22-30); Chloride 114 mmol/L (98-107); Estimated Creatinine Clearance 41 ml/min; Glucose 100 mg/dl (70-99); Potassium 3.8 mmol/L (3.5-5.1); Sodium 143 mmol/L (135-145); eGFR > 60.00
[2025-08-19] MEDS: UNASYN IV ×4 (04:38→21:06)
[2025-08-19 05:51] LABS: Glucose - Point of Care 106 mg/dl (70-99)
[2025-08-19] MEDS: PREVACID 15 MG TUBE (08:43)
[2025-08-19] MEDS: TYLENOL 1000 MG TUBE ×2 (08:43→21:02)
[2025-08-19] MEDS: ROBITUSSIN 200 MG TUBE ×4 (08:44→21:11)
[2025-08-19] MEDS: MIRALAX 17 GRAMS TUBE (08:44)
[2025-08-19] MEDS: KEPPRA 750 MG TUBE ×2 (08:44→21:02)
[2025-08-19] MEDS: NICODERM TRANSDERMAL TRANSDERM (08:44)
[2025-08-19] MEDS: VISBIOME 1 CAP TUBE (08:44)
[2025-08-19] MEDS: HEPARIN 5000 UNITS SC ×2 (08:44→21:01)
--- NOTE | 2025-08-19 10:52 | CM ---
CM continues to follow for discharge planning. Pt has a bed hold at [facility] when he is ready for discharge.
Plan: Discharge to [facility] when medically ready.
--- NOTE | 2025-08-19 11:40 | W.PN.HOSP.TC ---
Today's Communication/Plan
-
Aspiration precautions
Continue Unasyn with plan to transition to Augmentin in 24 to 40 hours if stable respiratory status
Secretions clearance
Continue tube feeds
PT assessment
Assessment / Plan
Assessment / Plan
IMPRESSION:
Acute hypoxic respiratory failure secondary to left lower lobe pneumonia.
Aspiration pneumonia
Sepsis present on admission (hypoxia, leukocytosis, lactic acidosis, acute kidney injury, hypotension) secondary to aspiration pneumonia
Acute kidney injury
Other conditions
Chronic dysphagia with PEG tube placement 07/10/2025
Chronic anemia. Hemoglobin stable at 10 on day of discharge
Seizure disorder, continue Keppra and phenobarbital
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
History of traumatic brain injury status post plate placement
Thoracic and abdominal aortic aneurysm
Chronic kidney disease stage II
Tobacco use disorder
History of bilateral hip replacement
PLAN:
Acute hypoxic respiratory failure, pulse ox of 80% on room air upon presentation secondary to left lower lobe pneumonia
Left lower lobe pneumonia suspect aspiration.
Sepsis secondary to above present on admission.
Patient with chronic silent aspiration and mucous plugging.
MRSA screen negative
Initially on vancomycin and cefepime. Cultures negative to date. Narrow antibiotics to Unasyn
Had significant improvement while on antibiotics and mucolytics, although with new decompensation and acute respiratory failure on 08/17 requiring transfer to ICU and intubation
VDRF suspect secondary to mucous plugging.
Overall improved while on the vent and extubated on 08/18
Remains hemodynamically stable.
Continue aspiration precautions
Continue and complete total of 10-day course of antibiotics. Would consider transition to enteral in 24 to 48 hours if stable respiratory status.
Concern for component of CHF versus volume overload, versus acute lung injury contributing to respiratory failure.
Imaging with interstitial pattern.
Elevated pro CHF BNP.
Acute transient nonischemic troponin elevation with acute myocardial injury secondary to critical illness/hypoxia.
Echocardiogram with preserved biventricular function no significant valvular abnormalities
Status post single dose of Lasix provided on 08/17.
Monitor volume status closely
Acute kidney injury secondary to sepsis and hypotension
Hypernatremia
CKD stage II
Creatinine improved 1.9�1.1 with volume expansion
Hypotension resolved
Improved lactic acidosis
Remains hypernatremic. Transition to hypotonic fluids. Continue free water repletion via feeding tube. Follow BMP.
Chronic anemia with macrocytosis
Hemoglobin globin trending down from 10.5-8.5 secondary to dilution. No evidence for acute blood loss. Monitor further.
Iron deficiency. Initiated on IV iron on 08/19
Chronic dysphagia with PEG tube placement 07/07/2025
Suspect this is multifactorial and in part secondary to TBI/CVA.
No report of PEG tube malfunction at the facility.
Abdominal examination benign with PEG tube in place and intact site.
Will resume tube feeds slowly Jevity 1.5 at 10 mL an hour with slow advance monitoring tolerance
Continue aspiration precautions
Neurologic history including TBI, status post craniectomy with metal plate, CVA with chronic right paresis
Seizure disorder
Continue preadmission regimen including Keppra and phenobarbital, lorazepam.
BPH with chronic bladder outlet obstruction
Indwelling Menjivar catheter
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
Full code
DVT prophylaxis heparin
Anticipated Discharge: 24 - 48 hours
Subjective/Interval History
-
Date of Service: August 19, 2025
Objective Data
-
Labs:
Laboratory Results
08/19/25
04:02
WBC 10.0
Hgb 8.6 L
Hct 27.0 L
Plt Count 210
Sodium 143
Potassium 3.8
Chloride 114 H
Carbon Dioxide 25
BUN 24 H
Creatinine 1.1
Glucose 100 H
Calcium 8.0 L
Vital Signs:
Vital Signs
Temp Pulse Resp BP Pulse Ox
98.6 F 102 15 133/69 94
08/19/25 08:00 08/19/25 11:02 08/19/25 11:02 08/19/25 08:00 08/19/25 04:00
I&O
08/18/25 08/19/25 08/20/25
06:59 06:59 06:59
Intake Total 1046.2 / 1046.2 990 / 990 350 / 350
Output Total 2475 / 2475 1450 / 1450 300 / 300
Balance -1428.8 / -1428.8 -460 / -460 50 / 50
Physical Exam
-
General: Well Developed and No Apparent Distress; Negative Respiratory Distress
HEENT: Normocephalic, Atraumatic, Moist Mucous Membranes and Other (Endotracheal tube with clear secretions)
Respiratory: Rhonchi and Decreased Breath Sounds; Negative Wheezes
Cardiac: Regular Rhythm and S1/S2; Negative Murmur, Rub or Gallop
GI: Soft, Nontender, Nondistended, Normal Bowel Sounds and Peg Tube; Negative Organomegaly
Rectal: Deferred by Provider
Musculoskeletal: No Clubbing, No Cyanosis and No Edema
Skin: Negative Rash
Neuro: Awake, Alert and Oriented
[2025-08-19 12:01] LABS: Glucose - Point of Care 135 mg/dl (70-99)
--- NOTE | 2025-08-19 14:26 | PTCARENOTE ---
Attempted to call spouse to notify of room change. No answer. Both home and cell do not have option to leave a voicemail.
--- NOTE | 2025-08-19 14:51 | TRANSFER ---
patient arrived from ICU via patient bed. VSS. Tube feed running. Rectal trumpet in place and draining. Menjivar draining clear yellow urine. Aspiration precautions maintained as evidenced by HOB being > 30 degrees. Patient oriented to room. Call gupta
and personal belongings within reach.
[2025-08-19] MEDS: FERRLECIT 110 MG IV (15:39)
--- NOTE | 2025-08-19 16:42 | PTCARENOTE ---
Patient removed rectal trumpet. 200 ml of stool output recorded.
[2025-08-19 17:37] LABS: Glucose - Point of Care 102 mg/dl (70-99)
[2025-08-19] MEDS: SENOKOT 8.6 MG TUBE (21:03)
[2025-08-19] MEDS: FLOMAX 0.4 MG TUBE (21:03)
[2025-08-19] MEDS: LUMINAL 64.8 MG TUBE (21:06)
[2025-08-19 23:58] LABS: Glucose - Point of Care 170 mg/dl (70-99)
[2025-08-20] MEDS: NOVOLOG FLEXPEN-LOW RESISTANCE 1 UNITS SC (00:33)
[2025-08-20 03:00] VITALS: BP 150/71
[2025-08-20] MEDS: UNASYN IV ×4 (04:32→21:35)
[2025-08-20 07:00] VITALS: BP 122/66
[2025-08-20 07:28] LABS: Glucose - Point of Care 107 mg/dl (70-99)
[2025-08-20] MEDS: NOVOLOG FLEXPEN-LOW RESISTANCE SC ×4 (07:28→23:26)
[2025-08-20 07:58] LABS: Hematocrit 28.7 % (39.0-52.0); Hemoglobin 9.2 g/dL (13.0-18.0); Mean Corp Hgb Conc. 32.1 g/dL (33.0-37.0); Mean Corpuscular Volume 97.6 fL (80.0-94.0); Nucleated Red Blood Cells % 0 % (-); Platelet Count 225 10^3/uL (130-400); Red Cell Dist. Width 14.7 % (11.5-14.5)
[2025-08-20] MEDS: DUONEB 3 ML INH ×3 (08:03→20:28)
[2025-08-20] MEDS: MUCOMYST 20% 2 ML INH ×2 (08:04→20:28)
[2025-08-20] MEDS: VISBIOME 1 CAP TUBE (08:44)
[2025-08-20 08:45] LABS: Glucose - Point of Care 107 mg/dl (70-99)
[2025-08-20] MEDS: PREVACID 15 MG TUBE (08:45)
[2025-08-20] MEDS: TYLENOL 1000 MG TUBE ×2 (08:45→21:31)
[2025-08-20] MEDS: NICODERM TRANSDERMAL 14 MG TRANSDERM (08:46)
[2025-08-20] MEDS: HEPARIN 5000 UNITS SC ×2 (08:46→21:31)
[2025-08-20] MEDS: KEPPRA 750 MG TUBE ×2 (08:48→21:31)
[2025-08-20] MEDS: ROBITUSSIN 200 MG TUBE ×4 (08:50→21:35)
[2025-08-20 08:57] LABS: Blood Urea Nitrogen 19 mg/dl (9-20); Calcium 8.2 mg/dl (8.4-10.2); Carbon Dioxide 21 mmol/L (22-30); Chloride 112 mmol/L (98-107); Estimated Creatinine Clearance 41 ml/min; Glucose 85 mg/dl (70-99); Potassium 3.9 mmol/L (3.5-5.1); Sodium 140 mmol/L (135-145); Triglycerides 126 mg/dl (10-149); eGFR > 60.00
[2025-08-20 11:00] VITALS: BP 133/65
[2025-08-20 11:46] LABS: Glucose - Point of Care 121 mg/dl (70-99)
--- NOTE | 2025-08-20 14:36 | W.PN.HOSP.TC ---
Today's Communication/Plan
-
Stable respiratory status.
Afebrile
Cognitive status at the baseline
Currently on Unasyn. Could transition to Augmentin at discharge. Plan is to complete 14-day course of antibiotics.
Continue aggressive airway clearance
Tube feeds at the goal with good tolerance
Medically optimized for discharge pending long-term facility placement
Discussed with case management
Assessment / Plan
Assessment / Plan
IMPRESSION:
Acute hypoxic respiratory failure secondary to left lower lobe pneumonia.
Aspiration pneumonia
Sepsis present on admission (hypoxia, leukocytosis, lactic acidosis, acute kidney injury, hypotension) secondary to aspiration pneumonia
Acute kidney injury
Other conditions
Chronic dysphagia with PEG tube placement 07/10/2025
Chronic anemia. Hemoglobin stable at 10 on day of discharge
Seizure disorder, continue Keppra and phenobarbital
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
History of traumatic brain injury status post plate placement
Thoracic and abdominal aortic aneurysm
Chronic kidney disease stage II
Tobacco use disorder
History of bilateral hip replacement
PLAN:
Acute hypoxic respiratory failure, pulse ox of 80% on room air upon presentation secondary to left lower lobe pneumonia
Left lower lobe pneumonia suspect aspiration.
Sepsis secondary to above present on admission.
Patient with chronic silent aspiration and mucous plugging.
MRSA screen negative
Initially on vancomycin and cefepime. Cultures negative to date. Narrow antibiotics to Unasyn
Had significant improvement while on antibiotics and mucolytics, although with new decompensation and acute respiratory failure on 08/17 requiring transfer to ICU and intubation
VDRF suspect secondary to mucous plugging.
Overall improved while on the vent and extubated on 08/18
Remains hemodynamically stable.
Continue aspiration precautions
Continue and complete total of 10-day course of antibiotics. Would consider transition to enteral in 24 to 48 hours if stable respiratory status.
Concern for component of CHF versus volume overload, versus acute lung injury contributing to respiratory failure.
Imaging with interstitial pattern.
Elevated pro CHF BNP.
Acute transient nonischemic troponin elevation with acute myocardial injury secondary to critical illness/hypoxia.
Echocardiogram with preserved biventricular function no significant valvular abnormalities
Status post single dose of Lasix provided on 08/17.
Monitor volume status closely
Acute kidney injury secondary to sepsis and hypotension
Hypernatremia
CKD stage II
Creatinine improved 1.9�1.1 with volume expansion
Hypotension resolved
Improved lactic acidosis
Remains hypernatremic. Transition to hypotonic fluids. Continue free water repletion via feeding tube. Follow BMP.
Chronic anemia with macrocytosis
Hemoglobin globin trending down from 10.5-8.5 secondary to dilution. No evidence for acute blood loss. Monitor further.
Iron deficiency. Initiated on IV iron on 08/19
Chronic dysphagia with PEG tube placement 07/07/2025
Suspect this is multifactorial and in part secondary to TBI/CVA.
No report of PEG tube malfunction at the facility.
Abdominal examination benign with PEG tube in place and intact site.
Will resume tube feeds slowly Jevity 1.5 at 10 mL an hour with slow advance monitoring tolerance
Continue aspiration precautions
Neurologic history including TBI, status post craniectomy with metal plate, CVA with chronic right paresis
Seizure disorder
Continue preadmission regimen including Keppra and phenobarbital, lorazepam.
BPH with chronic bladder outlet obstruction
Indwelling Menjivar catheter
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
Full code
DVT prophylaxis heparin
Anticipated Discharge: Within 24 hours
Subjective/Interval History
-
Date of Service: August 20, 2025
Objective Data
-
Labs:
Laboratory Results
08/20/25
07:34
WBC 8.2
Hgb 9.2 L
Hct 28.7 L
Plt Count 225
Sodium 140
Potassium 3.9
Chloride 112 H
Carbon Dioxide 21 L
BUN 19
Creatinine 1.1
Glucose 85
Calcium 8.2 L
Vital Signs:
Vital Signs
Temp Pulse Resp BP Pulse Ox
98.0 F 75 20 133/65 97
08/20/25 11:00 08/20/25 11:00 08/20/25 11:00 08/20/25 11:00 08/20/25 11:00
I&O
08/19/25 08/20/25 08/21/25
06:59 06:59 06:59
Intake Total 990 / 990 1200 / 1200
Output Total 1450 / 1450 1999 / 1999
Balance -460 / -460 -800 / -800
Physical Exam
-
General: Well Developed and No Apparent Distress; Negative Respiratory Distress
HEENT: Normocephalic, Atraumatic, Moist Mucous Membranes and Other (Endotracheal tube with clear secretions)
Respiratory: Rhonchi and Decreased Breath Sounds; Negative Wheezes
Cardiac: Regular Rhythm and S1/S2; Negative Murmur, Rub or Gallop
GI: Soft, Nontender, Nondistended, Normal Bowel Sounds and Peg Tube; Negative Organomegaly
Rectal: Deferred by Provider
Musculoskeletal: No Clubbing, No Cyanosis and No Edema
Skin: Negative Rash
Neuro: Awake, Alert and Oriented
--- NOTE | 2025-08-20 14:56 | CM ---
Addendum entered by Aysha Robles 08/21/25 11:18:
Pending SNF auth from [facility]-[id number]
Original Note:
CM working on return to [facility] SNF for patient. Confirmed with Angela at [facility] that bed is available for patient. Will need SNF authorization from insurance. SNF request and clinical information has been submitted to [facility]- awaiting a
determination. Updated patient and his . IMM given.
Plan: transfer to [facility] once insurance authorization obtained
[2025-08-20 15:00] VITALS: BP 127/62
[2025-08-20] MEDS: FERRLECIT 110 MG IV (15:31)
[2025-08-20 18:01] LABS: Glucose - Point of Care 125 mg/dl (70-99)
[2025-08-20 19:00] VITALS: BP 169/75
[2025-08-20] MEDS: SENOKOT 8.6 MG TUBE (21:32)
[2025-08-20] MEDS: FLOMAX 0.4 MG TUBE (21:32)
[2025-08-20] MEDS: LUMINAL 64.8 MG TUBE (21:35)
[2025-08-20 23:00] VITALS: BP 109/59
[2025-08-20 23:25] LABS: Glucose - Point of Care 121 mg/dl (70-99)
[2025-08-21] VITALS (7 sets, daily range): BP systolic 117–147; BP diastolic 63–86; PULSE 92–94; O2SAT 95
[2025-08-21] MEDS: UNASYN IV ×3 (03:14→15:21)
[2025-08-21 06:00] LABS: Glucose - Point of Care 117 mg/dl (70-99)
[2025-08-21] MEDS: NOVOLOG FLEXPEN-LOW RESISTANCE SC ×3 (06:18→18:18)
[2025-08-21] MEDS: DUONEB 3 ML INH ×3 (07:11→21:57)
[2025-08-21] MEDS: MUCOMYST 20% 2 ML INH ×2 (07:11→21:57)
[2025-08-21] MEDS: VISBIOME 1 CAP TUBE (08:15)
[2025-08-21] MEDS: TYLENOL 1000 MG TUBE ×2 (08:15→20:22)
[2025-08-21] MEDS: PREVACID 15 MG TUBE (08:16)
[2025-08-21] MEDS: HEPARIN 5000 UNITS SC ×2 (08:16→20:22)
[2025-08-21] MEDS: NICODERM TRANSDERMAL 14 MG TRANSDERM (08:18)
[2025-08-21] MEDS: KEPPRA 750 MG TUBE ×2 (08:19→20:22)
[2025-08-21] MEDS: ROBITUSSIN 200 MG TUBE ×3 (08:21→18:20)
[2025-08-21 08:43] LABS: Hematocrit 29.3 % (39.0-52.0); Hemoglobin 9.5 g/dL (13.0-18.0); Mean Corp Hgb Conc. 32.4 g/dL (33.0-37.0); Mean Corpuscular Volume 95.4 fL (80.0-94.0); Nucleated Red Blood Cells % 0 % (-); Platelet Count 269 10^3/uL (130-400); Red Cell Dist. Width 14.9 % (11.5-14.5)
[2025-08-21 09:12] LABS: Blood Urea Nitrogen 19 mg/dl (9-20); Calcium 8.2 mg/dl (8.4-10.2); Carbon Dioxide 22 mmol/L (22-30); Chloride 108 mmol/L (98-107); Estimated Creatinine Clearance 45 ml/min; Glucose 96 mg/dl (70-99); Potassium 4.2 mmol/L (3.5-5.1); Sodium 137 mmol/L (135-145); eGFR > 60.00
[2025-08-21 11:55] LABS: Glucose - Point of Care 115 mg/dl (70-99)
[2025-08-21] MEDS: FERRLECIT 110 MG IV (13:27)
--- NOTE | 2025-08-21 14:43 | W.PN.HOSP.TC ---
Today's Communication/Plan
-
Discharge
Assessment / Plan
Assessment / Plan
IMPRESSION:
Acute hypoxic respiratory failure secondary to left lower lobe pneumonia.
Aspiration pneumonia
Sepsis present on admission (hypoxia, leukocytosis, lactic acidosis, acute kidney injury, hypotension) secondary to aspiration pneumonia
Acute kidney injury
Other conditions
Chronic dysphagia with PEG tube placement 07/10/2025
Chronic anemia. Hemoglobin stable at 10 on day of discharge
Seizure disorder, continue Keppra and phenobarbital
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
History of traumatic brain injury status post plate placement
Thoracic and abdominal aortic aneurysm
Chronic kidney disease stage II
Tobacco use disorder
History of bilateral hip replacement
PLAN:
Acute hypoxic respiratory failure, pulse ox of 80% on room air upon presentation secondary to left lower lobe pneumonia
Left lower lobe pneumonia suspect aspiration.
Sepsis secondary to above present on admission.
Patient with chronic silent aspiration and mucous plugging.
MRSA screen negative
Initially on vancomycin and cefepime. Cultures negative to date. Narrow antibiotics to Unasyn
Had significant improvement while on antibiotics and mucolytics, although with new decompensation and acute respiratory failure on 08/17 requiring transfer to ICU and intubation
VDRF suspect secondary to mucous plugging.
Overall improved while on the vent and extubated on 08/18
Remains hemodynamically stable.
Continue aspiration precautions
Continue and complete total of 14-day course of antibiotics. Would consider transition to enteral in 24 to 48 hours if stable respiratory status.
Concern for component of CHF versus volume overload, versus acute lung injury contributing to respiratory failure.
Imaging with interstitial pattern.
Elevated pro CHF BNP.
Acute transient nonischemic troponin elevation with acute myocardial injury secondary to critical illness/hypoxia.
Echocardiogram with preserved biventricular function no significant valvular abnormalities
Status post single dose of Lasix provided on 08/17.
Monitor volume status closely
Acute kidney injury secondary to sepsis and hypotension
Hypernatremia
CKD stage II
Creatinine improved 1.9�1.1 with volume expansion
Hypotension resolved
Improved lactic acidosis
Remains hypernatremic. Transition to hypotonic fluids. Continue free water repletion via feeding tube. Follow BMP.
Chronic anemia with macrocytosis
Hemoglobin globin trending down from 10.5-8.5 secondary to dilution. No evidence for acute blood loss. Monitor further.
Iron deficiency. Initiated on IV iron on 08/19
Chronic dysphagia with PEG tube placement 07/07/2025
Suspect this is multifactorial and in part secondary to TBI/CVA.
No report of PEG tube malfunction at the facility.
Abdominal examination benign with PEG tube in place and intact site.
Will resume tube feeds slowly Jevity 1.5 at 10 mL an hour with slow advance monitoring tolerance
Continue aspiration precautions
Neurologic history including TBI, status post craniectomy with metal plate, CVA with chronic right paresis
Seizure disorder
Continue preadmission regimen including Keppra and phenobarbital, lorazepam.
BPH with chronic bladder outlet obstruction
Indwelling Menjivar catheter
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
Full code
DVT prophylaxis heparin
Anticipated Discharge: Today
Subjective/Interval History
-
Date of Service: August 21, 2025
Objective Data
-
Labs:
Laboratory Results
08/21/25
07:01
WBC 8.0
Hgb 9.5 L
Hct 29.3 L
Plt Count 269
Sodium 137
Potassium 4.2
Chloride 108 H
Carbon Dioxide 22
BUN 19
Creatinine 1.0
Glucose 96
Calcium 8.2 L
Vital Signs:
Vital Signs
Temp Pulse Resp BP Pulse Ox
97.7 F 90 18 117/63 95
08/21/25 11:50 08/21/25 12:39 08/21/25 12:39 08/21/25 11:50 08/21/25 11:50
I&O
08/20/25 08/21/25 08/22/25
06:59 06:59 06:59
Intake Total 1200 / 1200 1610 / 1610
Output Total 1999 1015 / 1015
Balance -800 / -800 595 / 595
Physical Exam
-
General: Well Developed and No Apparent Distress; Negative Respiratory Distress
HEENT: Normocephalic, Atraumatic, Moist Mucous Membranes and Other (Endotracheal tube with clear secretions)
Respiratory: Rhonchi and Decreased Breath Sounds; Negative Wheezes
Cardiac: Regular Rhythm and S1/S2; Negative Murmur, Rub or Gallop
GI: Soft, Nontender, Nondistended, Normal Bowel Sounds and Peg Tube; Negative Organomegaly
Rectal: Deferred by Provider
Musculoskeletal: No Clubbing, No Cyanosis and No Edema
Skin: Negative Rash
Neuro: Awake, Alert and Oriented
--- NOTE | 2025-08-21 15:01 | CM ---
Skilled rehab approval received for [facility].
Authorization # [id number]
start date 08/21/25, NRD 08/28/25
updates to [phone]
--- NOTE | 2025-08-21 15:07 | CM ---
Patient is being transferred to [facility] today. CM obtained SNF auth from [facility].Discussed transfer with patient and his .
SNF auth:[id number] (approved 7 days 08/21- 08/28)
[facility]
#for Report: [phone]
fax#[phone]
Plan: transfer to [facility] today [facility]
--- NOTE | 2025-08-21 15:17 | W.DCSUMMARY ---
Discharge Summary
Discharge Data
Date of Admission: 08/13/25
Date of Discharge: 08/21/25
Total time spent discharging patient (in min): 45
-
Pending Results: No
Hospital Course
IMPRESSION:
Acute hypoxic respiratory failure secondary to left lower lobe pneumonia.
Aspiration pneumonia
Sepsis present on admission (hypoxia, leukocytosis, lactic acidosis, acute kidney injury, hypotension) secondary to aspiration pneumonia
Acute kidney injury
Other conditions
Chronic dysphagia with PEG tube placement 07/10/2025
Chronic anemia. Hemoglobin stable at 10 on day of discharge
Seizure disorder, continue Keppra and phenobarbital
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
History of traumatic brain injury status post plate placement
Thoracic and abdominal aortic aneurysm
Chronic kidney disease stage II
Tobacco use disorder
History of bilateral hip replacement
PLAN:
Acute hypoxic respiratory failure, pulse ox of 80% on room air upon presentation secondary to left lower lobe pneumonia
Left lower lobe pneumonia suspect aspiration.
Sepsis secondary to above present on admission.
Patient with chronic silent aspiration and mucous plugging.
MRSA screen negative
Initially on vancomycin and cefepime. Cultures negative to date. Narrow antibiotics to Unasyn
Had significant improvement while on antibiotics and mucolytics, although with new decompensation and acute respiratory failure on 08/17 requiring transfer to ICU and intubation
VDRF suspect secondary to mucous plugging.
Overall improved while on the vent and extubated on 08/18
Remains hemodynamically stable.
Continue aspiration precautions
Continue and complete total of 14-day course of antibiotics.
Concern for component of CHF versus volume overload, versus acute lung injury contributing to respiratory failure.
Imaging with interstitial pattern.
Elevated pro CHF BNP.
Acute transient nonischemic troponin elevation with acute myocardial injury secondary to critical illness/hypoxia.
Echocardiogram with preserved biventricular function no significant valvular abnormalities
Status post single dose of Lasix provided on 08/17.
Monitor volume status closely
No additional diuresis required
Acute kidney injury secondary to sepsis and hypotension
Hypernatremia
CKD stage II
Creatinine improved 1.9�1.1 with volume expansion
Hypotension resolved
Improved lactic acidosis
Remains hypernatremic. Transition to hypotonic fluids. Continue free water repletion via feeding tube. Follow BMP.
Chronic anemia with macrocytosis
Hemoglobin globin trending down from 10.5-8.5 secondary to dilution. No evidence for acute blood loss. Monitor further.
Iron deficiency. Initiated on IV iron on 08/19
Chronic dysphagia with PEG tube placement 07/07/2025
Suspect this is multifactorial and in part secondary to TBI/CVA.
No report of PEG tube malfunction at the facility.
Abdominal examination benign with PEG tube in place and intact site.
Will resume tube feeds slowly Jevity 1.5 at 10 mL an hour with slow advance monitoring tolerance
Continue aspiration precautions
Neurologic history including TBI, status post craniectomy with metal plate, CVA with chronic right paresis
Seizure disorder
Continue preadmission regimen including Keppra and phenobarbital, lorazepam.
BPH with chronic bladder outlet obstruction
Indwelling Menjivar catheter
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
Full code
Disposition: Return back to prison facility at [facility]
Discharge Plan
-
Patient Disposition: Retirement/SNF
Discharge Diagnosis/Procedures: IMPRESSION:
Acute hypoxic respiratory failure secondary to left lower lobe pneumonia.
Aspiration pneumonia
Sepsis present on admission (hypoxia, leukocytosis, lactic acidosis, acute kidney injury, hypotension) secondary to aspiration pneumonia
Acute kidney injury
Other conditions
Chronic dysphagia with PEG tube placement 07/10/2025
Chronic anemia. Hemoglobin stable at 10 on day of discharge
Seizure disorder, continue Keppra and phenobarbital
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
History of traumatic brain injury status post plate placement
Thoracic and abdominal aortic aneurysm
Chronic kidney disease stage II
Tobacco use disorder
History of bilateral hip replacement
Condition: Good
Diet: Tube feeding
Referrals:
Lucia Pugh DO [Family Provider, General]
Prescriptions:
Continued
acetaminophen 325 mg Tablet
650 mg feeding tube Q4HPRN PRN (Reason: mild pain/ELDER/temp> 100.4F) Qty: 30 0RF
ipratropium-albuterol [DuoNeb] 0.5 mg-3 mg(2.5 mg base)/3 mL Solution For Nebulization
3 ml INHALATION R TID
ondansetron HCl [Zofran] 4 mg Tablet
4 mg feeding tube Q6HPRN PRN (Reason: nausea)
dextromethorphan-guaifenesin [Wbszhasdwl-Smrxs-Dwxfi-Melo] 10-100 mg/5 mL Syrup
20 ml feeding tube Q6H
Rx Instructions:
for 3 days standing order until 08/15/25
dextromethorphan-guaifenesin [Pycrajeoss-Jecqz-Xpwih-Melo] 10-100 mg/5 mL Syrup
20 ml feeding tube Q4HPRN PRN (Reason: cough)
acetaminophen [Tylenol Extra Strength] 500 mg Tablet
1,000 mg PO AMHS
pantoprazole [Protonix] 20 mg Tablet,Delayed Release (Dr/Ec)
20 mg PO DAILY
bisacodyl [Dulcolax (bisacodyl)] 10 mg Suppository
10 mg SD DAILYPRN PRN (Reason: if no bm aftr mom give on day 6)
Fleet Enema 19-7 gram/118 mL Enema
118 ml SD DAILYPRN PRN (Reason: if no bm after dulcolax give on day 6)
lorazepam [Lorazepam Intensol] 2 mg/mL Concentrate
0.5 mg feeding tube BIDPRN PRN (Reason: anxiety)
Rx Instructions:
0.25ml
Visbiome 112.5 billion cell Capsule
1 cap PO BID
diclofenac sodium [Voltaren] 1 % Gel
0 g TOPICAL HS
Lorazepam Gel 2mg/Ml
0.25 ml topical HS
sennosides [Starr-ricki] 8.6 mg tablet
8.6 mg feeding tube BID
lidocaine [AsperFlex (lidocaine)] 4 % adhesive patch,medicated
2 patch topical DAILY
polyethylene glycol 3350 17 gram powder in packet
17 g feeding tube DAILY
tamsulosin 0.4 mg capsule
0.4 mg PO HS
levetiracetam [Keppra] 100 mg/mL solution
500 mg feeding tube HS
levetiracetam [Keppra] 100 mg/mL solution
1,000 mg feeding tube BID
nicotine 14 mg patch
14 mg transdermal DAILY
amoxicillin-pot clavulanate 400-57 mg/5 mL Suspension For Reconstitution
10 ml feeding tube BID Qty: 75 0RF
Rx Instructions:
for 5 days starting
Changed
phenobarbital 32.4 mg tablet
64.8 mg feeding tube HS Qty: 60 0RF
No Action
magnesium hydroxide [Milk of Magnesia] 400 mg/5 mL Suspension
2,400 mg feeding tube [id number] PRN (Reason: if no bm by 3rd day give day 4)
Discharge Orders:
Discharge Patient (As Directed); Ordered 08/21/25
Ordered By: Srini Lauren
Discharge Date and Time
Print Language: RUSSIAN
[2025-08-21 18:04] LABS: Glucose - Point of Care 115 mg/dl (70-99)
== END 2025-08-21 22:29 | DRG 871 ==
LOC: 4 WEST ACU 16:58
PROVIDERS: Internal Medicine; Nurse Practitioner Family; Physician Assistant; ADMITTING PHYSICIAN Internal Medicine; CONSULT PHYSICIAN Internal Medicine Critical Care Medicine; EMERGENCY PHYSICIAN Emergency Medicine; FAMILY PHYSICIAN Family Medicine
DX: A41.9 Sepsis, unspecified organism (principal); J18.9 Pneumonia, unspecified organism; J69.0 Pneumonitis due to inhalation of food and vomit; J96.01 Acute respiratory failure with hypoxia; R65.21 Severe sepsis with septic shock; J44.0 Chronic obstructive pulmonary disease with (acute) lower respiratory infection; N17.9 Acute kidney failure, unspecified; E87.20 Acidosis, unspecified; G81.91 Hemiplegia, unspecified affecting right dominant side; E87.0 Hyperosmolality and hypernatremia; I13.0 Hypertensive heart and chronic kidney disease with heart failure and stage 1 through stage 4 chronic kidney disease, or unspecified chronic kidney disease; I5A Non-ischemic myocardial injury (non-traumatic); Z11.52 Encounter for screening for COVID-19; N18.32 Chronic kidney disease, stage 3b; I95.89 Other hypotension; Z87.820 Personal history of traumatic brain injury; F17.200 Nicotine dependence, unspecified, uncomplicated
CPT/HCPCS: 36600; 71045; 71046; 80048; 80053; 80202; 82607; 82805; 82962; 83036; 83540; 83550; 83605; 83735; 83880; 84100; 84443; 84478; 84484; 85025; 85027; 85610; 85730; 87040; 87070; 87205; 87502; 87641; 87811; 93005; 93306; 94002; 94003; 94640; 94669; 96365; 96375; 97116; 97163; 97167; 97530; 97535; 99285; J2916

== ENCOUNTER → 2025-08-29 09:32 | Outpatient (REF) | payer MEDICARE, SELFPAY ==
[2025-08-29 12:51] LABS: Hematocrit 26.7 % (39.0-52.0); Hemoglobin 8.6 g/dL (13.0-18.0); Mean Corp Hgb Conc. 32.2 g/dL (33.0-37.0); Mean Corpuscular Volume 98.5 fL (80.0-94.0); Nucleated Red Blood Cells % 0 % (-); Platelet Count 376 10^3/uL (130-400); Red Cell Dist. Width 15.9 % (11.5-14.5)
[2025-08-29 14:30] LABS: Blood Urea Nitrogen 37 mg/dl (9-20); Calcium 8.8 mg/dl (8.4-10.2); Carbon Dioxide 27 mmol/L (22-30); Chloride 100 mmol/L (98-107); Glucose 85 mg/dl (70-99); Potassium 5.2 mmol/L (3.5-5.1); Sodium 135 mmol/L (135-145); eGFR > 60.00
== END ==
LOC: OLABP 09:32
PROVIDERS: ATTENDING PHYSICIAN Family Medicine
DX: S32.020D Wedge compression fracture of second lumbar vertebra, subsequent encounter for fracture with routine healing (principal); G40.909 Epilepsy, unspecified, not intractable, without status epilepticus; I10 Essential (primary) hypertension
CPT/HCPCS: 36415; 80048; 85025

== ENCOUNTER → 2025-09-02 10:19 | Outpatient (REF) | payer MEDICARE, SELFPAY ==
[2025-09-02 10:55] LABS: Blood Urea Nitrogen 38 mg/dl (9-20); Calcium 8.5 mg/dl (8.4-10.2); Carbon Dioxide 24 mmol/L (22-30); Chloride 102 mmol/L (98-107); Glucose 78 mg/dl (70-99); Potassium 4.6 mmol/L (3.5-5.1); Sodium 133 mmol/L (135-145); eGFR > 60.00
== END ==
LOC: OLABP 10:19
PROVIDERS: ATTENDING PHYSICIAN Family Medicine
DX: S32.020D Wedge compression fracture of second lumbar vertebra, subsequent encounter for fracture with routine healing (principal); I10 Essential (primary) hypertension; G40.909 Epilepsy, unspecified, not intractable, without status epilepticus
CPT/HCPCS: 36415; 80048